=== PATIENT | male | born 1980 | race African-American/Black ===

== ENCOUNTER 2020-04-12 06:32 | Emergency (ER) | payer OTHER, SELFPAY ==
--- NOTE | ~2020-04-12 | XR_ITS ---
EXAMINATION: XR ankle LT min 3V DATE: 04/12/2020 07:28 INDICATION: Left ankle pain and lateral sided soft tissue swelling post injury 3 months prior. TECHNIQUE: Anteroposterior, oblique, mortise, and lateral views of the left ankle were obtained. COMPARISON: None. FINDINGS: Alignment is normal. No acute fracture. Joint spaces are well maintained. Tiny ossicles near the tip the mid lateral malleolus with suggestion of possible donor site at the tip of the lateral malleolus which could represent either chronic nonunited avulsion fracture fragments or heterotopic ossificati on related to chronic ankle sprain. Heterotopic ossification along the anteromedial margin of the masha us near the tip of the medial malleolus at the expected site of the anterior deltoid ligament also li mary jane sequela of chronic ankle sprain. No ankle joint effusion. Achilles and plantar calcaneal entheso phytes. The soft tissues are unremarkable. IMPRESSION: 1. Tiny ossicles near the tip of the lateral malleolus which could represent either chronic nonunited avulsion fracture fragments or heterotopic ossification related to chronic lateral ankle sprain. 2. Additional heterotopic ossification in the region of the anterior deltoid ligament consistent with chronic medial ankle sprain. Reviewed, dictated and finalized at location A. IMPRESSION: 1. Tiny ossicles near the tip of the lateral malleolus which could represent ei ther chronic nonunited avulsion fracture fragments or heterotopic ossification related to chronic lateral ankle sprain. 2. Additional heterotopic ossification in the region of the anterior deltoid li gament consistent with chronic medial ankle sprain.
[2020-04-12 06:35] VITALS: BP 154/86; PULSE 74; RESP 18; TEMP 36.6; O2SAT 100
--- NOTE | 2020-04-12 08:02 | ED.LOWEXIN ---
HPI - Extremity Injury (Lower) General Chief Complaint: Extremity Injury, Lower Stated Complaint: left ankle pain x3 months Time Seen by Provider: 04/12/20 07:04 Source: RN notes reviewed History of Present Illness HPI Narrative: Patient presents emergency department from home for left ankle pain. Patient states that approximately 3 months ago he was stepping down off of the ladder and twisted his left ankle. He states that since that time he is continued to have pain in his left ankle. He denies any new trauma or injury states he is able to walk on his ankle he denies any fevers or chills numbness or tingling or any other symptoms. Patient states his is in the emergency department today figured he would have it checked out while he was in the department Related Data Allergies Allergy/AdvReac Type Severity Reaction Status Date / Time AMOXICILLIN TRIHYDRATE Allergy Mild Unknown Uncoded 04/12/20 07:12 POTASSIUM CLAVULANATE Allergy Mild Unknown Uncoded 04/12/20 07:12 Review of Systems Review of Systems: Narrative: Gen.: Denies fevers or chills Musculoskeletal: See HPI Neuro: Denies numbness, tingling, weakness Skin: Denies rash Endo: Denies DM PMFSH Past Medical History Medical History (Updated 04/12/20 @ 08:05 by Carl Warren DO) Patient denies significant medical history Social History Social History (Updated 04/12/20 @ 08:03 by Carl Warren DO) Smoking status: Never smoker Gender identity (if verbalized by the patient): Male Exam Narrative: Exam Narrative: APPEARANCE: No acute distress, nontoxic, resting in bed Eyes: EOMI HEENT: Normocephalic, atraumatic, RESPIRATORY: No respiratory distress MUSCULOSKELETAl: Mild tenderness palpation over left medial malleolus no tenderness over anterior or lateral ankle, no swelling or ecchymosis, no tenderness of the foot or proximal fibula, dorsalis pedis pulse 2+, neurovascular intact NEURO: Awake and alert. Following commands, speech normal, no focal deficits SKIN:: Warm, dry. Normal Color no rash or lesions Course Course Emergency Course: Discussed with patient results of workup and diagnosis. Discussed need for follow-up with primary care, proper use of medication, and reasons to return to the emergency department. Patient understands and agrees to current treatment plan. Discussed with patient findings of chronic ankle sprain and need for follow-up with orthopedics as outpatient Vital Signs Vital signs: Vital Signs Temperature 97.8 F 04/12/20 06:35 Pulse Rate 74 04/12/20 06:35 Respiratory Rate 18 04/12/20 06:35 Blood Pressure 154/86 H 04/12/20 06:35 Pulse Oximetry 100 04/12/20 06:35 Temperature 97.8 F 04/12/20 06:35 Pulse Rate 74 04/12/20 06:35 Respiratory Rate 18 04/12/20 06:35 Blood Pressure 154/86 H 04/12/20 06:35 Pulse Oximetry 100 04/12/20 06:35 MDM - Extremity Injury (Lower) Imaging Data Radiologist's impression: ITS Impressions Ankle X-Ray 04/12/20 07:45 IMPRESSION: 1. Tiny ossicles near the tip of the lateral malleolus which could represent either chronic nonunited avulsion fracture fragments or heterotopic ossification related to chronic lateral ankle sprain. 2. Additional heterotopic ossification in the region of the anterior deltoid ligament consistent with chronic medial ankle sprain. Discharge Plan Discharge Clinical Impression: Left ankle sprain Patient Disposition: Home, Self-Care Condition: Stable Instructions: Antibiotic Form, Ankle Sprain (ED) Additional Instructions: Return for increasing pain numbness or tingling in the extremities or any other symptoms of concern Prescriptions: New ibuprofen [IBU] 600 mg tablet 600 mg PO Q6H PRN (Reason: pain) Qty: 20 RF: 0 Follow-up/Referrals: Reji Ceo MD [Physician] - (Follow-up in 5 to 7 days for further orthopedic treatment and evaluation) PHYSICIAN,ACID LEVELER [Primary Care Provider] - Time of Dispo
== END 2020-04-12 08:22 | disposition home or self-care (01) ==
PROVIDERS: Emergency Provider Emergency Medicine
DX: S93.402A Sprain of unspecified ligament of left ankle, initial encounter (principal); X50.9XXA Other and unspecified overexertion or strenuous movements or postures, initial encounter
CPT/HCPCS: 73610; 99283

== ENCOUNTER 2021-05-07 03:06 | Emergency (ER) | payer OTHER, SELFPAY ==
--- NOTE | ~2021-05-07 | CT_ITS ---
EXAMINATION: CT abdomen pelvis w con DATE: 05/07/2021 04:43 INDICATION: Abdominal pain TECHNIQUE: Computed tomography (CT) of the abdomen and pelvis was performed with 100 cc Omnipaque 350 intravenous contrast. The dose-length product was 1592.23 mGy-cm. Automated exposure control and ite rative reconstruction technique were employed. COMPARISON: CT dated 01/27/2011 FINDINGS: Patchy groundglass opacities of the left upper and lower lobe consistent with pneumonia. Chris rderline heart size. No significant pleural or pericardial effusion. Fatty infiltration of the liver. Fat-containing periumbilical hernia. Small fat-containing supraumbilical ventral hernia. There is a 4 mm distal left ureteral stone with left perinephric and periureteral edema and delayed l eft renal nephrogram compared with right, consistent with obstruction. The spleen, pancreas, adrenal glands and right kidney are unremarkable. Normal appendix. Nonobstructi ve bowel gas pattern. No free air. Mild lumbar spondylosis. No significant free fluid. IMPRESSION: 1. Distal left ureteral stone measuring 4 mm with mild left hydronephrosis and left periureteral/manfred nephric edema. 2: Patchy groundglass opacities of the left upper and lower lobe, suspicious for pneumonia. 3: Hepatic steatosis. Dr. Nate Spear discussed with Dr. Eulogio Shoemaker MD at 05/07/2021 07:13 CDT. Reviewed, dictated and finalized at location A. IMPRESSION: 1. Distal left ureteral stone measuring 4 mm with mild left hydronephrosis and left periureteral/perinephric edema. 2: Patchy groundglass opacities of the left upper and lower lobe, suspicious fo r pneumonia. 3: Hepatic steatosis. Dr. Nate Spear discussed with Dr. Eulogio Shoemaker MD at 05/07/2021 07:1 3 CDT.
[2021-05-07 03:20] VITALS: BP 228/133; PULSE 86; RESP 21; TEMP 37.3; O2SAT 97
--- NOTE | 2021-05-07 03:26 | PC.NURSE ---
Pt presents to ED with complaints of left abdominal pain and radiates to left lower back. Pt states he has been constipated for the past two days. Also complains of urinary discomfort. States he has been treating symptoms with acv. 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 Pt restless due to pain and states pain increases when he sits. Pt noted to be alert and oriented x4 and in no obvious distress. Breathing noted to be even and unlabored at this time. Call button and personal items within reach. Pt advised to press call button for assistance.
--- NOTE | 2021-05-07 03:30 | PC.NURSE ---
EDMD presented to bedside.
[2021-05-07] MEDS: SODIUM CHLORIDE 0.9% IV 1,000 ML 999 ML IV CONT (03:49)
[2021-05-07] MEDS: ONDANSETRON INJ 4 MG/2 ML VIAL IV PUSH (03:49)
[2021-05-07] MEDS: KETOROLAC 30 MG/ML VIAL (*BKC) IV PUSH (03:50)
[2021-05-07] MEDS: DICYCLOMINE HCL INJ 20 MG/2 ML VIAL IM (03:54)
[2021-05-07 03:58] LABS: Basophils Percent Auto 0.2 % (0.2-1.2); Eosinophils Absolute Auto 0.2 K/mm3 (0-0.3); Eosinophils Percent Auto 1.1 % (0-4.4); Hematocrit 44.7 % (42.0-52.0); Hemoglobin 14.8 g/dL (14.0-18.0); Immature Granulocyte Absolute 0.03 K/mm3 (0.00-0.031); Immature Granulocyte Percent A 0.2 % (0-0.5); Lymphocytes Absolute Auto 2.12 K/mm3 (0.9-3.2); Mean Corpuscular HGB Conc 33.1 g/dl (32-36); Mean Corpuscular Hemoglobin 30.2 pg (26-34); Mean Corpuscular Volume 91.2 fl (80-100); Mean Platelet Volume 10.5 fl (7.4-10.4); Monocytes Absolute Auto 0.9 K/mm3 (0.1-0.6); Monocytes Percent Auto 6.7 % (2.6-8.5); Neutrophils Percent Auto 75.8 % (45.5-73.1); Platelet Count Result 250 k/mm3 (150-375); Red Cell Distribution Width 11.6 % (11.5-14.5); White Blood Count 13.2 K/mm3 (4.5-10.0)
--- NOTE | 2021-05-07 04:04 | ED.GENADULT ---
HPI - General Adult General Chief complaint: Abdominal Pain Stated complaint: abdominal pain Time Seen by Provider: 05/07/21 03:16 History of Present Illness HPI narrative: Patient 41-year-old gentleman who presents the emergency department with chief complaint of abdominal pain. Patient states that he has been having left-sided abdominal pain for several days reports that he has not had a bowel movement in a couple of days but has been passing gas. Patient denies prior abdominal surgery denies history of kidney stones states is not having any nausea or vomiting denies dysuria. Patient states that not improved by anything nor is it worsened by anything Related Data Allergies Allergy/AdvReac Type Severity Reaction Status Date / Time AMOXICILLIN TRIHYDRATE Allergy Mild Unknown Uncoded 04/12/20 07:12 POTASSIUM CLAVULANATE Allergy Mild Unknown Uncoded 04/12/20 07:12 Review of Systems Review of Systems: Narrative: A 10 system review of systems was completed on the patient and is negative except for what is stated in the HPI. Nursing and ancillary documentation was reviewed. PMFSH Past Medical History Medical History Patient denies significant medical history Social History Social History Smoking status: Never smoker Gender identity (if verbalized by the patient): Male Exam Narrative: Exam Narrative: GENERAL: Well-appearing, well-nourished, and in no acute distress. HEAD: Normocephalic, atraumatic. EYES: PERRLA and EOMI. ENT: Nares clear, no rhinorrhea or epistaxis. Mucous membranes moist. NECK: Supple. CHEST: Clear to auscultation. No respiratory distress. HEART: Regular rate and rhythm. No murmur heard. Normal peripheral pulses. ABDOMEN: Soft, tenderness to palpation in the left side of the abdomen, nondistended, normal active bowel sounds. EXTREMITIES: Normal range of motion. No edema. SKIN: Warm, dry, no rash. NEURO: No focal deficits. Alert and oriented x3. PSYCH: Normal mood and affect. Course Vital Signs Vital signs: Vital Signs Temperature 37.3 C 05/07/21 03:20 Pulse Rate 86 05/07/21 03:20 Respiratory Rate 21 H 05/07/21 03:20 Blood Pressure 228/133 H 05/07/21 03:20 Pulse Oximetry 97 05/07/21 03:20 Temperature 37.3 C 05/07/21 03:20 Pulse Rate 86 05/07/21 03:20 Respiratory Rate 21 H 05/07/21 03:20 Blood Pressure 228/133 H 05/07/21 03:20 Pulse Oximetry 97 05/07/21 03:20 Medical Decision Making Vital Signs Vital Signs: Vital Signs Temperature 37.3 C 05/07/21 03:20 Pulse Rate 86 05/07/21 03:20 Respiratory Rate 21 H 05/07/21 03:20 Blood Pressure 228/133 H 05/07/21 03:20 Pulse Oximetry 97 05/07/21 03:20 Temperature 37.3 C 05/07/21 03:20 Pulse Rate 86 05/07/21 03:20 Respiratory Rate 21 H 05/07/21 03:20 Blood Pressure 228/133 H 05/07/21 03:20 Pulse Oximetry 97 05/07/21 03:20 Lab Data Result diagrams: 05/07/21 03:45 05/07/21 03:45 Labs: Lab Results 05/07/21 05/07/21 05/07/21 Range/Units 03:45 03:45 03:46 WBC 13.2 H (4.5-10.0) K/mm3 RBC 4.90 (4.6-6.20) M/mm3 Hgb 14.8 (14.0-18.0) g/dL Hct 44.7 (42.0-52.0) % MCV 91.2 (80-100) fl MCH 30.2 (26-34) pg MCHC 33.1 (32-36) g/dl RDW 11.6 (11.5-14.5) % Plt Count 250 (150-375) k/mm3 MPV 10.5 H (7.4-10.4) fl Immature Gran % (Auto) 0.2 (0-0.5) % Neut % (Auto) 75.8 H (45.5-73.1) % Lymph % (Auto) 16.0 L (18.3-44.2) % Wolfe % (Auto) 6.7 (2.6-8.5) % Eos % (Auto) 1.1 (0-4.4) % Baso % (Auto) 0.2 (0.2-1.2) % Lymph # (Auto) 2.12 (0.9-3.2) K/mm3 Wolfe # (Auto) 0.9 H (0.1-0.6) K/mm3 Eos # (Auto) 0.2 (0-0.3) K/mm3 Baso # (Auto) 0.0 (0.0-0.1) K/mm3 Abs Immat Gran (auto) 0.03 (0.00-0.031) K/mm3 Absolute Neuts (auto) 10.0 H (1.3-6.7) K/mm3
[2021-05-07 04:12] LABS: Add Urine Microscopic? YES; Appearance Urine Clear (Clear); Bilirubin Urine Negative (Negative); Blood Urine Negative (Negative); Color Urine Straw (Yellow); Glucose Urine UA Negative (Negative); Ketones Urine Negative (Negative); Leukocyte Esterase Ur Negative LEU/UL (Negative); Mucus Urine Rare /lpf; Nitrate Urine Negative (Negative); Protein Urine 1+ mg/dL (Negative); RBC Urine 0-2 /hpf (0-2); Specific Grav Ur 1.014 (1.001-1.035); Urobilinogen Urine Negative mg/dL (<2.0); WBC Urine 0-3 /hpf
[2021-05-07 04:22] LABS: Alanine Aminotransferase 34 U/L (4-50); Albumin Level 4.8 g/dL (3.5-5.1); Alkaline Phosphatase 117 U/L (38-126); Anion Gap 10 mmol/L (8-16); Aspartate Amino Transferase 49 U/L (17-59); Bilirubin,Total 0.5 mg/dL (0.2-1.3); Blood Urea Nitrogen 18 mg/dL (9-20); Calcium 9.7 mg/dL (8.4-10.2); Carbon Dioxide 28 mmol/L (22-30); Chloride 103 mmol/L (98-107); Estimated CRCL calculation 70 ml/min; Estimated Glomerular Filt Rate 54; Glucose 114 mg/dL (75-110); Lipase 118 U/L (23-300); Potassium 4.1 mmol/L (3.4-5.0); Sodium 141 mmol/L (137-145)
--- NOTE | 2021-05-07 04:30 | PC.NURSE ---
Pt to radiology via cart.
--- NOTE | 2021-05-07 04:32 | PC.NURSE ---
Pt returned from Radiology.
--- NOTE | 2021-05-07 04:50 | PC.NURSE ---
Pt returned from radiology
--- NOTE | 2021-05-07 04:59 | PC.NURSE ---
Pt in room resting on cart in its lowest position with call button and personal items within reach .Pt advised to press call button for assistance.
--- NOTE | 2021-05-07 05:03 | PC.NURSE ---
IV fluids continue to infuse due to positional site. Will stop when completed.
--- NOTE | 2021-05-07 05:37 | PC.NURSE ---
Pt resting on cart in its lowest position with call button and personal items within reach. Pt denies all pain and discomfort at this time.
[2021-05-07] MEDS: TAMSULOSIN HCL 0.4 MG CAPSULE PO (06:07)
--- NOTE | 2021-05-07 06:16 | PC.NURSE ---
EDMD presented to bedside to update pt on poc. All questions and concerns addressed. Pt advised to follow up with pcp and provided a urine strainer.
[2021-05-07 06:17] VITALS: BP 191/122; PULSE 72; RESP 20; TEMP 36.5; O2SAT 98
== END 2021-05-07 06:19 | disposition home or self-care (01) ==
PROVIDERS: Emergency Provider Emergency Medicine; PCP Family Medicine
DX: N13.2 Hydronephrosis with renal and ureteral calculous obstruction (principal); R91.8 Other nonspecific abnormal finding of lung field; K76.0 Fatty (change of) liver, not elsewhere classified
CPT/HCPCS: 36415; 74177; 80053; 81001; 83690; 85025; 96361; 96372; 96374; 96375; 99284; A9270; J0500; J1885; J2405; J7030; Q9967

== ENCOUNTER 2022-01-16 22:50 | Emergency (ER) | payer OTHER, SELFPAY ==
[2022-01-16 22:54] VITALS: BP 198/88; PULSE 95; RESP 20; TEMP 37.1; O2SAT 100
--- NOTE | 2022-01-16 23:36 | ED.FALL ---
HPI - Fall General Chief Complaint: Fall Stated Complaint: Left arm, back pain from fall Time Seen by Provider: 01/16/22 23:05 Source: patient Mode of arrival: ambulatory Limitations: no limitations History of Present Illness HPI Narrative: 41-year-old male presents today with complaints of left back pain left arm pain and left buttock pain radiating down the leg. Patient states yesterday he fell on the ice. Patient states yesterday he had no pain went to bed and woke up this morning with pain. Patient denies using any pain relieving medications today. Patient states aggravating factors include certain movements. Patient currently has no alleviating factors. Patient states he did hit his head when he fell but denies LOC. Related Data Home Medications Medication Instructions Recorded Confirmed No Home Medications 01/16/22 01/16/22 Allergies Allergy/AdvReac Type Severity Reaction Status Date / Time AMOXICILLIN TRIHYDRATE Allergy Mild Unknown Uncoded 01/16/22 23:34 POTASSIUM CLAVULANATE Allergy Mild Unknown Uncoded 01/16/22 23:34 Review of Systems Review of Systems: CONSTITUTIONAL: Denies fever, chills, or sweats. EYES: Denies visual changes, redness, or discharge. ENT: Denies rhinorrhea, congestion, sore throat, or otalgia. CARDIOVASCULAR: Denies chest pain, palpitations, or edema. RESPIRATORY: Denies cough or dyspnea. GASTROINTESTINAL: Denies abdominal pain, nausea, vomiting, or diarrhea. GENITOURINARY: Denies dysuria or hematuria. SKIN: Denies rash or itching. MUSCULOSKELETAL: Positive for back pain, left forearm pain, left buttock pain. NEUROLOGIC: Denies headache, numbness, dizziness, or weakness. PSYCHIATRIC: Denies anxiety or depression. Or Stewart [facility] Past Medical History Medical History Patient denies significant medical history Social History Social History Smoking status: Never smoker Gender identity (if verbalized by the patient): Male Exam Narrative: GENERAL: Well-appearing, well-nourished, and in no acute distress. HEAD: Normocephalic, atraumatic. EYES: PERRLA and EOMI. ENT: Nares clear, no rhinorrhea or epistaxis. Mucous membranes moist. Oropharynx without tonsillar hypertrophy exudate or other lesions. Bilateral TMs pearly springer nonbulging NECK: Supple. No adenopathy or masses. No carotid bruits or JVD CHEST: Clear to auscultation. No respiratory distress. No wheezes rales or rhonchi HEART: Regular rate and rhythm. No murmur heard. Normal peripheral pulses. ABDOMEN: Soft, nontender, nondistended, normal active bowel sounds. EXTREMITIES: Normal range of motion. No edema. Muscle spasms noted to back. SKIN: Warm, dry, no rash. NEURO: No focal deficits. Alert and oriented x3. PSYCH: Normal mood and affect. Course Course Emergency Course: Patient's pain is positional in nature and localized to back without signs of cord compression or cauda equina based on neurological exam, skeletal exam and history. No fever or other significant factors to suggest osteomyelitis or spinal epidural abscess. No symptoms or signs to suggest pain is referred from abdominal or / cardiopulmonary sources. No pulsatile masses noted on exam. Patient ambulates with steady gait and is stable for outpatient management given case findings. Patient without blurred vision, chest pain, SOB. Patient unsure last time he was at a physician. BP elevated: patient in pain, has increased stress, and has mentioned he will be paying for this due to no insurance. BP elevated. Patient to be discharge home with follow up with primary care. Reinforced diet and weight loss for helping to control BP. 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 Patient to follow up with primary. Vital Signs Vital signs: Vital Signs Temperature 37.1 C 01/16/22 22:54 Pulse Rate 9
[2022-01-16] MEDS: CYCLOBENZAPRINE HCL 10 MG TABLET PO (23:42)
[2022-01-16 23:47] VITALS: BP 170/108; PULSE 87; RESP 16; O2SAT 97
== END 2022-01-17 00:18 | disposition home or self-care (01) ==
PROVIDERS: Emergency Provider Nurse Practitioner Family
DX: S29.012A Strain of muscle and tendon of back wall of thorax, initial encounter (principal); W00.0XXA Fall on same level due to ice and snow, initial encounter
CPT/HCPCS: 99283; A9270

== ENCOUNTER 2022-10-02 05:08 | Emergency (ER) | payer BC, SELFPAY ==
[2022-10-02] VITALS (18 sets, daily range): BP systolic 184–214; BP diastolic 127–140; PULSE 75–96; RESP 14–25; TEMP 36.6; O2SAT 97–100
--- NOTE | ~2022-10-02 | XR_ITS ---
EXAMINATION: XR chest 2V DATE: 10/02/2022 05:38 INDICATION: Shortness of breath TECHNIQUE: PA and lateral views of the chest are obtained. COMPARISON: 07/31/2017 FINDINGS: Cardiomegaly is noted. There are patchy interstitial and airspace opacities of the lungs. N o pleural effusion or pneumothorax. There is mild thoracic spondylosis. IMPRESSION: 1. Cardiomegaly. 2. Patchy opacities of the lungs which could reflect pneumonia and/or pulmonary edema. Reviewed, dictated and finalized at location B. IFIED CODER
[2022-10-02] MEDS: ALBUTEROL SULFATE NEB 2.5 MG/3 ML INH 5 MG INHALATION (05:55)
--- NOTE | 2022-10-02 05:56 | ED.GENADULT ---
HPI - General Adult General Chief complaint: Shortness of Breath/Dyspnea Stated complaint: shortness of breath Time Seen by Provider: 10/02/22 05:21 History of Present Illness HPI narrative: 42-year-old male presented the emergency department for evaluation of worsening shortness of breath. Patient does have a history of asthma and states over the last 2 weeks he has had an asthma exacerbation. Patient states that he is at rest his shortness of breath is controlled but he does notices shortness of breath with ambulation and exertion. Patient states he has been using his albuterol inhaler more frequently and states this does help. Patient denies any associated chest. Patient denies any history of diabetes, hypertension, high cholesterol. Related Data Allergies Allergy/AdvReac Type Severity Reaction Status Date / Time AMOXICILLIN TRIHYDRATE Allergy Mild Unknown Uncoded 01/16/22 23:34 POTASSIUM CLAVULANATE Allergy Mild Unknown Uncoded 01/16/22 23:34 Review of Systems Review of Systems: CONSTITUTIONAL: Denies fever, chills, or sweats. EYES: Denies visual changes, redness, or discharge. ENT: Denies rhinorrhea, congestion, sore throat, or otalgia. CARDIOVASCULAR: Denies chest pain, palpitations, or edema. RESPIRATORY: See HPI GASTROINTESTINAL: Denies abdominal pain, nausea, vomiting, or diarrhea. GENITOURINARY: Denies dysuria or hematuria. SKIN: Denies rash or itching. MUSCULOSKELETAL: Denies back pain, joint pain, or myalgia. NEUROLOGIC: Denies headache, numbness, or weakness. PMFSH Past Medical History Medical History Patient denies significant medical history Social History Social History Smoking status: Never smoker Gender identity (if verbalized by the patient): Male Exam Narrative: APPEARANCE: Well appearing, no pain, no distress, well-nourished. HEAD: normocephalic, atraumatic. EYES: PERRLA/EOMI, conjunctivae clear. NOSE: Normal no drainage EARS:TMS clear with good light reflex. THROAT: Pharynx clear, no exudate. NECK: Supple. No adenopathy, no masses. RESPIRATORY: Minor expiratory wheeze CARDIOVASCULAR: Regular rate and rhythm without murmurs rubs or gallops. ABDOMINAL: Soft, nontender, nondistended, normal bowel sounds MUSCULOSKELETAL: Moves all extremities. Strength/ROM intact, No edema, No calf tenderness. NEURO: Alert. Cranial nerves II through XII intact. Grossly intact SKIN: Warm, dry. Normal Color Course Course Emergency Course: Patient did feel significantly improved after a breathing treatment. Patient's blood pressure was elevated but patient declined treatment for this. Patient was started on prednisone for a suspected asthma exacerbation. Patient was also started on azithromycin for concern of atypical pneumonia due to the persistence of the cough. Vital Signs Vital signs: Vital Signs Temperature 97.9 F 10/02/22 05:09 Pulse Rate 91 10/02/22 05:09 Respiratory Rate 24 H 10/02/22 05:09 Blood Pressure 195/138 H 10/02/22 05:09 Pulse Oximetry 97 10/02/22 05:09 Oxygen Delivery Room Air 10/02/22 05:09 Temperature 97.9 F 10/02/22 05:09 Pulse Rate 75 10/02/22 07:00 Respiratory Rate 18 10/02/22 07:00 Blood Pressure 205/129 H 10/02/22 06:47 Pulse Oximetry 100 10/02/22 07:00 Oxygen Delivery Room Air 10/02/22 05:27 Medical Decision Making Vital Signs Vital Signs: Vital Signs Temperature 97.9 F 10/02/22 05:09 Pulse Rate 91 10/02/22 05:09 Respiratory Rate 24 H 10/02/22 05:09 Blood Pressure 195/138 H 10/02/22 05:09 Pulse Oximetry 97 10/02/22 05:09 Oxygen Delivery Room Air 10/02/22 05:09 Temperature 97.9 F 10/02/22 05:09 Pulse Rate 75 10/02/22 07:00 Respiratory Rate 18 10/02/22 07:00 Blood Pressure 205/129 H 10/02/22 06:47 Pulse Oximetry 100 10/02/22 07:00 Oxygen Delivery Room Air 10/02/22 05:27
[2022-10-02] MEDS: predniSONE 40 MG, predniSONE 10 MG 50 MG PO (05:57)
[2022-10-02 06:26] LABS: Influenza A QL RT-PCR Negative (Negative); Influenza B QL RT-PCR Negative (Negative); SARS-CoV-2 RNA PCR Negative
== END 2022-10-02 07:10 | disposition home or self-care (01) ==
PROVIDERS: Emergency Provider Emergency Medicine; PCP Internal Medicine
DX: J45.901 Unspecified asthma with (acute) exacerbation (principal); Z20.822 Contact with and (suspected) exposure to COVID-19
CPT/HCPCS: 71046; 87636; 94640; 99283; J7512

== ENCOUNTER 2022-10-31 14:22 | Observation (INO) | payer BC, SELFPAY ==
[2022-10-31] VITALS (151 sets, daily range): BP systolic 159–195; BP diastolic 103–143; PULSE 78–110; RESP 10–37; TEMP 37.3; O2SAT 94–100
--- NOTE | ~2022-10-31 | CT_ITS ---
EXAMINATION: CTA chest PE protocol DATE: 10/31/2022 18:01 INDICATION: sob.left upper back pain, rule out PE TECHNIQUE: Computed tomography angiography (CTA) of the chest was performed with 100 mL Omnipaque-350 intravenous contrast timed to evaluate the pulmonary arteries. Coronal maximum intensity projection 3D-reconstructions were created by the technologist. The dose-length product (DLP) was 1091.16 mGy-cm . Automated exposure control and iterative reconstruction technique were employed. COMPARISON: X-ray chest, same date. FINDINGS: Lung parenchyma and airways: Minimal peripheral reticular and groundglass opacities. Pleura: Unremarkable. Thoracic inlet, axillae and chest wall: Unremarkable. Thoracic aorta: Normal. Mediastinum: Normal. Prominent but subcentimeter mediastinal and paraesophageal lymph nodes. Heart and pericardium: The heart is enlarged. No pericardial effusion. Coronary artery calcifications: Absent. Upper abdomen: No significant finding. Bones: No acute osseous finding. Pulmonary arteries: Study quality: Adequate. No pulmonary emboli detected. IMPRESSION: No CT evidence of acute pulmonary embolus. Mild bronchiolitis. Cardiomegaly. Reviewed, dictated and finalized at location K. IRON INSPECTOR
--- NOTE | ~2022-10-31 | XR_ITS ---
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 RESULT: Lines, tubes, and devices: None. Lungs and pleura: Slightly increased peripheral reticular opacities, overlying potentially chronic r eticulonodular opacities. No focal consolidation, large effusion, or pneumothorax Cardiomediastinal silhouette: Stable. Other: No acute osseous or upper abdominal finding. IMPRESSION: Pulmonary opacities may represent bronchiolitis, as can be seen with atypical infection, asthma, aspi ration, and small airways disease. Reviewed, dictated and finalized at location K. UNICATION SKILLS INSTRUCTOR IMPRESSION: Pulmonary opacities may represent bronchiolitis, as can be seen with atypical i nfection, asthma, aspiration, and small airways disease.
--- NOTE | 2022-10-31 14:53 | ECG_ITS ---
Measurements Intervals [place] Rate: 92 P: 47 NC: 153 QRS: 31 QRSD: 96 T: -32 QT: 370 QTc: 458 Interpretive Statements SINUS RHYTHM LEFT ATRIAL ENLARGEMENT [-0.15mV P-WAVE IN V1/V2] NONSPECIFIC T-WAVE ABNORMALITY NO PREVIOUS ECG AVAILABLE FOR COMPARISON Electronically Signed On 11-01-2022 8:28:16 ELECTRONICS PROCESSOR by Jeramy Hartley M.D.
[2022-10-31 16:25] LABS: Basophils Percent Auto 0.3 % (0.2-1.2); Eosinophils Absolute Auto 0.4 K/mm3 (0-0.3); Eosinophils Percent Auto 4.7 % (0-4.4); Hematocrit 41.8 % (42.0-52.0); Hemoglobin 14.2 g/dL (14.0-18.0); Immature Granulocyte Absolute 0.02 K/mm3 (0.00-0.031); Immature Granulocyte Percent A 0.2 % (0-0.5); Lymphocytes Absolute Auto 2.59 K/mm3 (0.9-3.2); Lymphocytes Percent Auto 28.9 % (18.3-44.2); Mean Corpuscular Hemoglobin 30.8 pg (26-34); Mean Corpuscular Volume 90.7 fl (80-100); Mean Platelet Volume 10.3 fl (7.4-10.4); Monocytes Absolute Auto 0.5 K/mm3 (0.1-0.6); Neutrophils Absolute Auto 5.5 K/mm3 (1.3-6.7); Neutrophils Percent Auto 60.9 % (45.5-73.1); Platelet Count Result 212 k/mm3 (150-375); Red Blood Count 4.61 M/mm3 (4.6-6.20)
[2022-10-31 16:38] LABS: Alanine Aminotransferase 82 U/L (6-50); Albumin Level 3.9 g/dL (3.5-5.1); Alkaline Phosphatase 94 U/L (38-126); Anion Gap 3 mmol/L (8-16); Aspartate Amino Transferase 48 U/L (17-59); Bilirubin,Total 0.6 mg/dL (0.2-1.3); Blood Urea Nitrogen 15 mg/dL (9-20); Calcium 8.5 mg/dL (8.4-10.2); Carbon Dioxide 30 mmol/L (22-30); Chloride 106 mmol/L (98-107); Estimated CRCL calculation 107 ml/min; Estimated Glomerular Filt Rate > 60; Glucose 94 mg/dL (65-110); Potassium 4.1 mmol/L (3.4-5.0); Sodium 139 mmol/L (137-145)
--- NOTE | 2022-10-31 16:40 | ED.BACK ---
HPI - Back Pain/Injury General Chief Complaint: Back Pain/Injury Stated Complaint: back pain, LUE tingling Time Seen by Provider: 10/31/22 15:23 Source: patient and RN notes reviewed Mode of arrival: ambulatory Limitations: no limitations History of Present Illness HPI Narrative: This is a 42 year old male with history of asthma who presents for evaluation of left upper back tightness for 1 month. He states he has had constant tightness for 3-4 weeks. He was evaluated at [place] 1 month ago for his symptoms and he was treated for acute asthma exacerbation. He was discharge with prednisone. He states he initially felt better but his pain worsened again. He is reports mild cough and shortness of breath. He denies chest pain, abdominal pain, fever, chills, nausea or vomiting. He states he returned tonight because he has tingling and tightness going down his left arm. He states the numbness has resolved. He denies left side weakness, left leg numbness, dizziness or headache. Related Data Allergies Allergy/AdvReac Type Severity Reaction Status Date / Time AMOXICILLIN TRIHYDRATE Allergy Mild Unknown Uncoded 01/16/22 23:34 POTASSIUM CLAVULANATE Allergy Mild Unknown Uncoded 01/16/22 23:34 Review of Systems Review of Systems: All systems reviewed & are unremarkable except as noted in HPI and below Constitutional: Constitutional: Denies chills, Denies fatigue and Denies fever(s) ENT: Denies nasal congestion Cardiovascular: Cardiovascular: Denies chest pain and Denies rapid heart rate Respiratory: Respiratory: Denies chest congestion, Reports cough, Reports dyspnea and Reports wheezing Gastrointestinal: Gastrointestinal: Denies abdominal pain, Denies nausea and Denies vomiting Musculoskeletal: Musculoskeletal: Reports back pain Neurologic: Denies dizziness, Denies syncope, Denies headache(s), Denies focal weakness and Reports numbness PMFSH Past Medical History Medical History Asthma Social History Social History Smoking status: Never smoker Gender identity (if verbalized by the patient): Male Exam Narrative: GENERAL: Well-appearing, well-nourished, and in no acute distress. HEAD: Normocephalic, atraumatic EYES: PERRLA and EOMI, conjunctiva clear without discharge EARS: TM's clear bilaterally without erythema or dullness NOSE: Nares clear, no rhinorrhea or epistaxis THROAT:Mucous membranes moist, Oropharynx normal without erythema, exudate, peritonsillar swelling or fluctuance NECK: Supple, without lymphadenopathy or mass RESPIRATORY: No respiratory distress, Airway patent, Respirations non-labored, Clear to auscultation without rales, rhonchi or wheeze HEART: Regular rate and rhythm. No murmur heard. Normal peripheral pulses. ABDOMEN: Soft, nontender, nondistended, normal active bowel sounds. No masses. No rebound or guarding, No organomegaly. EXTREMITIES: No edema, normal strength with full range of motion. SKIN: Warm, dry, normal color without rash NEURO: Alert and oriented x3. CN 2-12 grossly intact. No focal deficits. PSYCH: Normal mood and affect. Neuro: Speech: No Abnormal speech present Course Reevaluation(s) Reevaluation #1: PAtient presented with upper back tightness. This may be due to asthma but I am concerned due to severely elevated BP. troponin is mildly elevated likely due to hypertension. he denies chest pain. He is agreeable to admission. I have discussed case with Robyn who agrees to admit in IMU. Date: 10/31/22 Time: 19:26 Vital Signs Vital signs: Vital Signs Temperature 99.2 F 10/31/22 14:47 Pulse Rate 105 H 10/31/22 14:47 Respiratory Rate 18 10/31/22 14:47 Blood Pressure 159/103 H 10/31/22 14:47 Pulse Oximetry 95 10/31/22 14:47 Oxygen Delivery Room Air 10/31/22 14:47 Temperature 99.2 F 10/31/22 14:47 Pulse Rate 105 H 10/31/22 14:47 Re
[2022-10-31 17:09] LABS: Prothrombin Time 13.2 Seconds (11.1-14.7)
[2022-10-31] MEDS: LABETALOL HCL INJ 100 MG/20 ML VIAL 10 MG IV PUSH (17:31)
[2022-10-31 17:57] LABS: Influenza A QL RT-PCR Negative (Negative); Influenza B QL RT-PCR Negative (Negative); SARS-CoV-2 RNA PCR Negative
--- NOTE | 2022-10-31 18:00 | PC.NURSE ---
Left arm BP 187/136 Right arm BP 185/124 Right leg BP 224/153 Left leg BP 210/141
[2022-10-31] MEDS: hydrALAZINE HCL 20 MG/ML VIAL IV PUSH (18:07)
[2022-10-31] MEDS: predniSONE 20 MG TABLET 60 MG PO (18:30)
[2022-10-31] MEDS: ALBUTEROL SULFATE (*SP) AEROSOL 1 PUFF 2 PUFF INHALATION (18:56)
--- NOTE | 2022-10-31 20:00 | PM.IMHP ---
H&P: HPI History of Present Illness Date/Time: 10/31/22 20:00 Chief Complaint: ?tightness around his lungs Narrative: 42-year-old male with past medical history of reported morbid obesity and asthma who presented to the ER with tightness around his lungs for several weeks. The patient had been evaluated in the ER on 10/02/2022 and was diagnosed with asthma exacerbation. At that time he reported dyspnea with exertion. He was discharged on prednisone and azithromycin. He denied prior history of hypertension but every time the patient has been evaluated in the ER since 2019 he has had documented blood pressures ranging between 150 systolic up to 230 systolic. The patient reports that today he was driving when he developed pressure in his left back. The pain travel down his left arm and was tingling and numbness sensation. The symptoms improved after he arrived to the ER and received 20 mg of IV hydralazine, 1 in nitropaste and albuterol inhaler. After medications were administered the patient's blood pressures improved from the 190 systolic down to the 160s. He has not seen a physician since the beginning of . His insurance assigned admit new physician and has not yet followed up. He does not check his blood pressures at home. He relates all of his episodes of dyspnea due to his history of asthma. However the patient had not had asthma symptoms since childhood until a a couple of years ago. He thinks that his symptoms were related to starting an antibiotic therapy in that react the aging his asthma. He denies any wheezing. He has not had any lower extremity swelling or orthopnea. His reports that he does intermittently snore more a but the patient denies symptoms of daytime fatigue or excessive daytime sleepiness. He denies any significant cough or cold symptoms, fevers or chills. He denies any recent ill contacts. He reports that he has been having increased asthma symptoms and has been having to use his albuterol inhaler couple of times a week. He ran out of his albuterol inhaler this past week. Patient is obese but reports that his weight is been stable. I would start the patient on lisinopril and hydrochlorothiazide. Patient was admitted as observation status. I went down to evaluate the patient in the ER. After I completed march history and was educating the patient about his disease process the patient stated that he knew his blood pressure was elevated due to being uncomfortable in the ER bed. I tried to explain to the patient the risks of chronically uncontrolled hypertension in that his blood pressures have been elevated for years each time he has been evaluated. The level of his blood pressure elevation was not mild in is not likely just due to white coat hypertension. I discussed risks including developing chronic kidney disease and stroke. Risk of with severe stroke was also discussed. Patient did have an elevated troponin but troponin profile is were flat. I did indicate to the patient that this is a sign that his heart is not dealing well with his excessive hypertension. The patient indicated that he was probably still going to leave AM. I told the patient if he did decide to leave AM that I would provide him with script for antihypertensives. Unfortunately, nursing staff did not inform me the patient was definitely leaving [facility] and the found out after the patient artery left the hospital. Thusly the patient did not receive prescriptions for lisinopril 20 and hydrochlorothiazide 25 that is been ordered. However patient did not seem interested in taking the medications as he still did not believe that he truly had hypertension. Review of Systems Review of Systems: 12 systems were reviewed with pertinent positives and negatives per HPI. Except as documented in the HPI, all other systems were reviewed and are negative. [facility] Past Medical History Medical History (Updated 11/01/22 @ 20:19 by Odette Miranda, DO
[2022-10-31] MEDS: NITROGLYCERIN OINTMENT 1 INCH DOSE TRANSDERM (20:25)
[2022-10-31] MEDS: lisinopriL 20 MG TABLET PO (20:33)
[2022-10-31 20:38] LABS: Troponin I 0.052 ng/mL (0.000-0.034)
[2022-10-31 21:55] LABS: RSV RNA, RT-PCR Negative (Negative)
[2022-10-31 22:11] LABS: Appearance Urine Clear (Clear); Bilirubin Urine Negative (Negative); Blood Urine Negative (Negative); Color Urine Yellow (Yellow); Glucose Urine UA Negative (Negative); Ketones Urine Negative (Negative); Leukocyte Esterase Ur Negative LEU/UL (Negative); Nitrate Urine Negative (Negative); Protein Urine Negative (Negative); Specific Grav Ur 1.015 (1.001-1.035); Urobilinogen Urine 0.2 mg/dL (<2.0)
[2022-10-31 22:29] LABS: Add Urine Microscopic? NO
[2022-10-31 22:30] LABS: Amphetamine Screen Urine Negative (Negative); Barbiturate Screen Urine Negative (Negative); Benzodiazepines Screen Urine Negative (Negative); Cannabinoid Screen Urine Negative (Negative); Cocaine Screen Urine Negative (Negative); Methadone Screen Urine Negative (Negative); Opiate Screen Urine Negative (Negative); Phencyclidine Screen Urine Negative (Negative)
[2022-11-01] MEDS: hydrALAZINE HCL 20 MG/ML VIAL 10 MG IV PUSH (00:40)
[2022-11-01 00:41] VITALS: BP 184/110; PULSE 87
[2022-11-01 00:51] VITALS: BP 168/110; PULSE 87; RESP 21; O2SAT 100
== END 2022-11-01 01:00 | disposition left against medical advice (07) ==
LOC: ANHED 18:35 → ANHIMU 11-01 00:42
PROVIDERS: Emergency Medicine; Admitting Provider Internal Medicine; Emergency Provider General Practice; PCP Internal Medicine; Visit Provider Internal Medicine
DX: I16.0 Hypertensive urgency (principal); R77.8 Other specified abnormalities of plasma proteins; J20.9 Acute bronchitis, unspecified; J21.9 Acute bronchiolitis, unspecified; M54.9 Dorsalgia, unspecified; J45.909 Unspecified asthma, uncomplicated; R20.2 Paresthesia of skin; Z53.29 Procedure and treatment not carried out because of patient's decision for other reasons; Z20.822 Contact with and (suspected) exposure to COVID-19; E66.9 Obesity, unspecified; Z68.41 Body mass index [BMI] 40.0-44.9, adult; R94.31 Abnormal electrocardiogram [ECG] [EKG]; K76.0 Fatty (change of) liver, not elsewhere classified; Z87.442 Personal history of urinary calculi; F10.90 Alcohol use, unspecified, uncomplicated; Z79.51 Long term (current) use of inhaled steroids; Z79.52 Long term (current) use of systemic steroids; Z82.5 Family history of asthma and other chronic lower respiratory diseases; Z79.899 Other long term (current) drug therapy
CPT/HCPCS: 36415; 71046; 71275; 80053; 80307; 81003; 84443; 84484; 85025; 85380; 85610; 85730; 87634; 87636; 93005; 96374; 96375; 99285; A9270; G0378; J0360; J7512; Q9967

== ENCOUNTER 2022-11-02 14:12 | Inpatient (IN) | payer BC, SELFPAY ==
[2022-11-02] VITALS (11 sets, daily range): BP systolic 164–184; BP diastolic 108–130; PULSE 79–103; RESP 16–25; TEMP 36.4–36.9; O2SAT 95–99; BMI 39.6
--- NOTE | ~2022-11-02 | NM_ITS ---
EXAMINATION: NM stress w perf spect multi DATE: 11/04/2022 15:35 INDICATION: Chest pain. TECHNIQUE: Rest images were obtained following intravenous administration of 10.4 mCi Tc99m tetrofosm in (Re.nooble). The patient performed an exercise activity. At peak exercise, 33 mCi Tc99m tetrofosmin (Myoview) was administered intravenously, and supine and prone stress images were obtained. Data was reconstructed into short axis and horizontal and vertical long axis SPECT images. Gated SPECT images were also obtained. COMPARISON: Chest CT 10/31/2022 FINDINGS: There is left ventricular enlargement of the heart. There is a small, moderate severity, fi xed perfusion defect involving left ventricular apex and apical inferior segment, consistent with inf arct. No reversible component to suggest ischemia. There is global hypokinesis. Left ventricular ej ection fraction measures 23%. IMPRESSION: 1. 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 2. Global hypokinesis with left ventricular ejection fraction measuring 23%. Reviewed, dictated and finalized at location A. ESTRA DIRECTOR IMPRESSION: 1. Small area of moderate infarct involving left ventricular apex and apical in ferior segment. 2. Global hypokinesis with left ventricular ejection fraction measuring 23%.
--- NOTE | ~2022-11-02 | XR_ITS ---
EXAMINATION: XR chest 2V Exam Date/Time: 11/02/2022 15:38 FORTUNE COOKIE MAKER HISTORY: chest pain Comparison: 10/31/2022. RESULT: Lines, tubes, and devices: None. Lungs and pleura: Unchanged diffuse reticulonodular opacities. Cardiomediastinal silhouette: Stable. Other: No acute osseous or upper abdominal finding. IMPRESSION: Changes suggestive of mild bronchiolitis, unchanged. Reviewed, dictated and finalized at location K. UNE COOKIE MAKER
--- NOTE | ~2022-11-02 | US_ITS ---
EXAMINATION: US right upper quadrant DATE: 11/03/2022 15:56 INDICATION: Elevated liver function tests TECHNIQUE: Multiple grayscale and Doppler ultrasound images of the abdomen were obtained. COMPARISON: None FINDINGS: The visualized head and body of the pancreas are normal. Visualized proximal to mid inferior vena cav a is normal. Liver has normal echogenicity and contour, with a smooth surface. No liver lesion identi fied. No intrahepatic biliary duct dilation suspected. Portal venous flow was seen in the hepatopetal , normal direction and has normal Doppler waveform. Visualized portion of the right kidney demonstrat es normal contour and echogenicity with no hydronephrosis. The gallbladder is normal in appearance. There is no cholelithiasis. The common bile duct measures 6 mm, which is at the upper limits of jeanine l. The region of the distal common bile duct is obscured. Sonographic Fernandez sign was reported as neg ative by the rag washer. IMPRESSION: 1. Normal right upper quadrant ultrasound. Reviewed, dictated and finalized at location A. GHT WEIGHER
--- NOTE | 2022-11-02 14:46 | ECG_ITS ---
Measurements Intervals Pedro Rate: 88 P: 47 DC: 139 QRS: 24 QRSD: 98 T: 26 QT: 374 QTc: 454 Interpretive Statements SINUS RHYTHM WITH SINUS ARRHYTHMIA POSSIBLE LEFT ATRIAL ENLARGEMENT [-0.1mV P WAVE IN V1/V2] NONSPECIFIC T-WAVE ABNORMALITY COMPARED TO ECG 10/31/2022 14:58:13 NO SIGNIFICANT DIFFERENCE Electronically Signed On 11-02-2022 15:18:34 [employer]BER[employer] SALES AGENT by Jeramy Hartley M.D.
[2022-11-02 15:34] LABS: Basophils Percent Auto 0.4 % (0.2-1.2); Eosinophils Absolute Auto 0.2 K/mm3 (0-0.3); Eosinophils Percent Auto 2.9 % (0-4.4); Hematocrit 45.2 % (42.0-52.0); Hemoglobin 14.6 g/dL (14.0-18.0); Immature Granulocyte Absolute 0.02 K/mm3 (0.00-0.031); Immature Granulocyte Percent A 0.2 % (0-0.5); Lymphocytes Absolute Auto 2.45 K/mm3 (0.9-3.2); Lymphocytes Percent Auto 29.2 % (18.3-44.2); Mean Corpuscular HGB Conc 32.3 g/dl (32-36); Mean Corpuscular Hemoglobin 29.8 pg (26-34); Mean Corpuscular Volume 92.2 fl (80-100); Mean Platelet Volume 10.7 fl (7.4-10.4); Monocytes Absolute Auto 0.5 K/mm3 (0.1-0.6); Monocytes Percent Auto 6.3 % (2.6-8.5); Neutrophils Absolute Auto 5.1 K/mm3 (1.3-6.7); Platelet Count Result 241 k/mm3 (150-375); White Blood Count 8.4 K/mm3 (4.5-10.0)
[2022-11-02 15:47] LABS: Alanine Aminotransferase 82 U/L (6-50); Albumin Level 4.3 g/dL (3.5-5.1); Alkaline Phosphatase 66 U/L (38-126); Anion Gap 6 mmol/L (8-16); Aspartate Amino Transferase 96 U/L (17-59); Bilirubin,Total 0.8 mg/dL (0.2-1.3); Blood Urea Nitrogen 18 mg/dL (9-20); Calcium 8.7 mg/dL (8.4-10.2); Carbon Dioxide 27 mmol/L (22-30); Chloride 105 mmol/L (98-107); Estimated CRCL calculation 91 ml/min; Estimated Glomerular Filt Rate > 60; Glucose 95 mg/dL (65-110); Lipase 96 U/L (23-300); Potassium 4.5 mmol/L (3.4-5.0); Sodium 138 mmol/L (137-145)
[2022-11-02 15:51] LABS: INR 1.1; Prothrombin Time 13.8 Seconds (11.1-14.7)
[2022-11-02 15:52] LABS: Partial Thromboplastin Time 32.4 SECONDS (22.3-36.8)
[2022-11-02 16:02] LABS: Troponin I 0.043 ng/mL (0.000-0.034)
[2022-11-02] MEDS: ASPIRIN 81 MG CHEWABLE TABLET 324 MG PO (16:36)
[2022-11-02] MEDS: hydrALAZINE HCL 20 MG/ML VIAL 10 MG IV PUSH (16:40)
--- NOTE | 2022-11-02 18:50 | ED.GENADULT ---
HPI - General Adult General Chief complaint: Recheck/Abnormal Lab/Rx Stated complaint: ELEVATED BP X3D Time Seen by Provider: 11/02/22 15:52 History of Present Illness HPI narrative: Patient is a 42-year-old male who presents ER with headache and shoulder pain. Patient admitted to the hospital on 10/31/2022 with hypertensive urgency/emergency however he then signed out AMA. Reports today he had sudden onset of headache and then pain in his left shoulder tingling down his arm which was similar to previous visit. He takes no antihypertensive medications. No exertional chest discomfort. No alleviating factors that he is found. He is once in hospital at this time. Denies drug use. Related Data Home Medications Medication Instructions Recorded Confirmed albuterol sulfate 90 mcg/actuation 1 inh inhalation PRN PRN Shortness 11/02/22 11/02/22 aerosol inhaler Of Breath Or Wheezing Allergies Allergy/AdvReac Type Severity Reaction Status Date / Time AMOXICILLIN TRIHYDRATE Allergy Mild Unknown Uncoded 01/16/22 23:34 POTASSIUM CLAVULANATE Allergy Mild Unknown Uncoded 01/16/22 23:34 Review of Systems Review of Systems: All systems reviewed & are unremarkable except as noted in HPI and below Constitutional: Constitutional: Denies chills, Denies fatigue and Denies fever(s) ENT: Denies nasal congestion and Denies sore throat Cardiovascular: Cardiovascular: Denies chest pain, Denies rapid heart rate and Reports radiating jaw, neck or arm pain Respiratory: Respiratory: Denies cough, Denies dyspnea and Denies wheezing Neurologic: Denies syncope, Reports headache(s), Denies focal weakness and Denies numbness PMF Past Medical History Medical History (Updated 11/03/22 @ 00:02 by Vito Zuleta MD) Asthma Essential hypertension, malignant Hepatic steatosis Kidney stones Left ureteral stone with hydronephrosis April 2021 Obesity BMI of 41.4 10/31/2022 Surgical History Surgical History (Updated 11/01/22 @ 20:20 by Odette Miranda DO) History of tonsillectomy (~2018) Family History Family History Father , 68 Agent orange exposure Mother Asthma Meningitis Social History Social History Social History: Patient lives with his of 21 years. They have 2 children ages 18 and 19 years old. He very rarely drinks alcohol and only small amounts. 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 Smoking status: Never smoker Alcohol intake: current Drinks per week: 1 Alcohol use details: Rare use in small amounts Substance use: never Lack of Transportation: No Lack of Food: Never True Current Housing: I Have Housing Concerned About Future Housing: No Difficulty Paying Gas/Electric Bills: No Difficulty Paying for Meds: No Currently Unemployed: No Education: Trade/Vocational Certificate Difficulty w/ Childcare or Family Care: No Additional living arrangements comments: Gender identity (if verbalized by the patient): Male Sexual Orientation (if Verbalized by the Patient): Straight or Heterosexual Spiritual care concerns: No Exam Narrative: GENERAL: Well-appearing, well-nourished, and in no acute distress. HEAD: Normocephalic, atraumatic. ENT: Mucous membranes moist. CHEST: Clear to auscultation. No respiratory distress. HEART: Regular rate and rhythm. Normal peripheral pulses. ABDOMEN: Soft, nontender, nondistended. EXTREMITIES: Normal range of motion. No edema. SKIN: Warm, dry, no rash. NEURO: Alert and oriented x3. PSYCH: Normal mood and affect. Course Course Emergency Course: Patient resting comfortably. Discussed treatment plan. Admit to hospital service. Vital Signs Vital signs: Vital Signs Temperature 98.5 F 11/02/22 14:44 Pulse Rate 93 11/02/22 14:44 Respiratory Rate 20 11/02/22 14:44 Blood
[2022-11-02] MEDS: lisinopriL 20 MG TABLET PO (18:58)
[2022-11-02] MEDS: hydroCHLOROthiazide 25 MG TABLET PO (18:58)
--- NOTE | 2022-11-02 19:16 | PC.NURSE ---
Assumed care of pt at this time.
[2022-11-02 20:16] LABS: Influenza A QL RT-PCR Negative (Negative); Influenza B QL RT-PCR Negative (Negative); SARS-CoV-2 RNA PCR Negative
[2022-11-02 20:18] LABS: Troponin I 0.052 ng/mL (0.000-0.034)
[2022-11-02 22:30] LABS: Troponin I 0.043 ng/mL (0.000-0.034)
--- NOTE | 2022-11-02 23:08 | PM.IMHP ---
H&P: HPI History of Present Illness Date/Time: 11/02/22 21:45 Chief Complaint: Left back pain, headache, high blood pressure Narrative: 42-year-old male with past medical history of obesity and asthma who presented to the ER 10/31/2022 and was found to be hypertensive emergency with blood pressures in the 180-220 systolic with diastolics in the 100-120 range. The patient was having a accompanying pain to the back of his left shoulder that would radiate down his arm. I had actually seen and examined the patient in excepted inferred admission. However the patient left the ER against medical advice after he received a dose of lisinopril of 20 mg. The patient's symptoms during that hospitalization resolved after he received IV hydralazine and IV labetalol and nitro paste. He denied headaches at that time but he returned to the hospital today he reported that he he had been having headaches the other day associated with her his left arm numbness and left posterior shoulder/back pain. He stated that the only reason he left the hospital the other day was because he had to complete a job he was contacted to do. He reports that there are no eliciting or relieving factors for his episodes of pain. He denies any nausea or vomiting or visual changes. He denies any associated chest pain. He has not been having any orthopnea or lower extremity swelling. He does have intermittent shortness of breath which he relates to his asthma. He was evaluated in the ER on August for shortness of breath and was given steroids and azithromycin for an asthma exacerbation. He reported symptoms improved for about 2 weeks but he has been having some intermittent symptoms recently. He ran out of his albuterol inhaler. He denies any cough or shortness of breath currently. He does not have any wheezing noted on exam. He does snore intermittently. He denies daytime fatigue or excessive daytime sleepiness. His stop Bang score is 4-5. Review of Systems Review of Systems: 12 systems were reviewed with pertinent positives and negatives per HPI. Except as documented in the HPI, all other systems were reviewed and are negative. [facility] Past Medical History Medical History (Updated 11/03/22 @ 04:41 by Odette Miranda DO) Asthma Essential hypertension, malignant Hepatic steatosis Kidney stones Left ureteral stone with hydronephrosis April 2021 Obesity BMI of 41.4 10/31/2022 Surgical History Surgical History History of tonsillectomy (~2018) Family History Family History Father , 68 Agent orange exposure Mother Asthma Meningitis Social History Social History (Updated 11/03/22 @ 04:36 by Odette Miranda DO) Social History: Patient lives with his of 21 years. They have 2 children ages 18 and 19 years old. He very rarely drinks alcohol and only small amounts. 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 Code status: Full code Surrogate decision maker: Smoking status: Never smoker Alcohol intake: current Drinks per week: 1 Alcohol use details: Rare use in small amounts Substance use: never Lack of Transportation: No Lack of Food: Never True Current Housing: I Have Housing Concerned About Future Housing: No Difficulty Paying Gas/Electric Bills: No Difficulty Paying for Meds: No Currently Unemployed: No Education: Trade/Vocational Certificate Difficulty w/ Childcare or Family Care: No Additional living arrangements comments: Gender identity (if verbalized by the patient): Male Sexual Orientation (if Verbalized by the Patient): Straight or Heterosexual Spiritual care concerns: No Meds Home Medications and Allergies Home Medications Medication Instructions Recorded Confirmed Type albuterol sulfate 90 mcg/actuation 1 inh inhalation PRN
[2022-11-03] VITALS (16 sets, daily range): BP systolic 132–170; BP diastolic 72–110; PULSE 65–105; RESP 12–18; TEMP 36.6–36.8; O2SAT 97–99
--- NOTE | 2022-11-03 | ECHO_ITS ---
Patient Info Name: Gerson Navarrete Age: 42 years : 1980 Gender: Male Ht: 70 in Wt: 288 lbs BSA: 2.60 m2 HR: 66 bpm BP: 132 / 72 mmHg Heart Rhythm: Sinus Rhythm Technical Quality: Good Exam Date: 11/03/2022 10:59 AM Exam Location: Echo Lab Patient Status: Inpatient Admit Date: 11/02/2022 Staff Ordering Physician: Odette Miranda DO Core Finisher: Lilian Vargas RDCS Attending Provider: Candida Kruse MD Referring Physician: Ruth BYRNE; Exam Type: CA echo dop color flow w con Study Info Indications - Uncontrolled hypertension Complete two-dimensional, color flow and Doppler transthoracic echocardiogram is performed with contrast to opacify the left ventricle and to improve the deliniation of the left ventricle endocardial borders. Contrast/Agitated Saline Contrast/Ag. Saline: Definity Amount: 3.00 ml Administered By: Lilian Vargas RDCS Existing IV Access: Yes IV Access Condition: patent with no signs of infiltration Summary 1. Left ventricular chamber dimension is moderately enlarged. 2. Definity contrast administered improved wall motion interpretation. 3. Left ventricular systolic function is moderately reduced, estimated at 35-40%. 4. There is moderately increased left ventricular wall thickness. 5. The left ventricular diastolic function is abnormal. 6. E/e' 16 is elevated. 7. Left atrial chamber dimension is moderately enlarged. 8. There is trace aortic valve regurgitation. 9. There is trace mitral valve regurgitation. 10. There is mild tricuspid valve regurgitation. 11. No pulmonary hypertension, estimated pulmonary arterial systolic pressure is 32 mmHg. Left Ventricle Definity contrast administered improved wall motion interpretation. E/e' 16 is elevated. Left ventricular chamber dimension is moderately enlarged. Left ventricular systolic function is moderately reduced, estimated at 35-40%. There is moderately increased left ventricular wall thickness. The left ventricular diastolic function is abnormal. Right Ventricle Right ventricular systolic function is normal and with normal TAPSE 2.4 cm. Right ventricular chamber dimension is normal. Left Atria Left atrial chamber dimension is moderately enlarged. Right Atria Right atrial chamber dimension is normal. Aortic Valve The aortic valve is trileaflet. There is no aortic valve stenosis. There is trace aortic valve regurgitation. Pulmonic Valve There is no pulmonic regurgitation. Mitral Valve There is no mitral valve stenosis. There is trace mitral valve regurgitation. Tricuspid Valve There is mild tricuspid valve regurgitation. No pulmonary hypertension, estimated pulmonary arterial systolic pressure is 32 mmHg. Pericardium/Pleural There is no pericardial effusion. Inferior Vena Cava Normal inferior vena cava with >50% collapse upon inspiration consistent with normal right atrial pressure, 5 mmHg. Aorta The aortic root size at the sinus of Valsalva is normal. Left Ventricular Outflow Tract Name Value Normal LVOT 2D LVOT Diameter 2.29 cm LVOT Doppler
[2022-11-03] MEDS: hydrALAZINE HCL 20 MG/ML VIAL 10 MG IV PUSH (01:38)
[2022-11-03] MEDS: cloNIDine HCL 0.1 MG TABLET PO (04:42)
--- NOTE | 2022-11-03 05:07 | ADMGEN ---
This patient, Gerson Navarrete, was admitted to IMU Room 209-01. Patient/family oriented to hospital policies and general routines including ID bracelet, bed and alarms, visiting hours, pain management, procedures, bathroom and other care routines, personal items, smoking policy, room service/diet, and visiting hours. Information on how to activate the Rapid Response Team has been discussed. Patient/Family are encouraged to report perceived risks to care and to ask questions if they do not understand what they are told or what they should do.
[2022-11-03] MEDS: ENOXAPARIN 40 MG/0.4 ML SYRINGE SUB-Q (08:14)
[2022-11-03] MEDS: lisinopriL 20 MG TABLET PO (08:14)
[2022-11-03] MEDS: hydroCHLOROthiazide 25 MG TABLET PO (08:14)
[2022-11-03 09:33] LABS: Alanine Aminotransferase 67 U/L (6-50); Albumin Level 4.1 g/dL (3.5-5.1); Alkaline Phosphatase 60 U/L (38-126); Anion Gap 6 mmol/L (8-16); Aspartate Amino Transferase 70 U/L (17-59); Bilirubin,Total 0.8 mg/dL (0.2-1.3); Blood Urea Nitrogen 13 mg/dL (9-20); Calcium 8.7 mg/dL (8.4-10.2); Carbon Dioxide 27 mmol/L (22-30); Chloride 100 mmol/L (98-107); Estimated CRCL calculation 104 ml/min; Estimated Glomerular Filt Rate > 60; Glucose 134 mg/dL (65-110); Potassium 3.5 mmol/L (3.4-5.0); Sodium 133 mmol/L (137-145)
[2022-11-03 10:25] LABS: Hepatitis B Surface Antigen Negative (Negative)
[2022-11-03 10:31] LABS: HAV RESULT Negative (Negative); Hepatitis B Core IgM Result Negative (Negative)
[2022-11-03 10:42] LABS: Hepatitis C Virus Antibody Negative (Negative)
[2022-11-03] MEDS: PERFLUTREN LIPID MICROSPHERES 1.5 ML VIAL DILUTED TO 10 ML TOTAL VOLUME IV PUSH (11:20)
--- NOTE | 2022-11-03 11:53 | IVDEFINITY ---
Prior to administration of IV Definity the patient was educated on the risks and benefits of the imaging enhancing agent including potential adverse side effects. The patient verbalized understanding. Allergies were verified. No exclusion criteria were identified and at least one of the following inclusion criteria were met: 1) physician request, 2) patient technically difficult to image (per the [place] [employer] guidelines of two or more segments not discernable within the apical view), or 3) questionable left ventricular function. ?
--- NOTE | 2022-11-03 17:15 | PM.IMPN ---
Progress Note: A&P Assessment and Plan (1) Essential hypertension, malignant: Code(s): I10 - Essential (primary) hypertension Status: Acute Assessment and Plan: Patient has malignant HTN/HTN emergency due to chronically uncontrolled HTN with symptoms of headache and back pain with elevated troponins. BP was 178/130 on admission. He was continued on lisinopril and hydrochlorothiazide that was started on October 31. He was also give 1 time dose of p.o. clonidine. UA clear. Echo shows EF 35-40% with diastolic dysfunction. Suspect this is related to uncontrolled HTN. Consider underlying ischemia. Will stop HCTZ and add Metorpolol. Try to avoid over-correction of BP. Cardiology consult. (2) Elevated troponin: Code(s): R77.8 - Other specified abnormalities of plasma proteins Status: Acute Assessment and Plan: Troponin peaked at 0.052. EKG reviewed showing NSR with sinus arrhythmia and nonspecific T wave changes. Suspect elevated Trop related to cardiac strain from the elevated BP. UDS negative on 10/31. As above (3) LV dysfunction: Code(s): I51.9 - Heart disease, unspecified Status: Acute Assessment and Plan: Echo showing EF 35-40%. Add metoprolol. Cardiology to see (4) Asthma: Code(s): J45.909 - Unspecified asthma, uncomplicated Status: Acute Assessment and Plan: Stable. Has Albuterol prn. No wheezing. Follow (5) Elevated LFTs: Code(s): R79.89 - Other specified abnormal findings of blood chemistry Status: Acute Assessment and Plan: AST/ALT mildly elevated (AST>ALT but no hx of alcohol abuse). Hepatitis panel negative. RUQ US normal. Probably related to transient hepatic congestion. Levels trending down. Subjective Date/time seen: 11/03/22 17:15 Interval history: 42yo male with asthma here for left arm and shoulder pain described as tightness and found to have HTN urgency. Symptoms resolved. No CP. Does not have a PCP. Feels better overall. Exam Narrative: AF 98.2 147/98 74 16 99% ra Gen - NARD Chest - CTA bilaterally, nml RR CV - RRR S1/S2. Tele showing no significant dysrhythmias Abd - Soft, obese, Positive BS Ext - No pedal edema Neuro - Alert and oriented. Nonfocal exam. Psych - Nml mood and affect Skin - Warm and dry Objective Data Vital Signs Vital Signs: Vital Signs - 24 hr 11/02/22 17:26 11/02/22 19:10 11/02/22 19:53 Temperature Pulse Rate 89 103 H 88 Respiratory Rate 16 18 25 H Blood Pressure 173/110 H 182/108 H 170/117 H Pulse Oximetry 98 99 97 11/02/22 21:05 11/02/22 22:12 11/02/22 22:38 Temperature 97.6 F Pulse Rate 79 82 82 Respiratory Rate 24 H 20 Blood Pressure 164/111 H 184/125 H Pulse Oximetry 95 97 11/02/22 22:30 11/03/22 00:00 11/03/22 01:40 Temperature Pulse Rate 83 87 Respiratory Rate Blood Pressure 170/110 H Pulse Oximetry 11/03/22 02:00 11/03/22 04:00 11/03/22 04:00 Temperature 97.9 F Pulse Rate 88 70 93 Respiratory Rate 18 Blood Pressure 132/72 Pulse Oximetry 97 11/03/22 06:00 11/03/22 08:00 11/03/22 08:00 Temperature 97.8 F 97.8 F Pulse Rate 66 72 72 Respiratory Rate 16 16 Blood Pressure 146/89 H 146/89 H Pulse Oximetry 99 99 11/03/22 08:00 11/03/22 09:56 11/03/22 12:00 Temperature 97.9 F Pulse Rate 65 77 77 Respiratory Rate 12 Blood Pressure 138/86 Pulse Oximetry 99 11/03/22 12:00 11/03/22 16:00 Temperature 97.9 F 98.2 F Pulse Rate 77 74 Respiratory Rate 12 16 Blood Pressure 138/86 147/98 H Pulse Oximetry 99 99 Intake/Output Intake/Output: Intake & Output 10/31/22 11/01/22 11/02/22 11/03/22 23:59 23:59 23:59 23:59 Intake Total 490 Balance 490 Meds/Results Medications: Active Medications Generic Name Dose Route Start Last Admin Trade Name Freq PRN Reason Stop Dose Admin Acetaminophen 650 mg 11/02/22 19:00 Acetaminophen 325 Mg Tablet PO
[2022-11-03] MEDS: METOPROLOL TARTRATE 25 MG TABLET PO (20:41)
[2022-11-04] VITALS (15 sets, daily range): BP systolic 121–161; BP diastolic 65–106; PULSE 60–89; RESP 16–20; TEMP 36.3–37.1; O2SAT 94–100
--- NOTE | 2022-11-04 | EST_ITS ---
Patient Info Name: Gerson Navarrete Age: 42 years : 1980 Gender: Male Ht: 70 in Wt: 275 lbs BSA: 2.54 m2 Exam Date: 11/04/2022 2:02 PM Exam Location: [facility] Stress Patient Status: Inpatient Admit Date: 11/02/2022 Staff Ordering Physician: Candis Arcos MD Attending Provider: Candida Kruse MD Exercise Technologist: Sonny Fernandez RDCS, RT Exercise Physician: Candis Arcos MD Exam Type: CA stress test treadmill w NM Study Info A nuclear stress test was performed. Summary 1. No abnormal ST/T wave changes diagnostic of ischemia with exercise. 2. Occasional PVCs. 3. Exercise capacity very good at >10 METS. 4. No chest discomfort with stress test. 5. Please correlate with nuclear medicine images, reported separately. Protocol: [facility] Stress ECG Details Stage: REST Duration (min): 1 min : 11 sec Speed (mph): 0.0 Grade (%): 0 HR (bpm): 74 SBP (mmHg): 142 DBP (mmHg): 112 METS: --- Stage: REST Duration (min): 3 min : 28 sec Speed (mph): 0.0 Grade (%): 0 HR (bpm): 77 SBP (mmHg): 142 DBP (mmHg): 112 METS: --- Stage: STAGE 1 Duration (min): 1 min : 0 sec Speed (mph): 1.7 Grade (%): 10 HR (bpm): 107 SBP (mmHg): 142 DBP (mmHg): 112 METS: --- Stage: STAGE 1 Duration (min): 2 min : 0 sec Speed (mph): 1.7 Grade (%): 10 HR (bpm): 122 SBP (mmHg): 142 DBP (mmHg): 112 METS: --- Stage: STAGE 1 Duration (min): 3 min : 0 sec Speed (mph): 1.7 Grade (%): 10 HR (bpm): 124 SBP (mmHg): 187 DBP (mmHg): 119 METS: --- Stage: STAGE 2 Duration (min): 1 min : 0 sec Speed (mph): 2.5 Grade (%): 12 HR (bpm): 132 SBP (mmHg): 187 DBP (mmHg): 119 METS: --- Stage: STAGE 2 Duration (min): 2 min : 0 sec Speed (mph): 2.5 Grade (%): 12 HR (bpm): 138 SBP (mmHg): 185 DBP (mmHg): 98 METS: --- Stage: STAGE 2 Duration (min): 3 min : 0 sec Speed (mph): 2.5 Grade (%): 12 HR (bpm): 143 SBP (mmHg): 185 DBP (mmHg): 98 METS: --- Stage: STAGE 3 Duration (min): 1 min : 0 sec Speed (mph): 3.4 Grade (%): 14 HR (bpm): 156 SBP (mmHg): 191 DBP (mmHg): 110 METS: --- Stage: STAGE 3 Duration (min): 1 min : 50 sec Speed (mph): 3.4 Grade (%): 14 HR (bpm): 157 SBP (mmHg): 191 DBP (mmHg): 110 METS: --- Stage: RECOVERY Duration (min): 0 min : 9 sec Speed (mph): 1.5 Grade (%): 0 HR (bpm): 158 SBP (mmHg): 191 DBP (mmHg): 110 METS: --- Stage: RECOVERY Duration (min): 1 min : 9 sec Speed (mph): 0.0 Grade (%): 0 HR (bpm): 130 SBP (mmHg): 191 DBP (mmHg): 110 METS: --- Stage: RECOVERY Duration (min): 2 min : 9 sec Speed (mph): 0.0 Grade (%): 0 HR (bpm): 113 SBP (mmHg): 191 DBP (mmHg): 110 METS: ---
[2022-11-04] MEDS: lisinopriL 10 MG TABLET PO (08:58)
[2022-11-04] MEDS: METOPROLOL TARTRATE 25 MG TABLET PO (08:58)
--- NOTE | 2022-11-04 11:37 | PM.CNCAR ---
Assessment and Plan Assessment and plan (1) LV dysfunction: Code(s): I51.9 - Heart disease, unspecified Status: Acute (2) Essential hypertension, malignant: Code(s): I10 - Essential (primary) hypertension Status: Acute (3) Hypertensive urgency: Code(s): I16.0 - Hypertensive urgency Status: Acute (4) Elevated troponin: Code(s): R77.8 - Other specified abnormalities of plasma proteins Status: Acute Plan His LV dysfunction may most likely be due to uncontrolled chronic HTN, however, an ischemic evaluation is still warranted to rule out underlying obstructive coronary artery disease. I discussed with the patient that the gold standard for evaluating for coronary artery disease is with a coronary angiography, however, patient would like to avoid invasive testing at this time and he prefers non-invasive testing. Will obtain an MPI. Discussed with patient that if MPI shows abnormality concerning for obstructive CAD, then a cardiac cath would be recommended, and he agrees to undergo cath at that point. Also discussed with the patient that if his MPI is normal, and his LVEF does not improve with GDMT in the near future as an outpatient, then we would recommend cardiac cath to still definitely rule out obstructive CAD, and he agrees with that. Patient already started on Lisinopril. Continue Lisinopril for now. Will need to be uptitrated or switched to Entresto. Switching from Entresto to Lisinopril requires a 36-hour washout period, so if patient is not gonna be in the hospital for that long, then we can switch to Entresto as an outpatient. Patient already started on Metoprolol tartrate. Will switch his Metoprolol to Coreg. Will start Aldactone and Jardiance as well. We will have patient follow-up with us in our clinic. History of Present Illness History of Present Illness Consult date/time: 11/04/22 11:37 Requesting physician: Eulogio Caal MD Consult reason: hypertension, congestive heart failure and Other (Elevated troponin) Reason For Visit: hypertensive emergency Narrative: This is a pleasant 42-year-old male with a history of asthma and obesity who presented initially to the ER on 10/31 and was found to be in hypertensive emergency with SBP as high as 200s. Patient reports that he was driving when he got back pain that radiated to left arm. No chest pain. Patient states that the ER was really busy that night and he had to go to work, so he had to leave the ER. Patient's symptoms at that time had resolved with BP control. Patient returned on 11/02 with the same symptoms along with a headache. His blood pressure this time noted to be as high as 180s/120s. He is being treated for hypertensive urgency. Troponins were checked on admission and were mildly elevated, however, flat. TTE done this admission shows LVEF 35-40%, moderately increased LV wall thickness. moderately enlarged left atrial chamber. Therefore, Cardiology consulted. Patient denies any chest pain, shortness of breath, lightheadedness/dizziness, palpitations to me. He states he does not take any medications at home for his blood pressure. Review of Systems Review of Systems: 12-point ROS obtained. Negative, unless stated in HPI. [facility] Past Medical History Medical History Asthma Essential hypertension, malignant Hepatic steatosis Kidney stones Left ureteral stone with hydronephrosis April 2021 Obesity BMI of 41.4 10/31/2022 Surgical History Surgical History History of tonsillectomy (~2018) Family History Family History Father , 68 Agent orange exposure Mother Asthma Meningitis Social History Social History Social History: Patient lives with his of 21 years. They have 2 children ages 18 a
[2022-11-04] MEDS: SPIRONOLACTONE 25 MG TABLET PO (17:30)
[2022-11-04] MEDS: ENOXAPARIN 40 MG/0.4 ML SYRINGE SUB-Q (17:30)
[2022-11-04] MEDS: EMPAGLIFLOZIN 10 MG TABLET PO (17:32)
--- NOTE | 2022-11-04 19:41 | PM.IMPN ---
Progress Note: A&P Assessment and Plan (1) Essential hypertension, malignant: Code(s): I10 - Essential (primary) hypertension Status: Acute Assessment and Plan: Patient has malignant HTN/HTN emergency due to chronically uncontrolled HTN with symptoms of headache and back pain with elevated troponins. BP was 178/130 on admission. He was continued on lisinopril and hydrochlorothiazide that was started on October 31. He was also give 1 time dose of p.o. clonidine. UA clear. Echo shows EF 35-40% with diastolic dysfunction. Suspect this is related to uncontrolled HTN. Consider underlying ischemia. Cardiology consulted and medications changed. (2) Elevated troponin: Code(s): R77.8 - Other specified abnormalities of plasma proteins Status: Acute Assessment and Plan: Troponin peaked at 0.052. EKG reviewed showing NSR with sinus arrhythmia and nonspecific T wave changes. Suspect elevated Trop related to cardiac strain from the elevated BP. UDS negative on 10/31. He had Lexiscan stress test today. EKG protion showing no acute ST/T wave changes. Nuclear images pending. (3) LV dysfunction: Code(s): I51.9 - Heart disease, unspecified Status: Acute Assessment and Plan: Echo showing EF 35-40%. Medications adjusted and now on Coreg, Lisinopril, Empag and Spirono. Patient states he has good insurance and feels he will be able to afford these medications. (4) Asthma: Code(s): J45.909 - Unspecified asthma, uncomplicated Status: Acute Assessment and Plan: Stable. Has Albuterol prn. No wheezing. Follow (5) Elevated LFTs: Code(s): R79.89 - Other specified abnormal findings of blood chemistry Status: Acute Assessment and Plan: AST/ALT mildly elevated (AST>ALT but no hx of alcohol abuse). Hepatitis panel negative. RUQ US normal. Probably related to transient hepatic congestion. Levels trending down. Subjective Date/time seen: 11/04/22 19:41 Interval history: 42yo male with asthma here for left arm and shoulder pain described as tightness and found to have HTN urgency. No problems overnight. No CP or SOB. No n/v. No wheezing. Exam Narrative: AF 97.3 161/106 71 18 98% ra Gen - NARD Chest - CTA bilaterally, nml RR CV - RRR S1/S2 Abd - Soft, obese, Positive BS Ext - No pedal edema Neuro - Alert and oriented. Nonfocal exam. Psych - Nml mood and affect Skin - Warm and dry Objective Data Vital Signs Vital Signs: Vital Signs - 24 hr 11/03/22 20:00 11/03/22 20:41 11/03/22 20:00 Temperature 98.0 F Pulse Rate 96 105 H 104 H Respiratory Rate 18 Blood Pressure 154/101 H Pulse Oximetry 98 Oxygen Delivery 11/03/22 20:00 11/03/22 22:00 11/03/22 23:08 Temperature Pulse Rate 104 H 89 Respiratory Rate 18 Blood Pressure Pulse Oximetry 98 98 Oxygen Delivery Room Air Room Air 11/03/22 23:53 11/04/22 00:00 11/04/22 00:00 Temperature 98.0 F Pulse Rate 72 86 86 Respiratory Rate 18 18 Blood Pressure 153/108 H Pulse Oximetry 98 98 Oxygen Delivery Room Air 11/04/22 02:00 11/04/22 04:00 11/04/22 04:00 Temperature Pulse Rate 60 62 62 Respiratory Rate 18 Blood Pressure Pulse Oximetry 98 Oxygen Delivery Room Air 11/04/22 04:00 11/04/22 06:00 11/04/22 08:00 Temperature 98.3 F 97.5 F L Pulse Rate 69 66 66 Respiratory Rate 20 16 Blood Pressure 144/90 H 140/101 H Pulse Oximetry 97 96 Oxygen Delivery 11/04/22 08:58 11/04/22 08:00 11/04/22 08:00 Temperature Pulse Rate 64 62 Respiratory Rate Blood Pressure Pulse Oximetry Oxygen Delivery Room Air 11/04/22 10:00 11/04/22 12:00 11/04/22 12:00 Temperature 97.3 F L Pulse Rate 70 80 Respiratory Rate 18 Blood Pressure 147/105 H Pulse Oximetry 94 Oxygen Delivery Room Air 11/04/22 12:00 11/04/22 16:00 11/04/22 16:00 Temperature 97.3 F L Pulse Rate 71 80 72 Respirato
[2022-11-04] MEDS: carvediloL 12.5 MG TABLET PO (21:01)
[2022-11-05] VITALS (17 sets, daily range): BP systolic 126–151; BP diastolic 71–102; PULSE 66–82; RESP 16–20; TEMP 36–37.1; O2SAT 97–100
[2022-11-05] MEDS: carvediloL 12.5 MG TABLET PO ×2 (08:06→20:36)
[2022-11-05] MEDS: EMPAGLIFLOZIN 10 MG TABLET PO (08:06)
[2022-11-05] MEDS: SPIRONOLACTONE 25 MG TABLET PO (08:07)
[2022-11-05] MEDS: lisinopriL 10 MG TABLET PO (08:07)
[2022-11-05] MEDS: ENOXAPARIN 40 MG/0.4 ML SYRINGE SUB-Q (08:11)
--- NOTE | 2022-11-05 10:20 | PM.PNCARD ---
Progress Note: A&P Assessment and Plan (1) LV dysfunction: Code(s): I51.9 - Heart disease, unspecified Status: Acute Assessment and Plan: New diagnosis cardiomyopathy with EF 35 - 40%, read as 23% on MPI yesterday. Secondary to longstanding hypertension and ? obstructive CAD. Has been started on GDMT with lisinopril, coreg, jardiance, and spironolactone. Will probably shift him to [facility] as outpatient. I discussed the concept of a LifeVest with him and he is agreeable to wearing a LifeVest. Will place order. [facility] tomorrow. (2) Essential hypertension, malignant: Code(s): I10 - Essential (primary) hypertension Status: Acute Assessment and Plan: BP is reasonably controlled (3) Hypertensive urgency: Code(s): I16.0 - Hypertensive urgency Status: Acute (4) Elevated troponin: Code(s): R77.8 - Other specified abnormalities of plasma proteins Status: Acute Assessment and Plan: Small, moderate severity fixed defect seen on MPI yesterday. Plan to undergo coronary angiogram tomorrow. Started on ASA, statin. Subjective Date/time seen: 11/05/22 10:20 Cardiology follow up for CAD He's feeling well this morning. No shortness of breath, chest pain, palpitations, edema. Eager to go home. Review of Systems Review of Systems: All systems reviewed & are unremarkable except as noted in HPI and below Exam Const: General: comfortable and no acute distress HENMT: Mouth: Yes moist mucous membranes Eyes: General: appearance normal, both eyes and all related structures Sclera: sclerae normal Neck: Neck: supple Resp: Effort & Inspection: normal respiratory effort Auscultation: clear to auscultation bilaterally Cardio: Rate: regular rate Rhythm: regular rhythm Heart sounds: no murmurs Skin: General skin exam: normal color Neuro: Speech: normal speech Motor exam (neuro): 5/5 motor strength present throughout Extrem: General: normal to inspection Psych: Mental Status: mental status grossly normal Affect: normal affect Objective Data Vital Signs Vital Signs: Vital Signs - 24 hr 11/04/22 12:00 11/04/22 12:00 11/04/22 12:00 Temperature 36.3 C L Pulse Rate 80 71 Respiratory Rate 18 Blood Pressure 147/105 H Pulse Oximetry 94 Oxygen Delivery Room Air 11/04/22 16:00 11/04/22 16:00 11/04/22 16:00 Temperature 36.3 C L Pulse Rate 80 72 Respiratory Rate 18 Blood Pressure 161/106 H Pulse Oximetry 98 Oxygen Delivery Room Air 11/04/22 17:55 11/04/22 20:10 11/04/22 20:00 Temperature 37.1 C Pulse Rate 71 89 64 Respiratory Rate 20 20 Blood Pressure 140/102 H Pulse Oximetry 100 100 Oxygen Delivery Room Air 11/04/22 21:01 11/04/22 20:00 11/04/22 22:00 Temperature Pulse Rate 64 87 81 Respiratory Rate Blood Pressure Pulse Oximetry Oxygen Delivery 11/04/22 23:50 11/05/22 00:00 11/05/22 00:00 Temperature 37.0 C Pulse Rate 64 70 70 Respiratory Rate 20 20 Blood Pressure 121/65 Pulse Oximetry 100 100 Oxygen Delivery Room Air 11/05/22 02:00 11/05/22 04:00 11/05/22 04:00 Temperature Pulse Rate 71 72 72 Respiratory Rate 20 Blood Pressure Pulse Oximetry 100 Oxygen Delivery Room Air 11/05/22 05:08 11/05/22 06:00 11/05/22 08:06 Temperature 37.0 C Pulse Rate 66 70 71 Respiratory Rate 20 Blood Pressure 126/71 Pulse Oximetry 100 Oxygen Delivery 11/05/22 08:00 Temperature 36.0 C L Pulse Rate 70 Respiratory Rate 16 Blood Pressure 139/92 H Pulse Oximetry 97 Oxygen Delivery Intake/Output Intake/Output: Intake & Output 11/02/22 11/03/22 11/04/22 11/05/22 23:59 23:59 23:59 23:59 Intake Total 1240 1420 500 Output Total 1200 650 Balance 1240 220 -150 Meds/Results Medications: Active Medications Generic Name Dose Route Start Last Admin Trade Name Freq PRN Reason Stop Dose Admin Acetaminophen 650 mg 11/02/22 19:00
[2022-11-05] MEDS: ATORVASTATIN 40 MG TABLET PO (11:04)
[2022-11-05] MEDS: ASPIRIN 81 MG ENTERIC TABLET PO (11:04)
--- NOTE | 2022-11-05 12:06 | PM.IMPN ---
Progress Note: A&P Assessment and Plan (1) Essential hypertension, malignant: Code(s): I10 - Essential (primary) hypertension Status: Acute Assessment and Plan: Patient has malignant HTN/HTN emergency due to chronically uncontrolled HTN with symptoms of headache and back pain with elevated troponins. BP was 178/130 on admission. He was continued on lisinopril and hydrochlorothiazide that was started on October 31. He was also give 1 time dose of p.o. clonidine. UA clear. Echo shows EF 35-40% with diastolic dysfunction. Suspect this is related to uncontrolled HTN but Lexiscan stress test showing infarct involving left ventricle apex and apical inferior segment. Consider underlying ischemia. Cardiology consulted and medications changed. Plans for [facility] tomorrow. (2) Elevated troponin: Code(s): R77.8 - Other specified abnormalities of plasma proteins Status: Acute Assessment and Plan: Troponin peaked at 0.052. EKG reviewed showing NSR with sinus arrhythmia and nonspecific T wave changes. Suspect elevated Trop related to cardiac strain from the elevated BP. UDS negative on 10/31. He had Lexiscan stress test. EKG portion showing no acute ST/T wave changes. Nuclear images as mentioned above. Continue Coreg; ASA and Lipitor added. Appreciate Cardiology input. (3) LV dysfunction: Code(s): I51.9 - Heart disease, unspecified Status: Acute Assessment and Plan: Echo showing EF 35-40%. Medications adjusted and now on Coreg, Lisinopril, Empag and Spirono. EF 23% by stress test. May need LifeVest but will await [facility] results. (4) Asthma: Code(s): J45.909 - Unspecified asthma, uncomplicated Status: Acute Assessment and Plan: Stable. Has Albuterol prn. No wheezing. Follow (5) Elevated LFTs: Code(s): R79.89 - Other specified abnormal findings of blood chemistry Status: Acute Assessment and Plan: AST/ALT mildly elevated (AST>ALT but no hx of alcohol abuse). Hepatitis panel negative. RUQ US normal. Probably related to transient hepatic congestion. Levels trending down. Subjective Date/time seen: 11/05/22 12:06 Interval history: 42yo male with asthma here for left arm and shoulder pain described as tightness and found to have HTN urgency. No issues overnight. No SOB. Did have sharp chest pain lasting 2-3 minutes right mid chest radiated to the back. No pleuritic, palpable or positional. Exam Narrative: AF 96.8 139/92 82 16 97% ra Gen - NARD Chest - CTA bilaterally, nml RR CV - RRR S1/S2. Tele showing no significant dysrhythmias Abd - Soft, obese, Positive BS Ext - No pedal edema Neuro - Alert and oriented. Nonfocal exam. Psych - Nml mood and affect Skin - Warm and dry Objective Data Vital Signs Vital Signs: Vital Signs - 24 hr 11/04/22 16:00 11/04/22 16:00 11/04/22 16:00 Temperature 97.3 F L Pulse Rate 80 72 Respiratory Rate 18 Blood Pressure 161/106 H Pulse Oximetry 98 Oxygen Delivery Room Air 11/04/22 17:55 11/04/22 20:10 11/04/22 20:00 Temperature 98.7 F Pulse Rate 71 89 64 Respiratory Rate 20 20 Blood Pressure 140/102 H Pulse Oximetry 100 100 Oxygen Delivery Room Air 11/04/22 21:01 11/04/22 20:00 11/04/22 22:00 Temperature Pulse Rate 64 87 81 Respiratory Rate Blood Pressure Pulse Oximetry Oxygen Delivery 11/04/22 23:50 11/05/22 00:00 11/05/22 00:00 Temperature 98.6 F Pulse Rate 64 70 70 Respiratory Rate 20 20 Blood Pressure 121/65 Pulse Oximetry 100 100 Oxygen Delivery Room Air 11/05/22 02:00 11/05/22 04:00 11/05/22 04:00 Temperature Pulse Rate 71 72 72 Respiratory Rate 20 Blood Pressure Pulse Oximetry 100 Oxygen Delivery Room Air 11/05/22 05:08 11/05/22 06:00 11/05/22 08:06 Temperature 98.6 F Pulse Rate 66 70 71 Respiratory Rate 20 Blood Pressure 126/71 Pulse Oximetry 100 Oxygen Delivery
[2022-11-06] VITALS (9 sets, daily range): BP systolic 135–158; BP diastolic 90–99; PULSE 59–84; RESP 14–20; TEMP 36.2–36.9; O2SAT 98–100
[2022-11-06 05:19] LABS: Prothrombin Time 13.2 Seconds (11.1-14.7)
[2022-11-06 05:20] LABS: Partial Thromboplastin Time 32.4 SECONDS (22.3-36.8)
[2022-11-06 05:21] LABS: Alanine Aminotransferase 50 U/L (6-50); Albumin Level 3.9 g/dL (3.5-5.1); Alkaline Phosphatase 71 U/L (38-126); Anion Gap 4 mmol/L (8-16); Aspartate Amino Transferase 48 U/L (17-59); Bilirubin,Total 0.5 mg/dL (0.2-1.3); Blood Urea Nitrogen 18 mg/dL (9-20); Calcium 8.7 mg/dL (8.4-10.2); Carbon Dioxide 29 mmol/L (22-30); Chloride 101 mmol/L (98-107); Estimated CRCL calculation 89 ml/min; Estimated Glomerular Filt Rate > 60; Glucose 88 mg/dL (65-110); Magnesium 2.1 mg/dL (1.6-2.3); Potassium 3.8 mmol/L (3.4-5.0); Sodium 134 mmol/L (137-145)
[2022-11-06] MEDS: SPIRONOLACTONE 25 MG TABLET PO (08:52)
[2022-11-06] MEDS: lisinopriL 10 MG TABLET PO (08:52)
[2022-11-06] MEDS: carvediloL 12.5 MG TABLET PO (08:52)
[2022-11-06] MEDS: ASPIRIN 81 MG ENTERIC TABLET PO (08:52)
--- NOTE | 2022-11-06 10:57 | PM.PNCARD ---
Progress Note: A&P Assessment and Plan (1) LV dysfunction: Code(s): I51.9 - Heart disease, unspecified Status: Acute Assessment and Plan: New diagnosis cardiomyopathy with EF 35 - 40%, read as 23% on MPI yesterday. Secondary to longstanding hypertension and ? obstructive CAD. Has been started on GDMT with lisinopril, coreg, jardiance, and spironolactone. Will probably shift him to [facility] as outpatient. I discussed the concept of a LifeVest with him and he is agreeable to wearing a LifeVest. Awaiting LifeVest fitting. He is refusing coronary angiogram at this time because he is not willing to risk the potential risks of the procedure and also states he cannot have a lifting restriction for any period of time because of the financial burden of not being able to work for . He understands the risks/implications of deferring cath for now. He is still agreeable to LifeVest. Will arrange short interval follow up with Dr. Arcos. (2) Essential hypertension, malignant: Code(s): I10 - Essential (primary) hypertension Status: Acute Assessment and Plan: BP is reasonably controlled (3) Hypertensive urgency: Code(s): I16.0 - Hypertensive urgency Status: Acute (4) Elevated troponin: Code(s): R77.8 - Other specified abnormalities of plasma proteins Status: Acute Assessment and Plan: Small, moderate severity fixed defect seen on MPI yesterday. As above, refusing angiogram. Continue ASA, statin. Subjective Date/time seen: 11/06/22 10:57 Cardiology follow up for cardiomyopathy Interval history: No acute events overnight. Remains stable this morning. Has concerns about his scheduled angiogram and wishes to cancel the procedure today and be discharged. Review of Systems Review of Systems: All systems reviewed & are unremarkable except as noted in HPI and below Exam Const: General: comfortable and no acute distress HENMT: Mouth: Yes moist mucous membranes Eyes: General: appearance normal, both eyes and all related structures Sclera: sclerae normal Neck: Neck: supple Resp: Effort & Inspection: normal respiratory effort Auscultation: clear to auscultation bilaterally Cardio: Rate: regular rate Rhythm: regular rhythm Heart sounds: no murmurs Skin: General skin exam: normal color Neuro: Speech: normal speech Motor exam (neuro): 5/5 motor strength present throughout Extrem: General: normal to inspection Psych: Mental Status: mental status grossly normal Affect: normal affect Objective Data Vital Signs Vital Signs: Vital Signs - 24 hr 11/05/22 12:00 11/05/22 12:00 11/05/22 14:00 Temperature 36.6 C Pulse Rate 72 77 75 Respiratory Rate 18 Blood Pressure 143/92 H Pulse Oximetry 98 Oxygen Delivery 11/05/22 16:00 11/05/22 16:00 11/05/22 18:00 Temperature 36.5 C Pulse Rate 71 67 70 Respiratory Rate 18 Blood Pressure 144/98 H Pulse Oximetry 99 Oxygen Delivery 11/05/22 20:00 11/05/22 20:36 11/05/22 20:42 Temperature 37.1 C Pulse Rate 75 75 74 Respiratory Rate 18 20 Blood Pressure 144/98 H Pulse Oximetry 99 100 Oxygen Delivery Room Air 11/05/22 20:00 11/05/22 23:58 11/05/22 22:00 Temperature 36.9 C Pulse Rate 75 74 70 Respiratory Rate 20 Blood Pressure 151/102 H Pulse Oximetry 100 Oxygen Delivery 11/06/22 00:00 11/06/22 00:00 11/06/22 02:00 Temperature Pulse Rate 73 73 63 Respiratory Rate 20 Blood Pressure Pulse Oximetry 100 Oxygen Delivery Room Air 11/06/22 04:00 11/06/22 04:00 11/06/22 05:29 Temperature 36.9 C Pulse Rate 59 L 59 L 60 Respiratory Rate 20 20 Blood Pressure 146/97 H Pulse Oximetry 100 100 Oxygen Delivery Room Air 11/06/22 06:00 11/06/22 08:00 11/06/22 08:00 Temperature 36.2 C L Pulse Rate 59 L 60 64 Respiratory Rate 20 Blood Pressure 135/90 Pulse Oximetry 98 Oxygen Delivery 11/06/22 08:52
[2022-11-06] MEDS: EMPAGLIFLOZIN 10 MG TABLET PO (15:22)
[2022-11-06] MEDS: ATORVASTATIN 40 MG TABLET PO (15:22)
--- NOTE | 2022-11-06 22:34 | PM.DS ---
DS: Admitting Diagnosis Discharge Date 11/06/22 Admitting Diagnosis (1) Essential hypertension, malignant: (2) Elevated troponin: (3) Asthma: DS: Discharge Diagnosis Discharge Diagnosis Plan (1) Essential hypertension, with hypertensive urgency (2) Elevated troponin: (3) Asthma: (4) LV dysfunction: (5) Elevated troponin: ? ? ? DS: Summary Hospital Course Reason for hospitalization: Left back pain, headache, high blood pressure Hospital Course: 42-year-old male with past medical history of obesity and asthma who presented to the ER 10/31/2022 and was found to be hypertensive emergency with blood pressures in the 180-220 systolic with diastolics in the 100-120 range.? The patient was having a accompanying pain to the back of his left shoulder that would radiate down his arm.? I had actually seen and examined the patient in excepted inferred admission.? However the patient left the ER against medical advice after he received a dose of lisinopril of 20 mg.? The patient's symptoms during that hospitalization resolved after he received IV hydralazine and IV labetalol and nitro paste.? He denied headaches at that time but he returned to the hospital today he reported that he he had been having headaches the other day associated with her his left arm numbness and left posterior shoulder/back pain.? He stated that the only reason he left the hospital the other day was because he had to complete a job he was contacted to do.? He reports that there are no eliciting or relieving factors for his episodes of pain.? He denies any nausea or vomiting or visual changes.? He denies any associated chest pain.? He has not been having any orthopnea or lower extremity swelling.? He does have intermittent shortness of breath which he relates to his asthma. He was evaluated in the ER on August for shortness of breath and was given steroids and azithromycin for an asthma exacerbation.? He reported symptoms improved for about 2 weeks but he has been having some intermittent symptoms recently.? He ran out of his albuterol inhaler.? He denies any cough or shortness of breath currently.? He does not have any wheezing noted on exam.? He does snore intermittently.? He denies daytime fatigue or excessive daytime sleepiness.? (1) LV dysfunction: ?Code(s): I51.9 - Heart disease, unspecified ?Status:?Acute ?Assessment and Plan: New diagnosis cardiomyopathy with EF 35 - 40%, read as 23% on MPI yesterday.? Secondary to longstanding hypertension and ? obstructive CAD.? Has been started on GDMT with lisinopril, coreg, jardiance, and spironolactone.? [facility].? I discussed the concept of a LifeVest with him and he is agreeable to wearing a LifeVest.? Awaiting LifeVest fitting.? He is refusing coronary angiogram at this time because he is not willing to risk the potential risks of the procedure and also states he cannot have a lifting restriction for any period of time because of the financial burden of not being able to work for days.? He understands the risks/implications of deferring cath for now.? He is still agreeable to LifeVest.? Will arrange short interval follow up with Dr. Arcos.? (2) Essential hypertension, malignant: ?Code(s): I10 - Essential (primary) hypertension ?Status:?Acute ?Assessment and Plan: BP is reasonably controlled (3) Hypertensive urgency: ?Code(s): I16.0 - Hypertensive urgency ?Status:?Acute (4) Elevated troponin: ?Code(s): R77.8 - Other specified abnormalities of plasma proteins ?Status:?Acute ?Assessment and Plan: Small, moderate severity fixed defect seen on MPI yesterday.? As above, refusing angiogram.? Continue ASA, statin. Status at Discharge Cognitive/behavioral status at discharge: At baseline Functional status at discharge: independent ambulation Overall status at discharge: patient is back to baseline Time Spent with Patient Time attestation
== END 2022-11-06 16:30 | disposition home or self-care (01) | DRG 199 ==
LOC: ANHED 16:22 → ANHTRC 21:27 → ANHIMU 21:27
PROVIDERS: Emergency Medicine; Internal Medicine; Admitting Provider Family Medicine; Emergency Provider Emergency Medicine; PCP Internal Medicine; Visit Provider Internal Medicine
DX: I16.1 Hypertensive emergency (principal); I42.9 Cardiomyopathy, unspecified; I11.9 Hypertensive heart disease without heart failure; R77.8 Other specified abnormalities of plasma proteins; J45.909 Unspecified asthma, uncomplicated; R79.89 Other specified abnormal findings of blood chemistry; Z20.822 Contact with and (suspected) exposure to COVID-19; Z79.51 Long term (current) use of inhaled steroids; Z88.1 Allergy status to other antibiotic agents
CPT/HCPCS: 36415; 71046; 76705; 78452; 80053; 80074; 83690; 83735; 84484; 85025; 85610; 85730; 87636; 93005; 93017; 94762; 96372; 96374; 96375; 96376; 99285; A9270; A9502; C8929; G0378; G0379; J0360; J1644; J1650; J7040; Q9957

== ENCOUNTER 2022-11-15 20:48 | Emergency (ER) | payer BC, SELFPAY ==
[2022-11-15 20:53] VITALS: BP 156/99; PULSE 82; RESP 16; TEMP 36.3; O2SAT 100
--- NOTE | 2022-11-15 20:59 | ECG_ITS ---
Measurements Intervals [place] Rate: 58 P: 37 DC: 152 QRS: 47 QRSD: 100 T: -83 QT: 414 QTc: 409 Interpretive Statements SINUS BRADYCARDIA LEFT VENTRICULAR HYPERTROPHY AND ST-T CHANGE ABNORMAL ECG COMPARED TO ECG 11/02/2022 14:50:14 HEART RATE HAS DECREASED LEFT VENTRICULAR HYPERTROPHY NOW PRESENT ST (T WAVE) DEVIATION NOW PRESENT Electronically Signed On 11-16-2022 16:46:56 NET DEVELOPER CONSULTANT by Vikram Cross M.D.
--- NOTE | 2022-11-15 21:28 | ED.GENADULT ---
HPI - General Adult General Chief complaint: Unspecified Stated complaint: heart issues Time Seen by Provider: 11/15/22 21:04 History of Present Illness HPI narrative: 42-year-old male with recent diagnosis of hypertension and LV dysfunction with a LifeVest in place presents to the emergency department for evaluation of complaint of bilateral hand and feet tingling that lasted approximately 20 minutes. Patient states when he woke up he had these sensations. Patient states he had no associated weakness with this. Patient states that after he took his medications that his symptoms quickly resolved. Patient states he has not had a recurrence of the symptoms. Patient states he has been compliant with his blood pressure medications and patient reports he does have follow-up with cardiology in November. Related Data Home Medications Medication Instructions Recorded Confirmed albuterol sulfate 90 mcg/actuation 1 inh inhalation PRN PRN Shortness 11/02/22 11/02/22 aerosol inhaler Of Breath Or Wheezing Allergies Allergy/AdvReac Type Severity Reaction Status Date / Time amoxicillin [From Augmentin] Allergy Unknown Verified 11/03/22 06:09 clavulanic acid Allergy Unknown Verified 11/03/22 06:09 [From Augmentin] AMOXICILLIN TRIHYDRATE Allergy Mild Unknown Uncoded 01/16/22 23:34 POTASSIUM CLAVULANATE Allergy Mild Unknown Uncoded 01/16/22 23:34 Review of Systems Review of Systems: CONSTITUTIONAL: Denies fever, chills, or sweats. EYES: Denies visual changes, redness, or discharge. ENT: Denies rhinorrhea, congestion, sore throat, or otalgia. CARDIOVASCULAR: Denies chest pain, palpitations, or edema. RESPIRATORY: Denies cough or dyspnea. GASTROINTESTINAL: Denies abdominal pain, nausea, vomiting, or diarrhea. GENITOURINARY: Denies dysuria or hematuria. SKIN: Denies rash or itching. MUSCULOSKELETAL: Denies back pain, joint pain, or myalgia. NEUROLOGIC: Denies any headache or weakness, see HPI PSYCHIATRIC: Does report having some anxiety related to his recent health issues PMFSH Past Medical History Medical History Asthma Essential hypertension, malignant Hepatic steatosis Kidney stones Left ureteral stone with hydronephrosis April 2021 Obesity BMI of 41.4 10/31/2022 Surgical History Surgical History History of tonsillectomy (~2018) Family History Family History Father , 68 Agent orange exposure Mother Asthma Meningitis Social History Social History Social History: Patient lives with his of 21 years. They have 2 children ages 18 and 19 years old. He very rarely drinks alcohol and only small amounts. 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 Code status: Full code Surrogate decision maker: Smoking status: Never smoker Alcohol intake: current Drinks per week: 1 Alcohol use details: Rare use in small amounts Substance use: never Lack of Transportation: No Lack of Food: Never True Current Housing: I Have Housing Concerned About Future Housing: No Difficulty Paying Gas/Electric Bills: No Difficulty Paying for Meds: No Currently Unemployed: No Education: Trade/Vocational Certificate Difficulty w/ Childcare or Family Care: No Additional living arrangements comments: Gender identity (if verbalized by the patient): Male Sexual Orientation (if Verbalized by the Patient): Straight or Heterosexual Spiritual care concerns: No Exam Narrative: APPEARANCE: Well appearing, no pain, no distress, well-nourished. HEAD: normocephalic, atraumatic. EYES: PERRLA/EOMI, conjunctivae clear. NOSE: Normal no drainage EARS:TMS clear with good light reflex. THROAT: Pharynx clear, no exudate. NECK: Supple. No adenopathy, no mass
[2022-11-15 21:35] LABS: Basophils Percent Auto 0.3 % (0.2-1.2); Eosinophils Absolute Auto 0.3 K/mm3 (0-0.3); Eosinophils Percent Auto 3.3 % (0-4.4); Hematocrit 43.4 % (42.0-52.0); Hemoglobin 14.8 g/dL (14.0-18.0); Immature Granulocyte Absolute 0.02 K/mm3 (0.00-0.031); Immature Granulocyte Percent A 0.2 % (0-0.5); Lymphocytes Absolute Auto 3.48 K/mm3 (0.9-3.2); Lymphocytes Percent Auto 36.1 % (18.3-44.2); Mean Corpuscular HGB Conc 34.1 g/dl (32-36); Mean Corpuscular Hemoglobin 30.7 pg (26-34); Mean Platelet Volume 10.1 fl (7.4-10.4); Monocytes Absolute Auto 0.5 K/mm3 (0.1-0.6); Monocytes Percent Auto 4.9 % (2.6-8.5); Neutrophils Absolute Auto 5.3 K/mm3 (1.3-6.7); Neutrophils Percent Auto 55.2 % (45.5-73.1); Platelet Count Result 325 k/mm3 (150-375); Red Blood Count 4.82 M/mm3 (4.6-6.20); Red Cell Distribution Width 11.3 % (11.5-14.5); White Blood Count 9.7 K/mm3 (4.5-10.0)
[2022-11-15 22:00] VITALS: BP 140/92; PULSE 73; RESP 16; O2SAT 98
[2022-11-15 22:10] LABS: Alanine Aminotransferase 34 U/L (6-50); Albumin Level 4.4 g/dL (3.5-5.1); Alkaline Phosphatase 141 U/L (38-126); Anion Gap 7 mmol/L (8-16); Aspartate Amino Transferase 48 U/L (17-59); Bilirubin,Total 0.5 mg/dL (0.2-1.3); Blood Urea Nitrogen 15 mg/dL (9-20); Carbon Dioxide 26 mmol/L (22-30); Chloride 101 mmol/L (98-107); Estimated CRCL calculation 108 ml/min; Estimated Glomerular Filt Rate > 60; Glucose 117 mg/dL (65-110); Magnesium 2.1 mg/dL (1.6-2.3); Potassium 3.8 mmol/L (3.4-5.0); Sodium 134 mmol/L (137-145)
[2022-11-15 23:00] VITALS: BP 130/80; PULSE 73; RESP 16; O2SAT 99
[2022-11-16] VITALS: BP 158/99; PULSE 64; RESP 16; TEMP 36.8; O2SAT 98
== END 2022-11-16 00:13 | disposition home or self-care (01) ==
PROVIDERS: Emergency Provider Emergency Medicine
DX: R20.2 Paresthesia of skin (principal); J45.909 Unspecified asthma, uncomplicated; I10 Essential (primary) hypertension; K76.0 Fatty (change of) liver, not elsewhere classified
CPT/HCPCS: 36415; 80053; 83735; 85025; 93005; 99283

== ENCOUNTER 2023-01-15 22:10 | Emergency (ER) | payer BC, SELFPAY ==
--- NOTE | ~2023-01-15 | XR_ITS ---
EXAMINATION: XR chest 2V DATE: 01/15/2023 23:03 INDICATION: Chest pain. TECHNIQUE: Frontal and lateral views of the chest were obtained. COMPARISON: Chest 2 views 11/02/[address] 10/31/2022 FINDINGS: There is mild atelectasis in right lower lung zone. No pleural effusion or pneumothorax. Ca rdiomegaly is noted. IMPRESSION: 1. Mild atelectasis in right lower lung zone. 2. Cardiomegaly. Reviewed, dictated and finalized at location A. INSTALLATION AND SERVICER
--- NOTE | ~2023-01-15 | CT_ITS ---
EXAMINATION: CTA chest abdomen pelvis DATE: 01/16/2023 00:19 INDICATION: Chest tightness, back pain for one day. Evaluate for aortic dissection. TECHNIQUE: Computed tomography angiography (CTA) of the chest, abdomen and pelvis was performed with 100 mL Omnipaque-350 intravenous contrast timed to evaluate the pulmonary arteries. Coronal maximum i ntensity projection 3D-reconstructions were created by the technologist. Automated exposure control a nd iterative reconstruction technique were employed. Exam dose: 1933.46 mGy-cm total exam DLP. COMPARISON: 10/31/2022 CTA chest FINDINGS: No thoracic or abdominal aortic aneurysm or dissection. No atherosclerotic calcification of the thoracic or abdominal aorta or coronary arteries is identified. Normal size and homogeneous enhancement of the thyroid gland. No hilar or mediastinal mass lesion or lymphadenopathy. Normal heart size. No pericardial or pleural effusion. The liver, gallbladder, bile ducts, spleen, pancreas, pancreatic duct, and adrenal glands and kidneys are unremarkable. The urinary bladder is unremarkable. Normal appendix. No bowel obstruction, bowel wall thickening, pneumatosis or intraperitoneal free air . Multiple fat-containing ventral abdominal hernias. Included skeletal structures are unremarkable except for some prominent degenerative change at the ap ophyseal joints and the lumbosacral area. IMPRESSION: No evidence of thoracic or abdominal aortic aneurysm or dissection Reviewed, dictated and finalized at Location [facility]. Reviewed, dictated and finalized at location A. EDIGGER
[2023-01-15 22:12] VITALS: BP 190/114; PULSE 58; RESP 18; TEMP 36.6; O2SAT 100
--- NOTE | 2023-01-15 22:35 | ECG_ITS ---
Measurements Intervals [place] Rate: 57 P: 22 AL: 157 QRS: 15 QRSD: 105 T: -70 QT: 433 QTc: 424 Interpretive Statements SINUS BRADYCARDIA LEFT VENTRICULAR HYPERTROPHY WITH SECONDARY REPOLARIZATION ABNORMALITY ABNORMAL ECG COMPARED TO ECG 11/15/2022 21:04:28 NO SIGNIFICANT CHANGES Electronically Signed On 01-16-2023 7:54:55 FUR FLOOR WORKER by Jeramy Hartley M.D.
--- NOTE | 2023-01-15 22:37 | ED.BACK ---
HPI - Back Pain/Injury General Chief Complaint: Back Pain/Injury <Cecily Ignacio PA-C - Last Filed: 01/18/23 17:15> Stated Complaint: back pain <Cecily Ignacio PA-C - Last Filed: 01/18/23 17:15> Time Seen by Provider: 01/15/23 22:24 <Cecily Ignacio PA-C - Last Filed: 01/18/23 17:15> History of Present Illness HPI Narrative: 42-year-old male with a history of asthma, obesity, malignant hypertension reports for left posterior shoulder/scapular pain for 1 day. Pt reports the pain is constant. He reports a an intermittent productive cough with clear sputum and a mild headache that started today. Denies hemoptysis CP, SOB, vision changes, focal numbness, weakness or tingling, altered mental status, facial paralysis, fever, body aches, chills, injury to his shoulder. He is not on anticoagulation, denies trauma to the head. Pt was admitted in 11/12 when he was dx with malignant HTN. He was evaluated by cardiology and dx with cardiomyopathy, EF 35-40%. He was started on Jardiance, lisinopril, Coreg, spironolactone, atorvastatin, ASA. He was discharged with a LifeVest, which she reports he wears most days, but did does not want to wear it at night because it is uncomfortable. He is currently not wearing the LifeVest. Patient reports he never followed up with cardiology or primary care. States he ran out of Jardiance, lisinopril, spironolactone and is out of refills. Reports he has not taken aspirin today, but he did take Coreg and atorvastatin. He denies orthopnea, lower leg swelling, abdominal swelling. Pt reports his BP at home runs ~160-170/80-100 <Cecily Ignacio PA-C - Last Filed: 01/18/23 17:15> Related Data Home Medications: Home Medications Medication Instructions Recorded Confirmed albuterol sulfate 90 mcg/actuation 1 inh inhalation PRN PRN Shortness 11/02/22 11/02/22 aerosol inhaler Of Breath Or Wheezing <Cecily Ignacio PA-C - Last Filed: 01/18/23 17:15> Allergies/Adverse Reactions: Allergies Allergy/AdvReac Type Severity Reaction Status Date / Time amoxicillin [From Augmentin] Allergy Unknown Verified 01/15/23 22:17 clavulanic acid Allergy Unknown Verified 01/15/23 22:17 [From Augmentin] AMOXICILLIN TRIHYDRATE Allergy Mild Unknown Uncoded 01/15/23 22:17 POTASSIUM CLAVULANATE Allergy Mild Unknown Uncoded 01/15/23 22:17 <Cecily Ignacio PA-C - Last Filed: 01/18/23 17:15> Review of Systems Review of Systems: CONSTITUTIONAL: Denies fever, chills EYES: Denies visual changes, redness, or discharge. ENT: Denies rhinorrhea, congestion, sore throat, or otalgia. CARDIOVASCULAR: See HPI RESPIRATORY: Denies cough or dyspnea. GASTROINTESTINAL: Denies abdominal pain, nausea, vomiting, or diarrhea. GENITOURINARY: Denies dysuria or hematuria. SKIN: Denies rash or itching. MUSCULOSKELETAL: Denies back pain, joint pain, or myalgia. NEUROLOGIC: Denies headache, numbness, dizziness, or weakness. PSYCHIATRIC: Denies anxiety or depression. <Cecily Ignacio PA-C - Last Filed: 01/18/23 17:15> [facility] Past Medical History Medical History: Medical History Asthma Essential hypertension, malignant Hepatic steatosis Kidney stones Left ureteral stone with hydronephrosis April 2021 Obesity BMI of 41.4 10/31/2022 <Cecily Ignacio PA-C - Last Filed: 01/18/23 17:15> Surgical History Surgical History: Surgical History History of tonsillectomy (~2018) <Cecily Ignacio PA-C - Last Filed: 01/18/23 17:15> Family History Family History: Family History Father , 68 Agent orange exposure Mother Asthma Meningitis <Cecily Ignacio PA-C - Last Filed: 01/18/23 17:15> Social History Social History: Social History (Reviewed 01/15/23 @ 22:53 by Cecily Ignacio PA-C
[2023-01-15] MEDS: ASPIRIN 81 MG CHEWABLE TABLET 324 MG PO (22:55)
[2023-01-15] MEDS: hydrALAZINE HCL 20 MG/ML VIAL 10 MG IV PUSH (22:55)
[2023-01-15 23:18] VITALS: BP 179/105; PULSE 88; RESP 18; O2SAT 99
[2023-01-15 23:22] LABS: Basophils Percent Auto 0.2 % (0.2-1.2); Eosinophils Absolute Auto 0.3 K/mm3 (0-0.3); Eosinophils Percent Auto 3.6 % (0-4.4); Hematocrit 40.6 % (42.0-52.0); Immature Granulocyte Absolute 0.01 K/mm3 (0.00-0.031); Immature Granulocyte Percent A 0.1 % (0-0.5); Lymphocytes Absolute Auto 3.44 K/mm3 (0.9-3.2); Lymphocytes Percent Auto 40.3 % (18.3-44.2); Mean Corpuscular HGB Conc 34.5 g/dl (32-36); Mean Corpuscular Hemoglobin 31.3 pg (26-34); Mean Corpuscular Volume 90.8 fl (80-100); Mean Platelet Volume 9.9 fl (7.4-10.4); Monocytes Absolute Auto 0.6 K/mm3 (0.1-0.6); Monocytes Percent Auto 6.7 % (2.6-8.5); Neutrophils Absolute Auto 4.2 K/mm3 (1.3-6.7); Neutrophils Percent Auto 49.1 % (45.5-73.1); Platelet Count Result 238 k/mm3 (150-375); Red Blood Count 4.47 M/mm3 (4.6-6.20); Red Cell Distribution Width 11.9 % (11.5-14.5); White Blood Count 8.5 K/mm3 (4.5-10.0)
[2023-01-15 23:33] LABS: Alanine Aminotransferase 29 U/L (6-50); Albumin Level 4.5 g/dL (3.5-5.1); Alkaline Phosphatase 95 U/L (38-126); Anion Gap 5 mmol/L (8-16); Aspartate Amino Transferase 35 U/L (17-59); Bilirubin,Total 0.6 mg/dL (0.2-1.3); Blood Urea Nitrogen 13 mg/dL (9-20); Calcium 9.1 mg/dL (8.4-10.2); Carbon Dioxide 29 mmol/L (22-30); Chloride 104 mmol/L (98-107); Estimated CRCL calculation 103 ml/min; Estimated Glomerular Filt Rate > 60; Glucose 95 mg/dL (65-110); Potassium 3.6 mmol/L (3.4-5.0); Sodium 138 mmol/L (137-145)
[2023-01-15 23:37] LABS: Appearance Urine Clear (Clear); Bilirubin Urine Negative (Negative); Blood Urine Negative (Negative); Color Urine Yellow (Yellow); Glucose Urine UA 3+ mg/dL (Negative); Ketones Urine Negative (Negative); Leukocyte Esterase Ur Negative LEU/UL (Negative); Nitrate Urine Negative (Negative); Protein Urine Negative (Negative); Specific Grav Ur 1.034 (1.001-1.035); Urobilinogen Urine 0.2 mg/dL (<2.0)
[2023-01-15 23:42] LABS: Add Urine Microscopic? YES
[2023-01-15 23:44] LABS: NT Pro B Type Natriuretic Pept 378 pg/mL (19.9-100); Troponin I 0.016 ng/mL (0.000-0.034)
[2023-01-16] VITALS (20 sets, daily range): BP systolic 153–175; BP diastolic 88–132; PULSE 55–92; RESP 11–35; TEMP 36.6; O2SAT 97–100
[2023-01-16 02:02] LABS: Troponin I 0.015 ng/mL (0.000-0.034)
[2023-01-16] MEDS: SPIRONOLACTONE 25 MG TABLET PO (04:06)
[2023-01-16] MEDS: EMPAGLIFLOZIN 10 MG TABLET PO (04:06)
[2023-01-16] MEDS: lisinopriL 10 MG TABLET PO (04:06)
== END 2023-01-16 04:16 | disposition home or self-care (01) ==
PROVIDERS: Physician Assistant; Emergency Provider Emergency Medicine; PCP Emergency Medicine
DX: M25.512 Pain in left shoulder (principal); I16.0 Hypertensive urgency; I10 Essential (primary) hypertension; J45.909 Unspecified asthma, uncomplicated; I42.9 Cardiomyopathy, unspecified; E66.9 Obesity, unspecified; Z68.38 Body mass index [BMI] 38.0-38.9, adult; Z87.442 Personal history of urinary calculi; Z79.84 Long term (current) use of oral hypoglycemic drugs; Z79.82 Long term (current) use of aspirin; R00.1 Bradycardia, unspecified; I51.7 Cardiomegaly
CPT/HCPCS: 36415; 71046; 71275; 74174; 80053; 81001; 83735; 83880; 84484; 85025; 93005; 96374; 99284; A9270; J0360; Q9967

== ENCOUNTER 2023-03-03 13:22 | Emergency (ER) | payer BC, SELFPAY ==
--- NOTE | ~2023-03-03 | XR_ITS ---
XR chest 2V DATE: 03/03/2023 14:12 INDICATION: Chest pain. History of asthma. TECHNIQUE: PA and lateral views COMPARISON: January 15, 2023 CTA chest abdomen pelvis January 15, 2023 2 view chest FINDINGS: Heart size appears borderline. No hilar or mediastinal enlargement. No pulmonary infiltrate or consolidation, pleural effusion or pulmonary vascular congestion or pneumothorax. Included skeletal structures are unremarkable. IMPRESSION: Borderline heart size; no active pulmonary disease Reviewed, dictated and finalized at location A.
--- NOTE | ~2023-03-03 | CT_ITS ---
EXAMINATION: CTA chest PE protocol DATE: 03/03/2023 17:05 INDICATION: pleuritic chest pain, SOB TECHNIQUE: Computed tomography angiography (CTA) of the chest was performed with 100 mL Omnipaque-350 intravenous contrast timed to evaluate the pulmonary arteries. Coronal maximum intensity projection 3D-reconstructions were created by the technologist. The dose-length product (DLP) was 1049.11 mGy-cm . Automated exposure control and iterative reconstruction technique were employed. COMPARISON: 01/15/2023. FINDINGS: Lung parenchyma and airways: Clear. Pleura: Unremarkable. Thoracic inlet, axillae and chest wall: Mild symmetric bilateral gynecomastia. Marked degenerative ch giuseppe versus old fracture deformity at the articulation of the manubrium with the sternal body. Thoracic aorta: Normal. Mediastinum: Normal. Heart and pericardium: Normal. Coronary artery calcifications: Absent. Upper abdomen: No significant finding. Bones: No acute osseous finding. Pulmonary arteries: Study quality: Adequate. No pulmonary emboli detected. IMPRESSION: No CT evidence of acute pulmonary embolus. No acute intrathoracic process detected. Reviewed, dictated and finalized at location K. IMPRESSION: No CT evidence of acute pulmonary embolus. No acute intrathoracic process detec rashad.
[2023-03-03 13:27] VITALS: BP 140/89; PULSE 72; RESP 16; TEMP 36.7; O2SAT 100
--- NOTE | 2023-03-03 13:27 | ECG_ITS ---
Measurements Intervals [place] Rate: 67 P: 42 AL: 153 QRS: 36 QRSD: 96 T: -31 QT: 404 QTc: 427 Interpretive Statements SINUS RHYTHM WITH SINUS ARRHYTHMIA LEFT VENTRICULAR HYPERTROPHY AND ST-T CHANGE [VOLTAGE CRITERIA PLUS ST/T ABNORMALITY] COMPARED TO ECG 01/15/2023 22:48:43 SINUS ARRHYTHMIA NOW PRESENT Electronically Signed On 03-03-2023 18:22:13 CDT by Candis Arcos M.D.
[2023-03-03 13:57] LABS: Basophils Percent Auto 0.4 % (0.2-1.2); Eosinophils Absolute Auto 0.2 K/mm3 (0-0.3); Eosinophils Percent Auto 2.7 % (0-4.4); Hematocrit 42.6 % (42.0-52.0); Hemoglobin 14.6 g/dL (14.0-18.0); Immature Granulocyte Absolute 0.01 K/mm3 (0.00-0.031); Immature Granulocyte Percent A 0.1 % (0-0.5); Lymphocytes Absolute Auto 2.66 K/mm3 (0.9-3.2); Lymphocytes Percent Auto 35.8 % (18.3-44.2); Mean Corpuscular HGB Conc 34.3 g/dl (32-36); Mean Corpuscular Hemoglobin 30.8 pg (26-34); Mean Corpuscular Volume 89.9 fl (80-100); Mean Platelet Volume 9.9 fl (7.4-10.4); Monocytes Absolute Auto 0.5 K/mm3 (0.1-0.6); Monocytes Percent Auto 6.7 % (2.6-8.5); Neutrophils Percent Auto 54.3 % (45.5-73.1); Platelet Count Result 242 k/mm3 (150-375); Red Blood Count 4.74 M/mm3 (4.6-6.20); Red Cell Distribution Width 11.1 % (11.5-14.5); White Blood Count 7.4 K/mm3 (4.5-10.0)
[2023-03-03 14:10] LABS: Prothrombin Time 13.2 Seconds (11.1-14.7)
[2023-03-03 14:11] LABS: Alanine Aminotransferase 34 U/L (6-50); Albumin Level 4.5 g/dL (3.5-5.1); Alkaline Phosphatase 95 U/L (38-126); Anion Gap 7 mmol/L (8-16); Aspartate Amino Transferase 33 U/L (17-59); Bilirubin,Total 0.7 mg/dL (0.2-1.3); Blood Urea Nitrogen 11 mg/dL (9-20); Calcium 9.3 mg/dL (8.4-10.2); Carbon Dioxide 29 mmol/L (22-30); Chloride 102 mmol/L (98-107); Estimated CRCL calculation 104 ml/min; Estimated Glomerular Filt Rate > 60; Glucose 101 mg/dL (65-110); Lipase 92 U/L (23-300); Potassium 4.3 mmol/L (3.4-5.0); Sodium 138 mmol/L (137-145)
[2023-03-03 14:21] LABS: Troponin I 0.023 ng/mL (0.000-0.034)
--- NOTE | 2023-03-03 16:28 | ED.GENADULT ---
HPI - General Adult General Chief complaint: Unspecified Stated complaint: back tightness Time Seen by Provider: 03/03/23 16:25 History of Present Illness HPI narrative: 43-year-old male with a history of hypertension, heart failure with recovered EF, numerous presentations to the ED for hypertensive urgency and chest pain, here for evaluation of left-sided back/scapular pain x3 days. Patient states the pain is there with deep breaths and is worse with inspiration. He denies any cough, chest pain, fevers, chills. he describes a similar sensation in the past that has brought him into the ER. He has been admitted for cardiac stress testing that was reportedly abnormal, although his echo did show a diminished EF and where he was on a LifeVest for a brief period of time. Patient reportedly was offered cardiac catheterization but he declined because he was afraid of the complications. Related Data Home Medications Medication Instructions Recorded Confirmed albuterol sulfate 90 mcg/actuation 1 inh inhalation PRN PRN Shortness 11/02/22 11/02/22 aerosol inhaler Of Breath Or Wheezing Allergies Allergy/AdvReac Type Severity Reaction Status Date / Time amoxicillin [From Augmentin] Allergy Unknown Verified 03/03/23 16:47 clavulanic acid Allergy Unknown Verified 03/03/23 16:47 [From Augmentin] AMOXICILLIN TRIHYDRATE Allergy Mild Unknown Uncoded 01/15/23 22:17 POTASSIUM CLAVULANATE Allergy Mild Unknown Uncoded 01/15/23 22:17 Review of Systems Review of Systems: Gen.: Denies fevers or chills Eyes: Denies eye pain or visual change ENT: Denies congestion Respiratory: no SOB CV: Denies chest pain or palpitations GI: Denies abdominal pain nausea, emesis or diarrhea denies burning, urgency, frequency or hematuria Musculoskeletal: reports back pain Neuro: Denies numbness, tingling, weakness or focal weakness Skin: Denies rash Except as documented, all other systems reviewed and negative [facility] Past Medical History Medical History Asthma Essential hypertension, malignant Hepatic steatosis Kidney stones Left ureteral stone with hydronephrosis April 2021 Obesity BMI of 41.4 10/31/2022 Surgical History Surgical History History of tonsillectomy (~2018) Family History Family History Father , 68 Agent orange exposure Mother Asthma Meningitis Social History Social History Social History: Patient lives with his of 21 years. They have 2 children ages 18 and 19 years old. He very rarely drinks alcohol and only small amounts. 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 Code status: Full code Surrogate decision maker: Smoking status: Never smoker Alcohol intake: current Drinks per week: 1 Alcohol use details: Rare use in small amounts Substance use: never Lack of Transportation: No Lack of Food: Never True Current Housing: I Have Housing Concerned About Future Housing: No Difficulty Paying Gas/Electric Bills: No Difficulty Paying for Meds: No Currently Unemployed: No Education: Trade/Vocational Certificate Difficulty w/ Childcare or Family Care: No Additional living arrangements comments: Gender identity (if verbalized by the patient): Male Sexual Orientation (if Verbalized by the Patient): Straight or Heterosexual Spiritual care concerns: No Exam Narrative: APPEARANCE: Well appearing, no pain in distress, well-nourished. Head: Normocephalic and atraumatic. EYES: PERRLA/EOMI, conjunctivae clear NOSE: No nasal drainage EARS: External ear normal in appearance THROAT: Oropharynx is clear. Mucous membranes are moist. NECK: Supple. No adenopathy, no masses. RESPIRATORY: diminis
[2023-03-03 17:14] LABS: Troponin I 0.016 ng/mL (0.000-0.034)
[2023-03-03 18:02] VITALS: BP 146/96; PULSE 75; RESP 17; O2SAT 100
== END 2023-03-03 18:07 | disposition home or self-care (01) ==
PROVIDERS: Emergency Medicine; Emergency Provider Physician Assistant; PCP Emergency Medicine
DX: M25.512 Pain in left shoulder (principal); I50.9 Heart failure, unspecified; I11.0 Hypertensive heart disease with heart failure; J45.909 Unspecified asthma, uncomplicated; E66.9 Obesity, unspecified; Z68.41 Body mass index [BMI] 40.0-44.9, adult; Z87.442 Personal history of urinary calculi; I51.7 Cardiomegaly
CPT/HCPCS: 36415; 71046; 71275; 80053; 83690; 84484; 85025; 85610; 85730; 93005; 99284; Q9967

== ENCOUNTER 2023-07-29 05:08 | Emergency (ER) | payer BC, SELFPAY ==
[2023-07-29 05:11] VITALS: BP 190/116; PULSE 63; RESP 15; TEMP 36.3; O2SAT 100
[2023-07-29 08:00] VITALS: BP 174/123; PULSE 67; RESP 14; O2SAT 100
[2023-07-29 08:30] VITALS: BP 175/116; PULSE 60; RESP 15; O2SAT 100
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
[2023-07-29 09:08] VITALS: BP 168/108; PULSE 65; RESP 16; O2SAT 99
== END 2023-07-29 09:23 | disposition home or self-care (01) ==
PROVIDERS: Emergency Provider Nurse Practitioner Family
DX: S29.012A Strain of muscle and tendon of back wall of thorax, initial encounter (principal); I10 Essential (primary) hypertension; J45.909 Unspecified asthma, uncomplicated; Z87.442 Personal history of urinary calculi; E66.9 Obesity, unspecified; Z68.41 Body mass index [BMI] 40.0-44.9, adult; T50.0X6A Underdosing of mineralocorticoids and their antagonists, initial encounter; T46.4X6A Underdosing of angiotensin-converting-enzyme inhibitors, initial encounter; V47.5XXA Car driver injured in collision with fixed or stationary object in traffic accident, initial encounter
CPT/HCPCS: 99283

== ENCOUNTER 2023-09-11 03:57 | Observation (INO) | payer BC, SELFPAY ==
[2023-09-11] VITALS (39 sets, daily range): BP systolic 150–187; BP diastolic 96–128; PULSE 67–104; RESP 13–21; TEMP 35.8–36.6; O2SAT 93–100; BMI 45.4
--- NOTE | ~2023-09-11 | XR_ITS ---
XR chest 1V portable 09/11/2023 05:10 Indication: Right-sided chest pain and hypertension Procedure: AP portable chest Comparison: Comparison to multiple prior studies sequentially, with oldest reviewed study dated 10/22. Findings: Heart size upper normal. Mild pulmonary vascular congestion. No focal pneumonia, edema, ple ural effusion or pneumothorax. Impression: 1: No acute cardiopulmonary disease. Reviewed, dictated and finalized at location A. Impression: 1: No acute cardiopulmonary disease.
--- NOTE | 2023-09-11 04:03 | ECG_ITS ---
Measurements Intervals [place] Rate: 73 P: 40 MD: 151 QRS: 19 QRSD: 102 T: -43 QT: 384 QTc: 426 Interpretive Statements SINUS RHYTHM VOLTAGE CRITERIA FOR LEFT VENTRICULAR HYPERTROPHY ABNORMAL ECG COMPARED TO ECG 03/03/2023 13:39:39 T-WAVE ABNORMALITY NOW PRESENT Electronically Signed On 09-11-2023 8:54:16 CDT by Jeramy Hartley M.D.
[2023-09-11 04:23] LABS: Basophils Percent Auto 0.2 % (0.2-1.2); Eosinophils Absolute Auto 0.2 K/mm3 (0-0.3); Eosinophils Percent Auto 2.8 % (0-4.4); Hematocrit 42.9 % (42.0-52.0); Hemoglobin 14.2 g/dL (14.0-18.0); Immature Granulocyte Absolute 0.03 K/mm3 (0.00-0.031); Immature Granulocyte Percent A 0.4 % (0-0.5); Lymphocytes Absolute Auto 3.58 K/mm3 (0.9-3.2); Lymphocytes Percent Auto 42.2 % (18.3-44.2); Mean Corpuscular HGB Conc 33.1 g/dl (32-36); Mean Corpuscular Hemoglobin 30.4 pg (26-34); Mean Corpuscular Volume 91.9 fl (80-100); Mean Platelet Volume 9.9 fl (7.4-10.4); Monocytes Absolute Auto 0.6 K/mm3 (0.1-0.6); Monocytes Percent Auto 7.1 % (2.6-8.5); Neutrophils Percent Auto 47.3 % (45.5-73.1); Platelet Count Result 219 k/mm3 (150-375); Red Blood Count 4.67 M/mm3 (4.6-6.20); Red Cell Distribution Width 11.6 % (11.5-14.5); White Blood Count 8.5 K/mm3 (4.5-10.0)
[2023-09-11] MEDS: ASPIRIN 81 MG CHEWABLE TABLET 324 MG PO (04:25)
[2023-09-11 04:33] LABS: Alanine Aminotransferase 30 U/L (6-50); Albumin Level 4.5 g/dL (3.5-5.1); Alkaline Phosphatase 112 U/L (38-126); Anion Gap 11 mmol/L (8-16); Aspartate Amino Transferase 35 U/L (17-59); Bilirubin,Total 0.7 mg/dL (0.2-1.3); Blood Urea Nitrogen 24 mg/dL (9-20); Calcium 9.4 mg/dL (8.4-10.2); Carbon Dioxide 23 mmol/L (22-30); Chloride 103 mmol/L (98-107); Estimated CRCL calculation 112 ml/min; Estimated Glomerular Filt Rate > 60; Glucose 111 mg/dL (65-110); Lipase 162 U/L (23-300); Potassium 4.1 mmol/L (3.4-5.0); Sodium 137 mmol/L (137-145)
[2023-09-11 04:39] LABS: INR 0.9; Prothrombin Time 12.9 Seconds (11.1-14.7)
[2023-09-11 04:40] LABS: Partial Thromboplastin Time 31.8 SECONDS (22.3-36.8)
[2023-09-11 04:47] LABS: Troponin I 0.038 ng/mL (0.000-0.034)
[2023-09-11 04:50] LABS: D Dimer 0.28 ug/mL (<0.48)
[2023-09-11 04:52] LABS: NT Pro B Type Natriuretic Pept 68 pg/mL (19.9-100)
[2023-09-11] MEDS: hydrALAZINE HCL 20 MG/ML VIAL 10 MG IV PUSH ×2 (05:27→13:04)
--- NOTE | 2023-09-11 05:27 | ED.GENADULT ---
HPI - General Adult General Chief complaint: Chest Pain Stated complaint: right sided chest pain Time Seen by Provider: 09/11/23 04:09 History of Present Illness HPI narrative: Is a 23-year-old gentleman who presents the emergency department with chief complaint of chest discomfort. The patient states that for couple weeks has been having some discomfort on the right side of his chest at the sternal border patient states he tried to adjust his ribs that will help briefly but then the discomfort comes back patient also reports he has history of hypertension and has had hypertensive crisis as before in the past where his blood pressures been up in the 250s the patient states that his blood pressures in the 180s right now which is actually good for him. The patient denies shortness of breath denies diaphoresis Related Data Home Medications Medication Instructions Recorded Confirmed albuterol sulfate 90 mcg/actuation 1 inh inhalation PRN PRN Shortness 11/02/22 11/02/22 aerosol inhaler Of Breath Or Wheezing Allergies Allergy/AdvReac Type Severity Reaction Status Date / Time amoxicillin [From Augmentin] Allergy Unknown Verified 09/11/23 04:12 clavulanic acid Allergy Unknown Verified 09/11/23 04:12 [From Augmentin] AMOXICILLIN TRIHYDRATE Allergy Mild Unknown Uncoded 09/11/23 04:05 POTASSIUM CLAVULANATE Allergy Mild Unknown Uncoded 09/11/23 04:05 Review of Systems Review of Systems: A 10 system review of systems was completed on the patient and is negative except for what is stated in the HPI. Nursing and ancillary documentation was reviewed. [facility] Past Medical History Medical History Asthma Essential hypertension, malignant Hepatic steatosis Kidney stones Left ureteral stone with hydronephrosis April 2021 Obesity BMI of 41.4 10/31/2022 Surgical History Surgical History History of tonsillectomy (~2018) Family History Family History Father , 68 Agent orange exposure Mother Asthma Meningitis Social History Social History Social History: Patient lives with his of 21 years. They have 2 children ages 18 and 19 years old. He very rarely drinks alcohol and only small amounts. 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 Code status: Full code Surrogate decision maker: Smoking status: Never smoker Alcohol intake: current Drinks per week: 1 Alcohol use details: Rare use in small amounts Substance use: never Lack of Transportation: No Lack of Food: Never True Current Housing: I Have Housing Concerned About Future Housing: No Difficulty Paying Gas/Electric Bills: No Difficulty Paying for Meds: No Currently Unemployed: No Education: Trade/Vocational Certificate Difficulty w/ Childcare or Family Care: No Additional living arrangements comments: Gender identity (if verbalized by the patient): Male Sexual Orientation (if Verbalized by the Patient): Straight or Heterosexual Spiritual care concerns: No Exam Narrative: GENERAL: Well-appearing, well-nourished, and in no acute distress. HEAD: Normocephalic, atraumatic. EYES: PERRLA and EOMI. ENT: Nares clear, no rhinorrhea or epistaxis. Mucous membranes moist. NECK: Supple. CHEST: Clear to auscultation. No respiratory distress. HEART: Regular rate and rhythm. No murmur heard. Normal peripheral pulses. ABDOMEN: Soft, nontender, nondistended, normal active bowel sounds. EXTREMITIES: Normal range of motion. No edema. SKIN: Warm, dry, no rash. NEURO: No focal deficits. Alert and oriented x3. PSYCH: Normal mood and affect. Course Vital Signs Vital signs: Vital Signs Temperature 36.6 C 09/11/23
[2023-09-11 07:29] LABS: Troponin I 0.025 ng/mL (0.000-0.034)
--- NOTE | 2023-09-11 08:00 | ADMGEN ---
This patient, Gerson Navarrete, was admitted to IMU Room 212-01. Patient/family oriented to hospital policies and general routines including ID bracelet, bed and alarms, visiting hours, pain management, procedures, bathroom and other care routines, personal items, smoking policy, room service/diet, and visiting hours. Information on how to activate the Rapid Response Team has been discussed. Patient/Family are encouraged to report perceived risks to care and to ask questions if they do not understand what they are told or what they should do.
--- NOTE | 2023-09-11 08:02 | PM.IMHP ---
H&P: HPI History of Present Illness Date/Time: 09/11/23 08:02 Chief Complaint: chest pain Narrative: 43-year-old gentleman who presents the emergency department with chief complaint of chest discomfort.? The patient states that for couple weeks has been having some discomfort on the right side of his chest at the sternal border patient states he tried to adjust his ribs that will help briefly but then the discomfort comes back patient also reports he has history of hypertension and has had hypertensive crisis as before in the past where his blood pressures been up in the 250s the patient states that his blood pressures in the 180s right now which is actually good for him.? The patient denies shortness of breath denies diaphoresis. He feels great he has not followed up with anybody since last hospital visit. Lisinopril causes cough Review of Systems Review of Systems: - CONSTITUTIONAL: Denies weight loss, fever and chills. - HEENT: Denies changes in vision and hearing - RESPIRATORY: Denies SOB and cough. - CV: Denies palpitations and CP. - GI: Denies abdominal pain, nausea, vomiting and diarrhea. - : Denies dysuria and urinary frequency. - MSK: Denies myalgia and joint pain. - SKIN: Denies rash and pruritus. - NEUROLOGICAL: Denies headache and syncope. - PSYCHIATRIC: Denies recent changes in mood. Denies anxiety and depression. [facility] Past Medical History Medical History Asthma Essential hypertension, malignant Hepatic steatosis Kidney stones Left ureteral stone with hydronephrosis April 2021 Obesity BMI of 41.4 10/31/2022 Surgical History Surgical History History of tonsillectomy (~2018) Family History Family History Father , 68 Agent orange exposure Mother Asthma Meningitis Social History Social History Social History: Patient lives with his of 21 years. They have 2 children ages 18 and 19 years old. He very rarely drinks alcohol and only small amounts. 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 Code status: Full code Surrogate decision maker: Smoking status: Never smoker Alcohol intake: never Drinks per week: 1 Alcohol use details: Rare use in small amounts Substance use: never Substance use type: does not use Lack of Transportation: No Lack of Food: Never True Current Housing: I Have Housing Concerned About Future Housing: No Difficulty Paying Gas/Electric Bills: No Difficulty Paying for Meds: No Currently Unemployed: No Education: Decline to Answer Difficulty w/ Childcare or Family Care: No Additional living arrangements comments: Gender identity (if verbalized by the patient): Male Sexual Orientation (if Verbalized by the Patient): Straight or Heterosexual Spiritual care concerns: No Meds Home Medications and Allergies Home Medications Medication Instructions Recorded Confirmed Type carvedilol 12.5 mg tablet (Coreg) 12.5 mg PO Q12HR #60 tabs 11/06/22 09/11/23 Rx lisinopril 10 mg tablet 10 mg PO QAM #30 tabs 11/06/22 09/11/23 Rx spironolactone 25 mg tablet 25 mg PO QAM #30 tabs 11/06/22 09/11/23 Rx atorvastatin 40 mg tablet 40 mg PO DAILY #30 tabs 03/03/23 09/11/23 Rx albuterol sulfate 90 mcg/actuation 2 puff inhalation Q4-6H PRN 07/29/23 09/11/23 Rx aerosol inhaler shortness of breath or wheezing 30 days #8.5 grams Allergies Allergy/AdvReac Type Severity Reaction Status Date / Time amoxicillin [From Augmentin] Allergy Unknown Verified 09/11/23 04:12 clavulanic acid Allergy Unknown Verified 09/11/23 04:12 [From Augmentin] AMOXICILLIN TRIHYDRATE Allergy Mild Unknown Uncoded 09/11/23 04:05 POTASSIUM CLAVUL
[2023-09-11] MEDS: SPIRONOLACTONE 25 MG TABLET PO (10:09)
[2023-09-11] MEDS: ASPIRIN 81 MG CHEWABLE TABLET PO (10:09)
[2023-09-11] MEDS: carvediloL 12.5 MG TABLET PO ×2 (10:09→21:32)
[2023-09-11 10:50] LABS: Troponin I 0.018 ng/mL (0.000-0.034)
--- NOTE | 2023-09-11 13:06 | PM.CNCAR ---
Assessment and Plan Assessment and plan (1) Cardiomyopathy: Code(s): I42.9 - Cardiomyopathy, unspecified Status: Acute (2) Essential hypertension, malignant: Code(s): I10 - Essential (primary) hypertension Status: Acute Plan This is a 43-year-old gentleman who has longstanding relatively severe hypertension and hypertensive cardiomyopathy who has been noncompliant with his medication and follow-up. He did develop a cough in response to his NARESH-inhibitor when it was started last year. I am seeing him at this request in consultation and he has modest elevation of his troponin. I would recommend starting him back on guideline directed directed medical therapy and I will replaces lisinopril with losartan. I do not believe his chest pain is related to myocardial ischemia and no further ischemia evaluation is planned at this time as mentioned in my note detailed above catheterization was offered this patient last year and he declined. I do not believe we need to revisit this discussion at this time. When he does go home from the hospital I will ensure that he is offered appropriate follow-up in our office again hopefully he will be more compliant this time Jeramy Hartley MD [facility] History of Present Illness History of Present Illness Consult date/time: 09/11/23 13:06 Reason For Visit: Chest Pain, Hypertiension, Elevated Troponin Narrative: This is a 43-year-old man with longstanding hypertension and I established diagnosis of hypertensive cardiomyopathy who I am seeing today at the request of the hospitalist because of chest pain and elevated troponins. The patient has a history of hypertension with depressed LV systolic function was seen by my partner, Dr. Arcos in October of last year. He was started on appropriate guideline directed medical therapy for this. Because of his reduced ejection fraction catheterization was recommended and discussed but declined by the patient. Appropriate office follow-up was recommended and scheduled. The patient did not maintain follow-up appointments and has not been taking his medication. He was feeling badly yesterday in the way of having some right posterior shoulder pain. He thought that he had a pulled muscle but became concerned that his blood pressure was very high so he came and into the emergency room where he was evaluated. His electrocardiogram shows sinus rhythm with LVH and repolarization abnormalities and is unchanged from electrocardiograms that are previously in his record. He does not have any history of exertional chest pressure heaviness he is not experiencing orthopnea PND edema palpitations or syncope. He was placed on lisinopril and Lenin of last year as part of his medical therapy. He said he was experiencing a cough as a side effect of that medication. He understands and takes full responsibility for the fact that he has not been taking his medication or coming to see my partner in follow-up Review of Systems Constitutional: Constitutional: Reports no additional constitutional complaints Eyes: Eyes: Reports no additional eye complaints ENT: Reports system reviewed and no additional complaints, except as documented Cardiovascular: Cardiovascular: Reports as per HPI Respiratory: Respiratory: Reports no additional respiratory complaints Gastrointestinal: Gastrointestinal: Reports no additional gastrointestinal complaints Musculoskeletal: Musculoskeletal: Reports as per HPI Comments: Intermittent shoulder pain Integumentary/Breasts: Skin/Breast: Reports system reviewed and no additional complaints, except as docu Neurologic: Comments: Alert and oriented x3 Endocrine: Endocrine: Reports no additional endocrine complaints Hematologic/Lymphatic: Hematologic/Lymphatic: Reports no additional hematologic/lymphatic complaints Allergic/Immunologic: Allergic/Immunologic: Reports no additional allergic/immunologic complaints [facility]
[2023-09-11] MEDS: LOSARTAN POTASSIUM 100 MG TABLET PO (13:22)
[2023-09-12] VITALS (8 sets, daily range): BP systolic 139; BP diastolic 91–100; PULSE 65–93; RESP 16–18; TEMP 36.3–36.6; O2SAT 99–100
[2023-09-12 04:28] LABS: Basophils Percent Auto 0.2 % (0.2-1.2); Eosinophils Absolute Auto 0.3 K/mm3 (0-0.3); Eosinophils Percent Auto 3.5 % (0-4.4); Hematocrit 43.6 % (42.0-52.0); Hemoglobin 14.5 g/dL (14.0-18.0); Immature Granulocyte Absolute 0.03 K/mm3 (0.00-0.031); Immature Granulocyte Percent A 0.4 % (0-0.5); Lymphocytes Absolute Auto 3.57 K/mm3 (0.9-3.2); Lymphocytes Percent Auto 42.8 % (18.3-44.2); Mean Corpuscular HGB Conc 33.3 g/dl (32-36); Mean Corpuscular Hemoglobin 30.8 pg (26-34); Mean Corpuscular Volume 92.6 fl (80-100); Mean Platelet Volume 10.2 fl (7.4-10.4); Monocytes Absolute Auto 0.5 K/mm3 (0.1-0.6); Monocytes Percent Auto 6.5 % (2.6-8.5); Neutrophils Absolute Auto 3.9 K/mm3 (1.3-6.7); Neutrophils Percent Auto 46.6 % (45.5-73.1); Platelet Count Result 234 k/mm3 (150-375); Red Blood Count 4.71 M/mm3 (4.6-6.20); Red Cell Distribution Width 11.4 % (11.5-14.5); White Blood Count 8.3 K/mm3 (4.5-10.0)
[2023-09-12 04:39] LABS: Alanine Aminotransferase 27 U/L (6-50); Albumin Level 4.2 g/dL (3.5-5.1); Alkaline Phosphatase 89 U/L (38-126); Anion Gap 6 mmol/L (8-16); Aspartate Amino Transferase 30 U/L (17-59); Bilirubin,Total 0.7 mg/dL (0.2-1.3); Blood Urea Nitrogen 20 mg/dL (9-20); Calcium 9.2 mg/dL (8.4-10.2); Carbon Dioxide 28 mmol/L (22-30); Chloride 101 mmol/L (98-107); Estimated CRCL calculation 105 ml/min; Estimated Glomerular Filt Rate > 60; Glucose 106 mg/dL (65-110); Magnesium 1.8 mg/dL (1.6-2.3); Potassium 4.2 mmol/L (3.4-5.0); Sodium 135 mmol/L (137-145)
[2023-09-12] MEDS: LOSARTAN POTASSIUM 100 MG TABLET PO (08:51)
[2023-09-12] MEDS: carvediloL 12.5 MG TABLET PO (08:52)
[2023-09-12] MEDS: SPIRONOLACTONE 25 MG TABLET PO (08:52)
[2023-09-12] MEDS: ASPIRIN 81 MG CHEWABLE TABLET PO (08:52)
--- NOTE | 2023-09-12 09:28 | PM.PNCARD ---
Progress Note: A&P Assessment and Plan (1) Cardiomyopathy: Code(s): I42.9 - Cardiomyopathy, unspecified Status: Acute (2) Essential hypertension, malignant: Code(s): I10 - Essential (primary) hypertension Status: Acute Plan 43-year-old man with will longstanding hypertension hypertensive cardiomyopathy doing very well with resumption of guideline directed medical therapy. Hopefully he will be more compliant this time, take his medicine and follow-up in our office. The office will reach out to him tomorrow for those arrangements. He from my perspective he is stable for discharge today Jeramy Hartley MD [facility] Subjective Date/time seen: Date of service: 09/12/23 09:28 Interval history: Follow-up visit in this 43-year-old man with: Chronic essential hypertension with hypertensive cardiomyopathy. Patient admitted with severe hypertension and chest pain because of noncompliance with medication. Medical therapy has been resumed substituting losartan for lisinopril because of his NARESH-inhibitor cough that he developed last year. He feels fine this morning and would like to be discharged. Exam Const: Other: Pleasant obese black male no distress of any kind HENMT: Mouth: Yes moist mucous membranes Eyes: Sclera: sclerae normal Neck: Neck: supple and no JVD Resp: Effort & Inspection: normal respiratory effort Auscultation: clear to auscultation bilaterally Cardio: Rate: regular rate Rhythm: regular rhythm Other: PMI difficult to palpate GI: GI Palp: Yes Soft to palpation Auscultation: normal bowel sounds Skin: General skin exam: normal color Neuro: Other: Alert and oriented x3 Extrem: Other: No edema, good distal perfusion Objective Data Vital Signs Vital Signs: Vital Signs - 24 hr 09/11/23 10:09 09/11/23 11:43 09/11/23 10:00 Temperature 35.8 C L Pulse Rate 71 73 77 Respiratory Rate 20 Blood Pressure 179/117 H Pulse Oximetry 99 Oxygen Delivery 09/11/23 12:00 09/11/23 14:00 09/11/23 15:42 Temperature 36.4 C Pulse Rate 75 78 77 Respiratory Rate 20 Blood Pressure 166/107 H Pulse Oximetry 99 Oxygen Delivery 09/11/23 16:00 09/11/23 18:00 09/11/23 19:54 Temperature 36.2 C L Pulse Rate 84 98 79 Respiratory Rate 20 Blood Pressure 153/99 H Pulse Oximetry 99 Oxygen Delivery 09/11/23 21:32 09/11/23 22:40 09/11/23 20:00 Temperature 36.4 C Pulse Rate 92 100 77 Respiratory Rate 20 Blood Pressure 150/96 H Pulse Oximetry 100 Oxygen Delivery 09/11/23 20:00 09/11/23 22:00 09/12/23 00:00 Temperature Pulse Rate 104 H 70 Respiratory Rate Blood Pressure Pulse Oximetry 100 Oxygen Delivery Room Air 09/12/23 00:00 09/12/23 02:00 09/12/23 04:20 Temperature 36.3 C L Pulse Rate 65 68 Respiratory Rate 18 Blood Pressure 139/100 H Pulse Oximetry 100 100 Oxygen Delivery Room Air 09/12/23 04:00 09/12/23 04:00 09/11/23 21:38 Temperature Pulse Rate 91 Respiratory Rate Blood Pressure Pulse Oximetry 100 100 Oxygen Delivery Room Air Room Air 09/12/23 06:00 09/12/23 08:00 09/12/23 08:52 Temperature 36.6 C Pulse Rate 65 84 93 Respiratory Rate 16 Blood Pressure 139/91 H Pulse Oximetry 99 Oxygen Delivery 09/12/23 08:00 09/12/23 08:00 Temperature Pulse Rate 81 Respiratory Rate Blood Pressure Pulse Oximetry Oxygen Delivery Room Air Intake/Output Intake/Output: Intake & Output 09/09/23 09/10/23 09/11/23 09/12/23 23:59 23:59 23:59 23:59 Intake Total 1970 860 Output Total 475 600 Balance 1495 260 Meds/Results Medications: Active Medications Generic Name Dose Route Start Last Admin Trade Name Claudette PRN Reason Stop Dose Admin Aspirin 81 mg 09/11/23 08:00 09/12/23 08:52 Aspirin 81 Mg Chewable Tablet PO 81 mg DAILY@0800 AURY Administration Carvedilol 12.5 mg 09/11/23 09:00
--- NOTE | 2023-09-12 10:58 | PM.DS ---
DS: Admitting Diagnosis Discharge Date 09/12/2023 Admitting Diagnosis chest pain DS: Discharge Diagnosis Discharge Diagnosis (1) Chest pain: Code(s): R07.9 - Chest pain, unspecified Status: Acute (2) Cardiomyopathy: Code(s): I42.9 - Cardiomyopathy, unspecified Status: Acute (3) Hypertensive urgency: Code(s): I16.0 - Hypertensive urgency Status: Acute (4) Elevated troponin: Code(s): R77.8 - Other specified abnormalities of plasma proteins Status: Acute (5) Essential hypertension, malignant: Code(s): I10 - Essential (primary) hypertension Status: Acute (6) Asthma: Code(s): J45.909 - Unspecified asthma, uncomplicated Status: Acute DS: Summary Hospital Course Hospital Course: # Atypical chest pain Negative D-dimer chest x-ray negative.? Mild troponin elevation extremely hypertensive, cardiology consulted. okay to discharge # Mildly elevated troponin trending down.? EKG? with nonspecific ST-T changes. # Hypertensive urgency? resume lisinopril spironolactone and carvedilol adjust as needed hydralazine p.r.n. lisinopril to losartan due to cough. BP improved and stable # History of cardiomyopathy .? Echo 11/12 with EF 35-40% moderately increased left in abnormal diastolic function # Stress test 11/12 small area moderate infarct involving left ventricular apical and apical inferior segment.? Global hypokinesis with LVEF 23%. needs recheck as op basis # Hyperlipidemia atorvastatin #?history of asthma # DVT prophylaxis Lovenox # Code status full code Time Spent with Patient Time attestation: Total time spent providing and/or coordinating discharge services: 35 minutes Exam Narrative: GENERAL: The patient is well developed, not in acute distress HEENT: Nonicteric sclerae, PERRLA, EOMI. Oropharynx clear. Moist mucous membranes. Conjunctivae appear well perfused. CHEST: Chest wall is nontender. HEART: Regular rate and rhythm without murmur, rubs, or gallops LUNGS: Clear to auscultation bilaterally. no respiratory distress ABDOMEN: Soft, positive bowel sounds, non-tender, no organomegaly. SKIN: No rash, no excessive bruising, petechiae, or purpura. NEUROLOGIC: Cranial nerves II-XII intact, alert and oriented x 3, no gross motor deficits EXTREMITIES: no edema, cyanosis or clubbing DS: Data Data Completed and Pending Labs on day of discharge: Labs from last 24 hours 09/12/23 04:22 WBC 8.3 RBC 4.71 Hgb 14.5 Hct 43.6 MCV 92.6 MCH 30.8 MCHC 33.3 RDW 11.4 L Plt Count 234 MPV 10.2 Immature Gran % (Auto) 0.4 Neut % (Auto) 46.6 Lymph % (Auto) 42.8 Smyth % (Auto) 6.5 Eos % (Auto) 3.5 Baso % (Auto) 0.2 Lymph # (Auto) 3.57 H Smyth # (Auto) 0.5 Eos # (Auto) 0.3 Baso # (Auto) 0.0 Abs Immat Gran (auto) 0.03 Absolute Neuts (auto) 3.9 Absolute Nucleated RBC 0.0 Nucleated RBC % 0.0 Sodium 135 L Potassium 4.2 Chloride 101 Carbon Dioxide 28 Anion Gap 6 L BUN 20 Creatinine 1.10 Estim Creat Clear Calc 105 Estimated GFR > 60 Glucose 106 Calcium 9.2 Magnesium 1.8 Total Bilirubin 0.7 AST 30 ALT 27 Alkaline Phosphatase 89 Total Protein 8.0 Albumin 4.2 Imaging Radiologist's impression: ITS Impressions Chest X-Ray 09/11/23 06:06 Impression: 1: No acute cardiopulmonary disease. Discharge Plan Discharge Attending physician on discharge: Abiel Evans Consulting providers: Jeramy Hartley Discharging Clinician: Abiel Evans Anticipated Discharge Date/Time: 09/12/23 10:54 Patient Disposition: Home, Self-Care Activity: as tolerated Diet: heart healthy Patient Instructions: Antibiotic Form Stand Alone Forms: General Discharge Information Follow-up/Referrals: Jeramy Hartley MD [Physician] - 2 Weeks PHYSICIAN NOT ON STAFF,NONSTAFF [Primary Care Provider] - 1 Week Discharge Medications: New losartan 100 mg Tablet 100 mg PO DAILY
== END 2023-09-12 11:52 | disposition home or self-care (01) ==
LOC: ANHED 04:34 → ANHIMU 07:12
PROVIDERS: Admitting Provider Internal Medicine; Emergency Provider Emergency Medicine; Visit Provider Internal Medicine
DX: I42.9 Cardiomyopathy, unspecified (principal); I16.0 Hypertensive urgency; I10 Essential (primary) hypertension; J45.909 Unspecified asthma, uncomplicated; K76.0 Fatty (change of) liver, not elsewhere classified; R77.8 Other specified abnormalities of plasma proteins; R94.31 Abnormal electrocardiogram [ECG] [EKG]; E66.9 Obesity, unspecified; Z68.42 Body mass index [BMI] 45.0-49.9, adult; F10.90 Alcohol use, unspecified, uncomplicated; Z79.51 Long term (current) use of inhaled steroids; Z82.5 Family history of asthma and other chronic lower respiratory diseases
CPT/HCPCS: 36415; 71045; 80053; 83690; 83735; 83880; 84484; 85025; 85380; 85610; 85730; 93005; 96374; 96376; 99285; A9270; G0378; G0379; J0360

== ENCOUNTER 2023-10-30 04:30 | Emergency (ER) | payer BC, SELFPAY ==
[2023-10-30 04:35] VITALS: BP 189/108; PULSE 67; RESP 20; TEMP 36; O2SAT 100
[2023-10-30 07:15] VITALS: BP 172/116; PULSE 67; RESP 18; O2SAT 96
--- NOTE | 2023-10-30 07:15 | PC.NURSE ---
Report to SUSAN Stephenson. Awaiting ERP eval.
--- NOTE | 2023-10-30 07:15 | ED.RECABL ---
HPI - Recheck/Abnormal Lab/Rx General Chief Complaint: Recheck/Abnormal Lab/Rx Stated Complaint: Med refill,bp meds Time Seen by Provider: 10/30/23 06:54 History of Present Illness HPI narrative: This is a 43-year-old male, with history of hyperlipidemia and hypertension, who presents to emergency department requesting medication refills. The patient states due to a change in his insurance, he was been unable to follow-up with his primary care doctor or refill his medications. He has no acute complaints at this time. He denies headaches, shortness of breath, lower extremity swelling chest pain. Related Data Allergies Allergy/AdvReac Type Severity Reaction Status Date / Time amoxicillin [From Augmentin] Allergy Unknown Verified 10/30/23 07:16 clavulanic acid Allergy Unknown Verified 10/30/23 07:16 [From Augmentin] AMOXICILLIN TRIHYDRATE Allergy Mild Unknown Uncoded 10/30/23 07:16 POTASSIUM CLAVULANATE Allergy Mild Unknown Uncoded 10/30/23 07:16 Review of Systems Review of Systems: CONSTITUTIONAL: Denies fever, chills, or sweats. CARDIOVASCULAR: Denies chest pain, palpitations, or edema. RESPIRATORY: Denies cough or dyspnea. GASTROINTESTINAL: Denies abdominal pain, nausea, vomiting, or diarrhea. GENITOURINARY: Denies dysuria or hematuria. SKIN: Denies rash or itching. MUSCULOSKELETAL: Denies back pain, joint pain, or myalgia. NEUROLOGIC: Denies headache, numbness, dizziness, or weakness. PSYCHIATRIC: Denies anxiety or depression. FORMERLY [facility], [facility] Past Medical History Medical History Asthma Essential hypertension, malignant Hepatic steatosis Kidney stones Left ureteral stone with hydronephrosis April 2021 Obesity BMI of 41.4 10/31/2022 Surgical History Surgical History History of tonsillectomy (~2018) Family History Family History Father , 68 Agent orange exposure Mother Asthma Meningitis Social History Social History Social History: Patient lives with his of 21 years. They have 2 children ages 18 and 19 years old. He very rarely drinks alcohol and only small amounts. 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 Code status: Full code Surrogate decision maker: Smoking status: Never smoker Alcohol intake: never Drinks per week: 1 Alcohol use details: Rare use in small amounts Substance use: never Substance use type: does not use Lack of Transportation: No Lack of Food: Never True Current Housing: I Have Housing Concerned About Future Housing: No Difficulty Paying Gas/Electric Bills: No Difficulty Paying for Meds: No Currently Unemployed: No Education: Decline to Answer Difficulty w/ Childcare or Family Care: No Additional living arrangements comments: Gender identity (if verbalized by the patient): Male Sexual Orientation (if Verbalized by the Patient): Straight or Heterosexual Spiritual care concerns: No Exam Narrative: GENERAL: Well-developed, well-nourished, and in no acute distress. HEAD: Normocephalic, atraumatic. EYES: PERRLA and EOMI. ENT: Nares clear, no rhinorrhea or epistaxis. Mucous membranes moist. Oropharynx without tonsillar hypertrophy exudate or other lesions. Bilateral TMs pearly springer nonbulging NECK: Supple. No adenopathy or masses. No carotid bruits or JVD CHEST: Clear to auscultation. No respiratory distress. No wheezes rales or rhonchi HEART: Regular rate and rhythm. No murmur heard. Normal peripheral pulses. ABDOMEN: Soft, nontender, nondistended, normal active bowel sounds. EXTREMITIES: Normal range of motion. No edema. SKIN: Warm, dry, no rash. NEURO: Alert and oriented x3. No focal deficit. Moving all 4 limbs spontaneously PSYCH: Normal mood and af
[2023-10-30 07:37] VITALS: BP 180/116; PULSE 71; RESP 18; O2SAT 99
== END 2023-10-30 07:37 | disposition home or self-care (01) ==
PROVIDERS: Emergency Provider Preventive Medicine Aerospace Medicine
DX: Z76.0 Encounter for issue of repeat prescription (principal); E78.5 Hyperlipidemia, unspecified; I10 Essential (primary) hypertension
CPT/HCPCS: 99281

== ENCOUNTER 2025-02-05 08:12 | Outpatient (CLI) | payer OTHER, SELFPAY ==
--- OUTSIDE RECORDS SUMMARY | 2025-02-05 08:27 | XMS_ITS | Clinical Summary ---
Author Organization [facility] Address [address] [place] [address] Care Team Providers Care Copy Operator Name Role Phone Alvina Maldonado MD Primary Care Provider [phone] Alvina Maldonado MD Unavailable [phone] [facility],non-owned Affiliates and Associated Physician Practices is amultiple site organization consisting of ambulatory clinics and hospital sitesin [place] and [place]. This disclosure is being madepursuant to the Care Everywhere program and may not contain all information available regarding this patient. Last updated 18.[facility] Allergies Active Allergy Reactions Criticality Noted Date Comments Augmentin Rash Low 01/20/2016 Medications * Be aware that medications may not be up to date on this document. Alwaysverify current medications with the patient. Medication Sig Dispensed Refills Start Date End Date Status ALBUTEROL IN Two puffs as needed Active naproxen (NAPROSYN) 500 MG tablet Take 1 Tab by mouth 2 times daily as needed for Pain 20 Tab 0 01/21/2016 Active predniSONE (DELTASONE) 20 MG tablet Take 2 Tabs by mouth once daily 6 Tab 0 01/26/2016 Active hydrocodone-acetaminop hen (NORCO) 5-325 MG tablet Take 1 Tab by mouth every 6 hours as needed for Pain 15 Tab 0 01/26/2016 Active Social History Tobacco Use Types Packs/Day Years Used Date Smoking Tobacco: Never Smokeless Tobacco: Never Alcohol Use Standard Drinks/Week Comments No 0 (1 standard drink = 0.6 oz pur e alcohol) Sex and Gender Information Value Date Recorded Sex Assigned at Not on file Gender Identity Not on file Sexual Orientation Not on file Last Filed Vital Signs Vital Sign Reading Time Taken Comments Blood Pressure 161/103 07/12/2019 10:00 PM CDT Pulse 78 07/12/2019 10:00 PM CDT Temperature 36.9 C (98.4 F) 07/12/2019 6:41 PM CDT Respiratory Rate 18 07/12/2019 10:00 PM CDT Oxygen Saturation 97% 07/12/2019 10:00 PM CDT Inhaled Oxygen Concentration - - Weight 127 kg (280 lb) 07/12/2019 6:41 PM CDT Height 180 cm (5' 10.87 ) 07/12/2019 6:41 PM CDT Body Mass Index 39.2 07/12/2019 6:41 PM CDT Plan of Treatment Health Maintenance Due Date Last Done Comments LIPID TESTING 1981 HEPATITIS C SCREENING 01/24/1999 DTAP/TDAP/TD VACCINES (1 - Tdap) 01/29/2000 HEPATITIS B VACCINE (1 of 3 - 19+ 3-dose series) 01/29/2000 COVID-19 VACCINE (2023-2 5 season) 2024 INFLUENZA VACCINE (#1) 2024 DEPRESSION SCREENING 11/22/2024 ZOSTER VACCINE (1 of 2) 2031 HIV SCREENING Completed 07/12/2019 HIB VACCINE Aged Out No longer eligi ble based on patient's age to complete this topic HPV VACCINE Aged Out No longer eligi ble based on patient's age to complete this topic MENINGOCOCCAL (Group B) VACC INE SHARED DECISION-MAKING Aged Out No longer eligibl e based on patient's age to complete this topic MENINGOCOCCAL GROUPS A/C/Y/W VACCINE Aged Out No longer eligible b ased on patient's age to complete this topic PNEUMOCOCCAL VACCINE Aged Out No long er eligible based on patient's age to complete this topic Procedures Procedure Name Priority Date/Time Associated Diagnosis Comments HIV-1 HIV-2 ANTIGEN/ANTIBODY STAT 07/12/2019 6:55 PM CDT from Last 3 Months or Most Recently Relevant to Health Maintenance Results * HIV-1 HIV-2 ANTIGEN/ANTIBODY (07/12/2019 6:55 PM CDT) HIV Antigen/Antibod y 1 & 2 Non-reacti ve Non-react daniela 07/12/2019 7:39 PM CDT [facility] Comment: Neither HIV-1 p24 Antigen nor HIV-1/HIV-2 Antibodies are detected. Blood BLOOD SPECIMEN / Unknown Venipuncture / Unknown 07/12/2019 6:55 PM CDT 07/12/2019 7:03 PM CDT Pepper Levi MD LAB - HEMATOLOGY ORD ERABLES [facility] [address] [phone] from Last 3 Months or Most Recently Relevant to Health Maintenance Care Teams Copy Operator Relationship Specialty Start Date End Date Alvina Maldonado MD [address] [address] PCP - General Internal Medicine 01/20/16 Alvina Maldonado MD [address] [address] Internal Medicine 01/20/16
--- OUTSIDE RECORDS SUMMARY | 2025-02-05 08:27 | XMS_ITS | Patient Health Summary ---
Author Organization [facility] Address [address] [place] [address] Care Team Providers Care Finisher Card Tender Name Role Phone Alvina Maldonado MD Primary Care Provider [phone] Alvina Maldonado MD Unavailable [phone] Note from Formerly named [facility],non-owned Affiliates and Associated Physician Practices is amultiple site organization consisting of ambulatory clinics and hospital sitesin [place], [place], [place] and [place]. This disclosure is being madepursuant to the Care Everywhere program and may not contain all information available regarding this patient. Last updated 18.[facility] Allergies * Augmentin(Rash) -Low Criticality Medications * Be aware that medications may not be up to date on this document. Alwaysverify current medications with the patient. * ALBUTEROL IN Two puffs as needed * naproxen (NAPROSYN) 500 MG tablet(Started 01/21/2016) Take 1 Tab by mouth 2 times daily as needed for Pain * predniSONE (DELTASONE) 20 MG tablet(Started 01/26/2016) Take 2 Tabs by mouth once daily * hydrocodone-acetaminophen (NORCO) 5-325 MG tablet(Started 01/26/2016) Take 1 Tab by mouth every 6 hours as needed for Pain Social History Tobacco Use Types Packs/Day Years [...] Mass Index 39.2 07/12/2019 6:41 PM CDT Procedures * LDH BLOOD(Performed 07/12/2019) * LACTIC ACID BLOOD(Performed 07/12/2019) * URINALYSIS W/MICROSCOPIC NO CULTURE(Performed 07/12/2019) * CT ABDOMEN PELVIS W CONTRAST(Performed 07/12/2019) Performed for Abdominal pain, generalized * HIV-1 HIV-2 ANTIGEN/ANTIBODY(Performed 07/12/2019) * COMPREHENSIVE METABOLIC PANEL(Performed 07/12/2019) * CBC W AUTO DIFFERENTIAL(Performed 07/12/2019) * CT NECK SOFT TISSUE W CONT(Performed 01/26/2016) * MAGNESIUM BLOOD(Performed 01/26/2016) * COMPREHENSIVE METABOLIC PANEL(Performed 01/26/2016) * CBC W AUTO DIFFERENTIAL(Performed 01/26/2016) * PATHOLOGY/CYTOLOGY REPORT ORDER(Performed 01/21/2016) * PATHOLOGY TISSUE EXAM (STL)(Performed 01/20/2016) Performed for Chronic tonsillitis Results * (ABNORMAL) LDH BLOOD (07/12/2019 8:12 PM CDT) LDH Total 345(H) 125 - 243 Units/L 07/12/2019 8:28 PM CDT [facility] Blood BLOOD SPECIMEN / Unknown Venipuncture / Unknown 07/12/2019 8:12 PM CDT 07/12/2019 8:12 PM CDT Omari Sullivan MD LAB - CHEMISTRY [place] [address] [phone] * LACTIC ACID BLOOD (07/12/2019 8:12 PM CDT) Lactic Acid-Stat 1.7 0.5 - 2.0 mmol/L 07/12/2019 8:25 PM [facility] Blood BLOOD SPECIMEN / Unknown Venipuncture / Unknown 07/12/2019 8:12 PM CDT 07/12/2019 8:12 PM CDT Omari Sullivan MD LAB - CHEMISTRY [place] [facility] Organization Address City/State/ZIP Co de Phone Number [address] [phone] * URINALYSIS W/MICROSCOPIC NO CULTURE (07/12/2019 8:11 PM CDT) Pathologist [facility] Color UA Yellow Straw, Yellow, Colorless 07/12/2019 8:19 PM [facility] Clarity UA Clear Clear, Slt Cloudy 07/12/2019 8:19 PM [facility] Specific [place] UA 1.017 1.005 - 1.030 07/12/2019 8:19 PM [facility] pH UA 6.0 5.0 - 8.0 pH 07/12/2019 8:19 PM [facility] Protein UA Negative Negative mg/dL 07/12/2019 8:19 PM [facility] Glucose UA Negative Negative mg/dL 07/12/2019 8:19 PM [facility] Ketone UA Negative Negative mg/dL 07/12/2019 8:19 PM [facility] Bilirubin UA Negative Negative mg/dL 07/12/2019 8:19 PM [facility] Blood UA Negative Negative 07/12/2019 8:19 PM [facility] Nitrite UA Negative Negative 07/12/2019 8:19 PM [facility] Leukocyte Esterase Negative Negative 07/12/2019 8:19 PM [facility] Urobilinogen UA Negative Negative mg/dL 07/12/2019 8:19 PM [facility] RBC UA 0-2 None Seen, 0-2, 3-5 /HPF 07/12/2019 8:19 PM [facility] WBC UA 0-5 None Seen, 0-5 /HPF 07/12/2019 8:19 PM CDT [facility] Squamous Epithelial Cells UA 0-2 None Seen, 0-2 /HPF 07/12/2019 8:19 PM CDT [facility] Mucus UA 1+ None, 1+ /LPF 07/12/2019 8:19 PM CDT [facility] Urine URINE SPECIMEN OBTAINED BY CLEAN CATCH PROCEDURE / Unknown Collection / Unknown 07/12/2019 8:11 PM CDT 07/12/2019 8:11 PM CDT Narrative [facility] - 07/12/2019 8:19 PM CDT Omari Sullivan MD LAB - URINALYSIS ORD ERABLES [address] [phone] * CT ABDOMEN PELVIS W CONTRAST (07/12/2019 8:07 PM CDT) Anatomical Region Laterality Modality Abdomen, Pelvis Computed Tomogra phy 07/12/2019 8:31 PM CDT Impressions 07/13/2019 9:00 AM CDT IMPRESSION: 1. A small fluid and fat-containing umbilical hernia may be the source for patient's periumbilical pain. No other acute process in the abdomen or pelvis is seen. 2. A 2 mm nonobstructing left renal calculus is present. Dictated by Steve Manning MD (vice president of marketing). I, Dr. Jeremiah LANZA M.D. have personally reviewed and interpreted this examination/study. This report was electronically signed by Jeremiah LANZA M.D. on 07/13/2019 9:00 AM . Narrative 07/13/2019 9:00 AM CDT EXAMINATION: Computed tomography (CT) of the abdomen and pelvis with contrast HISTORY: severe periumbilical pain, sudden onset TECHNIQUE: CT of the abdomen and pelvis was performed following the uneventful administration of 100 mL of Isovue 370 intravenous contrast according to standard protocol. COMPARISON: No prior study is available for comparison. FINDINGS: The aorta is normal in course and caliber. The visible lung bases are clear. The heart size is normal without pericardial effusion. The liver is diffusely hypoattenuating consistent with diffuse hepatic steatosis. Otherwise the liver enhances homogenously. The gallbladder is normal without evidence of wall thickening, pericholecystic fluid, or gallstones. The intrahepatic and extrahepatic bile ducts are nondilated. The spleen enhances homogenously without focal lesion. The pancreas and adrenal glands are normal. The kidneys enhance symmetrically. A 2 mm nonobstructing left renal calculus is noted. There is no hydronephrosis. A retroaortic left renal vein is seen. The distal esophagus and stomach appear normal. The small bowel and large bowel are normal in caliber without evidence of wall thickening or obstruction. The appendix appears normal without appendicolith or surrounding inflammatory changes. No free air or free fluid is identified within the abdomen. There is no abdominal lymphadenopathy. A small fat and 1.9 x 2.0 cm fluid containing umbilical hernia is noted. The fluid does not show any significant rim enhancement. The urinary bladder is nondistended and appears normal. The prostate is normal. No free fluid is seen within the pelvis. There is no pelvic lymphadenopathy. Bone windows demonstrate no suspicious lytic or blastic lesions. The visible osseous structures are intact. Procedure Note Jodi Lanza MD - 07/13/2019 EXAMINATION: Computed tomography (CT) of the abdomen and pelvis with contrast HISTORY: severe periumbilical pain, sudden onset TECHNIQUE: CT of the abdomen and pelvis was performed following the uneventful administration of 100 mL of Isovue 370 intravenous contrast according to standard protocol. COMPARISON: No prior study is available for comparison. FINDINGS: The aorta is normal in course and caliber. The visible lung bases are clear. The heart size is normal without pericardial effusion. The liver is diffusely hypoattenuating consistent with diffuse hepatic steatosis. Otherwise the liver enhances homogenously. The gallbladder is normal without evidence of wall thickening, pericholecystic fluid, or gallstones. The intrahepatic and extrahepatic bile ducts are nondilated. The spleen enhances homogenously without focal lesion. The pancreas and adrenal glands are normal. The kidneys enhance symmetrically. A 2 mm nonobstructing left renal calculus is noted. There is no hydronephrosis.A retroaortic left renal vein is seen. The distal esophagus and stomach appear normal. The small bowel andlarge bowel are normal in caliber without evidence of wall thickening or obstruction. The appendix appears normal without appendicolith or surrounding inflammatory changes. No free air or free fluid isidentified within the abdomen. There is no abdominal lymphadenopathy. A small fatand 1.9 x 2.0 cm fluid containing umbilical hernia is noted. The fluid does not show any significant rim enhancement. The urinary bladder is nondistended and appears normal. The prostate is normal. No free fluid is seen within the pelvis. There is no pelvic lymphadenopathy. Bone windows demonstrate no suspicious lytic or blastic lesions. The visible osseous structures are intact. IMPRESSION: 1. A small fluid and fat-containing umbilical hernia may be the sourcefor patient's periumbilical pain. No other acute process in the abdomen or pelvis is seen. 2. A 2 mm nonobstructing left renal calculus is present. Dictated by Steve Manning MD (vice president of marketing). I, Dr. Jeremiah LANZA M.D. have personally reviewed and interpretedthis examination/study. This report was electronically signed by Jeremiah LANZA M.D. on 07/13/2019 9:00 AM . Omari Sullivan MD CT ORDERABLES * HIV-1 HIV-2 ANTIGEN/ANTIBODY (07/12/2019 6:55 PM CDT) HIV Antigen/Antibod y 1 & 2 Non-reacti ve Non-react daniela 07/12/2019 7:39 PM CDT [facility] Comment: Neither HIV-1 p24 Antigen nor HIV-1/HIV-2 Antibodies are detected. Blood BLOOD SPECIMEN / Unknown Venipuncture / Unknown 07/12/2019 6:55 PM CDT 07/12/2019 7:03 PM CDT Pepper Levi MD LAB - HEMATOLOGY ORD ERABLES [facility] [address] [phone] * (ABNORMAL) CBC W AUTO DIFFERENTIAL (07/12/2019 6:53 PM CDT) Only the most recent of2 resultswithin the time period is included. WBC 14.0(H) 3.5 - 10.5 10 3/uL 07/12/2019 7:07 PM [facility] RBC 4.88 4.30 - 5.70 10 6/uL 07/12/2019 7:07 PM [facility] Hemoglobin 15.0 13.5 - 17.5 g/dL 07/12/2019 7:07 PM [facility] Hematocrit 44.4 39.0 - 50.0 % 07/12/2019 7:07 PM [facility] MCV 91.0 81.0 - 97.0 fL 07/12/2019 7:07 PM [facility] MCH 30.7 28.0 - 34.0 pg 07/12/2019 7:07 PM [facility] MCHC 33.8 32.0 - 36.0 g/dL 07/12/2019 7:07 PM [facility] Platelet Count 273 150 - 400 10 3/uL 07/12/2019 7:07 PM [facility] RDW-SD 38.5 36.0 - 50.0 fL 07/12/2019 7:07 PM [facility] RDW-CV 11.6 11.2 - 14.8 % 07/12/2019 7:07 PM [facility] MPV 10.0 9.3 - 12.8 fL 07/12/2019 7:07 PM [facility] nRBC Absolute 0.00 0 10 3/uL 07/12/2019 7:07 PM [facility] nRBC Auto 0.0 0 /100 WBC 07/12/2019 7:07 PM [facility] Neutrophils % 79.8(H) 35.0 - 70.0 % 07/12/2019 7:07 PM [facility] Lymphocytes % 13.4(L) 19.7 - 55.1 % 07/12/2019 7:07 PM [facility] Monocytes % 4.8 3.0 - 15.0 % 07/12/2019 7:07 PM [facility] Eosinophils % 1.4 0.0 - 6.0 % 07/12/2019 7:07 PM [facility] Basophil % 0.2 0.0 - 1.5 % 07/12/2019 7:07 PM [facility] Neutrophils Absolute 11.1(H) 1.6 - 7.0 10 3/uL 07/12/2019 7:07 PM [facility] Lymphocyte Absolute 1.9 0.8 - 2.9 10 3/uL 07/12/2019 7:07 PM [facility] Monocytes Absolute 0.67(H) 0.14 - 0.66 10 3/uL 07/12/2019 7:07 PM [facility] Eosinophils Absolute 0.19 0.00 - 0.45 10 3/uL 07/12/2019 7:07 PM [facility] Basophils Absolute 0.03 0.00 - 0.06 10 3/uL 07/12/2019 7:07 PM [facility] Immature Granulocytes % 0.4 0.0 - 1.0 % 07/12/2019 7:07 PM [facility] Blood BLOOD SPECIMEN / Unknown Venipuncture / Unknown 07/12/2019 6:53 PM CDT 07/12/2019 7:03 PM CDT Beba Meyer PA-C LAB - HEMATOLOGY ORDERABLES [facility] [address] [place] [address] * (ABNORMAL) COMPREHENSIVE METABOLIC PANEL (07/12/2019 6:53 PM CDT) Only the most recent of2 resultswithin the time period is included. BUN 12 7 - 26 mg/dL 07/12/2019 7:20 PM [facility] Creatinine 1.1 0.6 - 1.2 mg/dL 07/12/2019 7:20 PM [facility] Sodium 142 136 - 145 mmol/L 07/12/2019 7:20 PM [facility] Potassium 4.1 3.5 - 4.5 mmol/L 07/12/2019 7:20 PM [facility] Chloride 103 98 - 107 mmol/L 07/12/2019 7:20 PM [facility] CO2 28 22 - 29 mmol/L 07/12/2019 7:20 PM [facility] Glucose 107 70 - 115 mg/dL 07/12/2019 7:20 PM [facility] Calcium 10.0 8.4 - 10.2 mg/dL 07/12/2019 7:20 PM [facility] Protein Total 8.6(H) 6.0 - 8.3 g/dL 07/12/2019 7:20 PM [facility] Albumin 4.7 3.4 - 5.0 g/dL 07/12/2019 7:20 PM [facility] Bilirubin Total 0.4 0.2 - 1.2 mg/dL 07/12/2019 7:20 PM [facility] Alkaline Phosphatase 99 40 - 150 Units/L 07/12/2019 7:20 PM [facility] ALT 36 0 - 55 Units/L 07/12/2019 7:20 PM [facility] AST 35(H) 5 - 34 Units/L 07/12/2019 7:20 PM [facility] Anion Gap 15 8 - 18 07/12/2019 7:20 PM [facility] BUN/Creatinine Ratio 11 7 - 23 07/12/2019 7:20 PM [facility] Osmolality Calculated 294 270 - 300 mOsm/kg 07/12/2019 7:20 PM [facility] Albumin/Globulin Ratio 1.2 1.1 - 2.3 07/12/2019 7:20 PM [facility] eGFR >60 >60 mL/min/1.7 3 m2 07/12/2019 7:20 PM [facility] Blood BLOOD SPECIMEN / Unknown Venipuncture / Unknown 07/12/2019 6:53 PM CDT 07/12/2019 7:03 PM T Beba Meyer PA-C LAB - CHEMISTRY ORDERABLES [facility] [address] [phone] * CT SOFT TISSUE NECK WITH CONTRAST (01/26/2016 7:57 PM BAR CATCHER) Anatomical Region Laterality Modality Head Computed Tomogra phy 01/26/2016 8:02 PM BAR CATCHER Impressions 01/26/2016 8:06 PM BAR CATCHER No retropharyngeal fluid collection or airway compromise. Trace right more so than left tonsillar pillar bed gas consistent with the expected appearance status post recent tonsillectomy without fluid pocket suggesting abscess or asymmetric edema. Narrative 01/26/2016 8:[address] Neck With Contrast INDICATION: Difficulty swallowing. Head tonsils out on Wednesday. Cannot swallow TECHNIQUE: Axial CT imaging from the skull base to the lung apices was performed following Omnipaque 350 80 cc intravenous contrast administration. FINDINGS: No maxillary sinus fluid levels. There is a trace amount of gas in the bed of the right palatine tonsil. The airway is widely patent. No retropharyngeal soft tissue swelling. The parapharyngeal fat planes are symmetric. The epiglottis is not thickened. The area epiglottic folds as well as true/false vocal folds minimal thickening suggesting some mild edema. The piriform sinuses are symmetric. Reactive size bilateral level II lymph nodes. The lung apices are clear. The bony structures are normal. Procedure Note Owen Aponte MD - 01/26/2016 CT Neck With Contrast INDICATION: Difficulty swallowing. Head tonsils out on Wednesday. Cannot swallow TECHNIQUE: Axial CT imaging from the skull base to the lung apices was performed following Omnipaque 350 80 cc intravenous contrast administration. FINDINGS: No maxillary sinus fluid levels. There is a trace amount of gas in the bed of the right palatine tonsil. The airway is widely patent. No retropharyngeal soft tissue swelling. The parapharyngeal fat planes are symmetric. The epiglottis is not thickened. The area epiglottic folds as well as true/false vocal folds minimal thickening suggesting some mild edema. The piriform sinuses are symmetric. Reactive size bilateral level II lymph nodes. The lung apices are clear. The bony structures are normal. IMPRESSION No retropharyngeal fluid collection or airway compromise. Trace right more so than left tonsillar pillar bed gas consistent with the expected appearance status post recent tonsillectomy without fluid pocket suggesting abscess or asymmetric edema. Owen Gallardo DO CT ORDERABLES * MAGNESIUM BLOOD (01/26/2016 7:16 PM BAR CATCHER) Magnesium 2.1 1.6 - 2.6 mg/dL 01/26/2016 7:40 PM BAR CATCHER [facility] Blood BLOOD SPECIMEN / Unknown Venipuncture / Unknown 01/26/2016 7:16 PM BAR CATCHER 01/26/2016 7:22 PM BAR CATCHER Owen Master Gallardo DO LAB - CHEMISTRY [place] [facility] Organization Address City/State/ZIP Co de Phone Number [facility] [address] [place] [address] * PATHOLOGY/CYTOLOGY REPORT ORDER (01/21/2016 6:17 PM BAR CATCHER) Narrative 01/21/2016 6:17 PM BAR CATCHER Ordered by an unspecified provider. Scanned Document LAB - PATHOLOGY/CYTO LOGY ORDERABLES * GROSS + MICRO EXAM (STL) (01/20/2016 8:45 AM BAR CATCHER) Case Report Surgical Pathology Report Case: [id number] Authorizing Provider: Epi Taylor MD Collected: 01/20/2016 08:45 AM Ordering Location: [facility] Received: 01/20/2016 03:50 PM Pathologist: Tarah Beth MD Specimens: A) - Tonsil(s), Left Tonsil B) - Tonsil(s), Right Tonsil 01/22/2016 4:50 PM BAR CATCHER [facility] Final Diagnosis Tonsil, right, tonsillectomy: - Follicular lymphoid hyperplasia Tonsil, left, tonsillectomy: - Follicular lymphoid hyperplasia KL/selin 01/22/2016 4:50 PM BAR CATCHER [facility] Gross Description Received are two containers each labeled Gerson Navarrete. Container 1 is labeled as right tonsil marked with pin. The container holds a 4 x 3.2 x 2.5 cm right tonsil with the safety pin. The tonsil is covered by a samson convoluted squamous mucosa overlying a pink-samson grossly unremarkable soft tissue. Dry Wall Sprayer sections are submitted in cassettes A1 and A2. Container 2 is labeled as left tonsil per data sheet. The container holds a 4.5 x 3.5 x 2 cm pink-samson tonsil. The tonsil is covered by a samson convoluted squamous mucosa overlying a pink-samson grossly unremarkable soft tissue. Dry Wall Sprayer sections are submitted in cassettes B1 and B2. DYT/an 01/22/2016 4:50 PM BAR CATCHER [facility] Microscopic Description Histologic sections of the bilateral tonsils show benign follicular lymphoid hyperplasia. There is no evidence of malignancy. KL/selin 01/22/2016 4:50 PM BAR CATCHER [facility] Pathology/Cytology SPECIMEN FROM TONSIL / Unknown 01/20/2016 8:45 AM BAR CATCHER 01/20/2016 3:50 PM BAR CATCHER Miscellaneous samples (specimen) SPECIMEN FROM TONSIL / Unknown 01/20/2016 8:45 AM BAR CATCHER 01/20/2016 3:50 PM BAR CATCHER Epi Taylor MD LAB - PATHOLOGY/C YTOLOGY ORDERABLES Performing Organization Address [facility]/State/[facility] Co de Phone Number [facility] [address] [place] [address] Care Teams Finisher Card Tender Relationship Specialty Start Date End Date Alvina Maldonado MD [address] [phone] PCP - General Internal Medicine 01/20/16 Alvina Maldonado MD [address] [phone] Internal Medicine 01/20/16
--- OUTSIDE RECORDS SUMMARY | 2025-02-05 08:27 | XMS_ITS | Continuity of Care Document ---
Author Organization [facility] Address [address] [facility] [address] [place] [address] Phone Care Team Providers Care Syrup Mixer Helper Name Role Phone Iggy Robertson Unavailable Unavailable Procedures Procedure Date Office Consultation Ophthalmoscopy Ophthalmoscopy Advance Directives Directive Yes / No Effective Date File Name No Information Encounters Encounter Description Practice Location Reason(s) For Visit Diagnoses Date Provider Providers Copied on Encounter Office Consultation [facility], [address] [place], [place], [id number], [place] tel:[phone] [facility] No Information [address] [place], [address], [place]. tel:[phone] Referring Provider: Lindsay Cruz, [address], [place], [address]. tel:[phone] Family History Family Member Type Diagnosis Age At Onset No Information Payers Payer name Insurance type Covered alliance party ID Authoriza tion(s) [facility] [id number] Social History Type Description Quantity Date Captured Comments Sex Male Smoking Status No Information Chief Complaint And Reason For Visit No Information Reason For Referral Reason For Referral No Information History Of Present Illness Encounter Date Complaint History Of Prese nt Illness No Information Functional Status Date Functional Assessmen t No Information Instructions Date Instruction Additional Infor mation No Information Assessments Type Assessment Date No Information Patient Care Teams Name Effective Dates (start - stop) Status Members No Information
--- OUTSIDE RECORDS SUMMARY | 2025-02-05 08:27 | XMS_ITS | Referral Summary ---
Author Organization [facility] Address [address] [place] [address] Care Team Providers Care Metal Fabricator Helper Name Role Phone Alvina Maldonado MD Primary Care Provider [phone] Alvina Maldonado MD Unavailable [phone] Source Comments [facility],non-owned Affiliates and Associated Physician Practices is amultiple site organization consisting of ambulatory clinics and hospital sitesin [place], [place], [place]. This disclosure is being madepursuant to the Care Everywhere program and may not contain all information available regarding this patient. Last updated 18.[facility] Allergies Active Allergy Reactions Criticality Noted Date [...] 07/12/2019 6:41 PM CDT Plan of Treatment Not on file Procedures Procedure Name Priority Date/Time Associated Diagnosis Comments HIV-1 HIV-2 ANTIGEN/ANTIBODY STAT 07/12/2019 6:55 PM CDT from Last 3 Months or Most Recently Relevant to Health Maintenance Results * HIV-1 HIV-2 ANTIGEN/ANTIBODY (07/12/2019 6:55 PM CDT) HIV Antigen/Antibod y 1 & 2 Non-reacti ve Non-react daniela 07/12/2019 7:39 PM CDT [facility] Comment: Neither HIV-1 p24 Antigen nor HIV-1/HIV-2 Antibodies are detected. Blood BLOOD SPECIMEN / Unknown Venipuncture / Unknown 07/12/2019 6:55 PM CDT 07/12/2019 7:03 PM CDT Pepper Levi MD LAB - HEMATOLOGY ORD ERABLES [facility] [address] [phone] from Last 3 Months or Most Recently Relevant to Health Maintenance Care Teams Metal Fabricator Helper Relationship Specialty Start Date End Date Alvina Maldonado MD [address] [address] PCP - General Internal Medicine 01/20/16 Alvina Maldonado MD [address] [address] Internal Medicine 01/20/16
--- OUTSIDE RECORDS SUMMARY | 2025-02-05 08:27 | XMS_ITS | Data Portability ---
Author Organization [place] [facility] [employer], Main Office Address [address] [place] [address] Assessment No assessment recorded. Plan of Treatment Reminders Order Date Submit Date Provider Last Modified By Organization Details Last Modified Time Details Appointments Follow Up 15 2024 09:15A WM Haile Not available Not available Not available Lab hepatitis panel (A+B+C), acute, serum [address] (Lab), [address] [place], [address], 01/08/2025 11:38:25 gamma-glu tamyl transfera se (ggt), serum [address] (Lab), [address] [place], [address], 01/08/2025 11:38:26 amylase, serum or plasma [address] (Lab), [address] [place], [address], 01/08/2025 11:38:26 hepatitis C virus Ab, serum [address] (Lab), [address] [place], [address], 01/08/2025 11:38:26 CMP, serum or plasma [address] (Lab), [address] [place], [address], 01/08/2025 11:38:26 lipase, serum or plasma [address] (Lab), [address] [place], [address], 01/08/2025 11:38:26 hepatitis panel (A+B+C), acute, serum [address] (Lab), [address] [place], [address], 12/11/2024 10:00:42 gamma-glu tamyl transfera se (ggt), serum [address] (Lab), [address] [place], [address], 12/11/2024 10:00:42 amylase, serum or plasma [address] (Lab), [address] [place], [address], 12/11/2024 10:00:42 hepatitis C virus Ab, serum [address] (Lab), [address] [place], [address], 12/11/2024 10:00:42 lipase, serum or plasma [address] (Lab), [address] [place], [address], 12/11/2024 10:00:42 CMP, serum or plasma [address] (Lab), [address] [place], [address], 12/11/2024 10:00:43 PSA, serum or plasma [address] (Lab), [address] [place], [address], 10/10/2024 08:29:58 vitamin D, 25-hydrox y, total, serum [address] (Lab), [address] [place], [address], 10/10/2024 08:29:57 lipid panel, serum 2023 024 [facility] (Lab), [address] [place], [address], 10/03/2024 18:55:35 CMP, serum or plasma 2023 024 [facility] (Lab), [address] [place], [address], 10/03/2024 18:55:35 CK (creatine kinase), total, serum [address] (Lab), [address] [place], [address], 10/10/2024 08:29:58 CBC w/ auto diff [address] (Lab), [address] [place], [address], 10/10/2024 08:29:58 TSH, serum or plasma 2023 024 [facility] (Lab), [address] [place], [address], 10/03/2024 18:55:35 glycohemo globin, total, blood [address] (Lab), [address] [place], [address], 10/10/2024 08:29:58 glycohemo globin, total, blood [address] (Lab), [address] [place], [address], 11/23/2023 16:22:21 vitamin B12 + folate, serum or blood [address] (Lab), [address] [place], [address], 11/23/2023 16:22:21 vitamin D, 25-hydrox y, total, serum [address] (Lab), [address] [place], [address], 11/23/2023 16:22:21 magnesium , serum or plasma [address] (Lab), [address] [place], [address], 11/23/2023 16:22:21 lipid panel, serum 2022 023 [facility] (Lab), [address] [place], [address], 11/19/2023 01:37:53 CMP, serum or plasma [address] (Lab), [address] [place], [address], 11/23/2023 16:22:20 CK (creatine kinase), total, serum [address] (Lab), [address] [place], [address], 11/23/2023 16:22:20 unlisted lab - free thyroxine w/TSH [address] (Lab), [address] [place], [address], 11/23/2023 16:22:20 CBC w/ auto diff 2022 023 [facility] (Lab), [address] [place], [address], 11/23/2023 16:22:21 Referral None recorded. Procedures None recorded. Surgeries None recorded. Imaging US, liver [address] (Imaging), [address] [facility] [address], [place], [address], 01/01/2025 11:32:01 US, liver [address] (Imaging), [address] [facility] [address], [place], [address], 12/18/2024 17:23:00 Medication Orders cholecalc iferol (vitamin D3) 1,250 mcg (50,000 unit) capsule 2024 025 [facility]49545, [address] [place], [place], [id number], 12/04/2024 12:01:59 losartan 100 mg tablet 2024 025 [facility] #04827, [address] [place], [place], [id number], 12/04/2024 12:08:05 amlodipin e 5 mg tablet 2024 025 [facility]47861, [address] [facility], [place], [place], [id number], 12/04/2024 12:08:04 ibuprofen 800 mg tablet 2024 025 [facility] #47657, [address] [facility], [place], [place], [id number], 12/04/2024 12:08:06 ibuprofen 800 mg tablet 2023 024 [facility] #99274, [address] , [place], [place], [id number], 10/03/2024 11:31:59 spironola ctone 25 mg tablet 2023 024 [facility] #06755, [address] , [place], [place], [id number], 10/03/2024 11:19:09 losartan 100 mg tablet 2023 024 [facility] #06775, [address] , [place], [place], [id number], 10/03/2024 11:19:10 carvedilo l 12.5 mg tablet [email or web address] [place] [address] [facility] #49627, [address] , [place], [place], [id number], 10/04/2024 15:30:13 Vitamin D3 50 mcg (2,000 unit) capsule 2023 024 [facility] #25360, [address] , [place], [place], [id number], 12/01/2023 10:22:55 carvedilo l 12.5 mg tablet 2022 023 [facility] #67081, [address] , [place], [place], [id number], 11/03/2023 10:36:43 losartan 100 mg tablet 2022 023 [facility] #33398, [address] , [place], [place], [id number], 11/03/2023 10:36:45 spironola ctone 25 mg tablet 2022 023 [facility] #08983, [address], [place], [place], [id number], 11/03/2023 10:36:31 atorvasta tin 40 mg tablet 2022 023 [email or web address]70[facility], [address], [place], [place], [id number], 12/04/2024 12:08:27 aspirin 81 mg chewable tablet 2022 023 [facility] #97063, [address], [place], [place], [id number], 11/03/2023 10:36:28 Patient TargetsNo targets recorded. Patient Instructions Encounter Date Encounter Id Patient Instructions Last Modified By Organization Details Last Modified Time 11/03/2023 [id number] get BP hecked here in 2 days , go to ED if light headed [email or web address] Not available 11/15/2023 15:42:46 10/03/2024 [id number] recheck BP on own [email or web address] Not avai lable 10/25/2024 15:06:03 12/04/2024 [id number] recheck BP here tomorrow when he brings his son [email or web address] Not available 12/11/2024 17:39:43 Reason for Referral None Reported. Results Created Date Observation Date Name Description Value Unit Range Abnormal Flag Note LastModifiedBy Organization Detail LastModifiedTime Result Notes None recorded. Problems Name Problem SNOMED Code Status Onset Date Resolution Date Notes Provider Name and Address Organization Details Recorded Time Essential hypertensio n 90987882 Active 2022 WM العراقي [address], [place], [address], [facility] 3 10:20:42 Hyperlipide jayesh 11210466 Active 2022 WM العراقي [address], [address], [place], [address], [facility] 3 10:34:54 Obese 592604517 Active 2022 WM العراقي [address], [address], [place], [address], [facility] 3 10:37:54 At increased risk of nutritional deficit 928446920 Active 2022 WM العراقي [address], [address], [place], [address], [facility] 3 10:38:29 Vitamin D deficiency 38108369 Active 2023 WM العراقي [address], [address], [place], [address], [facility] 4 10:21:36 Asthma 449155910 Active 2023 Kyle Hubbard RN null, [email or web address] 4 14:17:05 Pain of right knee region 3956259809134 05 Active 2023 WM العراقي [address], [address], [place], [address], [facility] 4 11:13:55 Screening for malignant neoplasm of prostate Active 2023 WM العراقي [address], [address], [place], [address], [employer] 4 11:16:19 Adult health examination Active 2023 WM العراقي [address], [address], [place], [address], [facility] 4 15:04:42 Liver enzymes level above reference range 824355956 Active 2024 WM العراقي [address], [address], [place], [address], [employer] 5 12:09:10 Notes:his has MS, can't work Some problems listed in Documents: #[id number], #[id number], #[id number] could not be added to this patient's chart. Please review these documents and add these problems to the patient's chart manually as needed. Problem Notes None recorded. Procedures Surgical History Date Name Laterality Status Provider Name and Address Organization Details Recorded Time tonsillectomy completed Sunita Wray MA [facility] 11/03/2023 10:08:33 Imaging Results None recorded. Procedure Notes None recorded. Medical Equipment None Reported. Allergies Allergen ID Allergen Name Allergen Category Reaction Reaction Severity Criticality Documentation Date Start Date Code Code System Note Provider Name and Address Organization Details Recorded Time 42497 Augmentin medicatio n hives Not available [facility] 11/03/2023 01435 2 RxNorm Sunita Wray MA [facility], [facility] 10:02:30 Medications Name Sig Start Date Stop Date Status Note LastModified by Organization Details LastModified Time cyclobenzapr ine 10 mg tablet TAKE 1 TABLET BY MOUTH EVERY 8 HOURS FOR 7 DAYS NEEDED FOR MUSCLE SPASM 11/03 completed Not Available Not Available Not Available atorvastatin 40 mg tablet TAKE 1 TABLET BY MOUTH EVERY DAY IN THE MORNING active Not Available Not Available No t Available carvedilol 12.5 mg tablet TAKE 1 TABLET BY MOUTH TWICE DAILY active Not Available Not Available No t Available ibuprofen 800 mg tablet TAKE 1 TABLET BY MOUTH THREE TIMES DAILY WITH FOOD active Not Available Not Available No t Available amlodipine 5 mg tablet TAKE 1 TABLET BY MOUTH EVERY DAY IN THE MORNING active Not Available Not Available No t Available aspirin 81 mg tablet,delay ed release TAKE 1 TABLET BY MOUTH EVERY MORNING 10/03 completed Not Available Not Available Not Available spironolacto ne 25 mg tablet TAKE 1 TABLET BY MOUTH EVERY DAY IN THE MORNING active Not Available Not Available No t Available lisinopril 10 mg tablet TAKE 1 TABLET BY MOUTH DAILY 11/03 completed Not Available Not Available Not Available aspirin 81 mg chewable tablet CHEW AND SWALLOW 1 TABLET BY MOUTH EVERY DAY IN THE MORNING active Not Available Not Available No t Available albuterol sulfate HFA 90 mcg/actuatio n aerosol inhaler INHALE 2 PUFFS BY MOUTH EVERY 4 TO 6 HOURS NEEDED active Not Available Not Available No t Available losartan 100 mg tablet TAKE 1 TABLET BY MOUTH EVERY DAY IN THE MORNING active Not Available Not Available No t Available cholecalcife rol (vitamin D3) 1,250 mcg (50,000 unit) capsule TAKE 1 CAPSULE BY MOUTH EVERY WEEK active Not Available Not Available No t Available Vitamin D3 50 mcg (2,000 unit) capsule Take 1 capsule every day by oral route with meal(s) for 90 days. 2023 active Not Available Not Available Not Avai labwes Jardiance 10 mg tablet TAKE 1 TABLET BY MOUTH DAILY 10/03 completed Not Available Not Available Not Available Vitals Date Recorded Body weight Body temperature Heart rate Oxygen saturation Oxygen saturation in Arterial blood by Pulse oximetry Systolic blood pressure Diastolic blood pressure Provider Name and Address Organization Details Last Updated DateTime 3 841503. 56 g 97.9 [degF] 84 /min 97 % 97 % 192 mm[Hg] 120 mm[Hg] Sunita Wray MA [facility] [employer] 3 10:01:59 Date Recorded Body weight Body temperature Heart rate Oxygen saturation Oxygen saturation in Arterial blood by Pulse oximetry Systolic blood pressure Diastolic blood pressure Provider Name and Address Organization Details Last Updated DateTime 4 881061. 56 g 97 [degF] 78 /min 98 % 98 % 176 mm[Hg] 112 mm[Hg] Sunita Wray MA [place] [facility] [employer] 4 10:09:18 Date Recorded Body weight Body mass index (BMI) Body height Body temperature Heart rate Oxygen saturation Oxygen saturation in Arterial blood by Pulse oximetry Systolic blood pressure Diastolic blood pressure Provider Name and Address Organization Details Last Updated DateTime 4 948113. 93 g 46.5 kg/m2 177.8 cm 98.1 [degF] 85 /min 95 % 95 % 144 mm[Hg] 110 mm[Hg] Nohemy Chung RN [facility] [employer] 4 10:53:33 Date Recorded Body height Body temperature Oxygen saturation Oxygen saturation in Arterial blood by Pulse oximetry Heart rate Body mass index (BMI) Body weight Systolic blood pressure Diastolic blood pressure Provider Name and Address Organization Details Last Updated DateTime 5 177.8 cm 97.7 [degF] 97 % 97 % 86 /min 46.9 kg/m2 647725. 63 g 148 mm[Hg] 110 mm[Hg] Kyle Hubbard RN [facility] [employer] 11:53:39 Date Recorded Body height Body mass index (BMI) Body weight Body temperature Heart rate Respiratory rate Oxygen saturation Oxygen saturation in Arterial blood by Pulse oximetry Systolic blood pressure Diastolic blood pressure Provider Name and Address Organization Details Last Updated DateTime 5 177.8 cm 46.4 kg/m2 698365. 77 g 98 [degF] 98 /min 16 /min 98 % 98 % 130 mm[Hg] 90 mm[Hg] Sisi Cotter [facility] [employer] 5 10:59:29 Social History Question Answer Notes LastModified by [employer] ion Details LastModified Time Tobacco Smoking Status Never Smoker SHANIKA Baptiste, [facility] [place] [facility] 11/03/2023 10:07:25 What Is Your Level Of Alcohol Consumption? Occasional Information not available 11/03/2023 What Is Your Level Of Caffeine Consumption? None [email or web address] Information not available 11/03/2023 Do You Use Your Seat Belt Or Car Seat Routinely? Yes [email or web address] Information not available 11/03/2023 Do You Participate In Social Media? No [email or web address] Information not available 11/03/2023 Do You Feel Stressed (tense, Restless, Nervous, Or Anxious, Or Unable To Sleep At Night)? [id number] [email or web address] Information not available 11/03/2023 Do You Use Any Illicit Or Recreational Drugs? No [email or web address] Information not available 11/03/2023 Do You Or Have You Ever Used Any Other Forms Of Tobacco Or Nicotine? No [email or web address] Information not available 11/03/2023 Sex: Unknown Functional Status None recorded. Mental Status None recorded. Family History Relationship Description Onset Age of this Age Resolved Age Notes LastModified by Organization Details LastModified Time Father Family history of malignant neoplasm [email or web address] Not available 10/22 10:05:35 Mother Asthma [email or web address] Not availabl e 11/03/2023 10:05:43 Mother Hypertensive disorder [email or web address] Not available 10/22 10:06:01 Medical History No medical history recorded. Past Encounters Encounter ID Performer Location Encounter Start Date Encounter Closed Date Diagnosis/Indication Diagnosis SNOMED-CT Code Diagnosis ICD10 Code Diagnosis Note [id number] WM العراقي [facility] [place] [address] [place] [address] 11/03/2023 09:50:45 11/03/2023 10:43:26 Essential hypertension 41168471 I10 Hyperlipidemia 23909596 E78.5 Obese 488190898 E66.9 [facility] risk of nutritional deficit 767880678 Z91.89 [id number] WM العراقي [facility] [place] [address] [place] [address] 12/01/2023 10:04:01 12/01/2023 10:48:39 Vitamin D deficiency 46055132 E55.9 Essential hypertension 13861032 I10 Hyperlipidemia 76266897 E78.5 Obese 388809568 E66.9 [id number] WM العراقي [facility] [place] [address] [facility] [place] [place] [address] 10/03/2024 10:36:52 10/03/2024 11:24:44 Essential hypertension 85263945 I10 Pain of ri ght knee region 2057986856 69068 M25.561 Hyperlipidemia 60587021 E78.5 Screening for malignant neoplasm of prostate 703813351 Z12.5 Vitamin D deficiency 347 25410 E55.9 Adult heal th examination 115642015 Z00.00 [id number] WM العراقي [facility] [address] [place] [address] 12/04/2024 11:33:17 12/04/2024 12:14:30 Vitamin D deficiency 51675613 E55.9 Pain of ri ght knee region 1385531985 53925 M25.561 Essential hypertension 88149917 I10 Liver enzy mes level above reference range 311694004 R74.01 Hyperlipidemia 87672503 E78.5 [id number] WM العراقي [facility] [address] [place] [address] 01/01/2025 10:51:54 01/01/2025 11:22:17 Liver enzymes level above reference range 014308343 R74.01 Asthma 549483765 J45.90 9 Essential hypertension 54860850 I10 Hyperlipidemia 09487502 E78.5 Obese 078252224 E66.9 Health Concerns Section Related Observation LastModified by Organization Detai ls LastModified Time None Recorded Concern Status LastModified by Organization Details LastModified Time None Recorded Advance Directives Directive None Recorded Payers Encounter Date Sequence Insurance Name Policy Number Policy Sheridan Covered Member ID Sheridan Member ID Guarantor Name 11/03/2023 1 [facility] (MEDICAID REPLACEMENT - HMO) [id number] Gerson Navarrete [id number] Gerson Navarrete 12/01/2023 1 [facility] (MEDICAID REPLACEMENT - HMO) [id number] Gerson Navarrete [id number] Gerson Navarrete 10/03/2024 1 [facility] (PPO) [id number] Gerson Navarrete [id number] Gerson Navarrete 12/04/2024 1 [facility] (PPO) [id number] Gerson Navarrete [id number] Gerson Navarrete 01/01/2025 1 [facility] (PPO) [id number] Gerson Navarrete [id number] Gerson Navarrete Notes Date Note Type Note Provider Name and Address Organization Details Recorded Time 11/03/2023 text/html 43 y/o here to establish care WM العراقي [address] [employer], [place], [address], [facility] 11/15/2023 15:43:04 12/01/2023 text/html here for f./u WM العراقي [address], [place], [address], [facility] 12/05/2023 15:33:14 10/03/2024 text/html no changes WM العراقي [address], [address], [place], [address], [place] 10/25/2024 15:06:20 12/04/2024 text/html knee pain since starting atorvastatin . never had knee pain ever before WM العراقي [address], [place], [address], [employer] [facility] 12/11/2024 17:40:26 01/01/2025 text/html no changes WM العراقي [address], [place], [address], [employer] [facility] 01/04/2025 15:50:25
[2025-02-05 08:53] LABS: Alanine Aminotransferase 39 U/L (6-50); Albumin Level 4.5 g/dL (3.5-5.1); Alkaline Phosphatase 143 U/L (38-126); Amylase 90 U/L (30-110); Anion Gap 10 mmol/L (4-12); Aspartate Amino Transferase 38 U/L (17-59); Bilirubin,Total 0.4 mg/dL (0.2-1.3); Blood Urea Nitrogen 14 mg/dL (9-20); Calcium 9.2 mg/dL (8.4-10.2); Carbon Dioxide 27 mmol/L (22-30); Chloride 103 mmol/L (98-107); Estimated Glomerular Filt Rate > 60; Glucose 121 mg/dL (65-110); Lipase 126 U/L (23-300); Potassium 4.1 mmol/L (3.4-5.0); Sodium 140 mmol/L (137-145)
[2025-02-05 10:26] LABS: Hepatitis B Surface Antigen Negative (Negative)
[2025-02-05 10:32] LABS: HAV RESULT Negative (Negative); Hepatitis B Core IgM Result Negative (Negative)
[2025-02-05 10:43] LABS: Hepatitis C Virus Antibody Negative (Negative)
[2025-02-06 01:39] LABS: GGT 35 U/L (3-95)
== END 2025-02-05 08:13 | disposition home or self-care (01) ==
PROVIDERS: Visit Provider Physician Assistant
DX: R74.01 Elevation of levels of liver transaminase levels (principal)
CPT/HCPCS: 36415; 80053; 80074; 82150; 82977; 83690; 86803

== ENCOUNTER 2025-02-12 08:29 | Outpatient (CLI) | payer OTHER, SELFPAY ==
--- NOTE | ~2025-02-12 | US_ITS ---
RIGHT UPPER QUADRANT ABDOMINAL ULTRASOUND (Doppler ultrasound interrogation techniques used as needed for this exam.) Ordering provider: Martínez Grimes, PA History: . liver enzymes above reference range . Comparison: None. FINDINGS: PANCREAS: Normal echotexture and size. PORTAL VEIN: Hepatopedal flow demonstrated. LIVER: Normal size and increased echotexture. No focal hepatic lesions or perihepatic fluid collectio ns are identified. BILIARY DUCTS: No intra or extrahepatic biliary dilation. Common bile duct measures 3 mm in diameter which is normal for patient's age. GALLBLADDER: Normal. No stones, sludge, gallbladder wall thickening or pericholecystic fluid. Negati ve sonographic Fernandez's sign. RIGHT KIDNEY: Normal size. Measures 9.8 cm. No hydronephrosis, solid renal mass, renal calculi or per inephric fluid collections. No renal cysts. FREE FLUID: None visualized within the upper abdomen. IMPRESSION: Fat infiltration of the liver. Otherwise, normal right upper quadrant ultrasound. Reviewed, dictated and finalized at location A. IMPRESSION: Fat infiltration of the liver. Otherwise, normal right upper quadrant ultrasoun d.
== END 2025-02-12 08:30 | disposition home or self-care (01) ==
PROVIDERS: PCP Physician Assistant; Visit Provider Physician Assistant
DX: R74.01 Elevation of levels of liver transaminase levels (principal); K76.0 Fatty (change of) liver, not elsewhere classified
CPT/HCPCS: 76705

== ENCOUNTER 2025-04-29 22:50 | Emergency (ER) | payer OTHER, SELFPAY ==
--- NOTE | ~2025-04-29 | XR_ITS ---
Right Knee Technique: AP, lateral, and oblique views were obtained. Clinical History: Pain Findings: No fracture or dislocation is seen. Osseous alignment is anatomic. Joint spaces are preserv ed without degenerative or erosive change. Soft tissues are unremarkable. No joint effusion is seen. Impression: Unremarkable right knee radiographs. Reviewed, dictated and finalized at location . Impression: Unremarkable right knee radiographs.
--- OUTSIDE RECORDS SUMMARY | 2025-04-29 22:51 | XMS_ITS | Continuity of Care Document ---
Author Organization [facility] Address [address] [place] [address] Phone Care Team Providers Care Auto Radiator Specialist Name Role Phone Iggy Robertson Unavailable Unavailable Procedures Procedure Date Office Consultation Ophthalmoscopy Ophthalmoscopy Advance Directives Directive Yes / No Effective Date File Name No Information Encounters Encounter Description Practice Location Reason(s) For Visit Diagnoses Date Provider Providers Copied on Encounter Office Consultation [facility], [address], [place], [place], [id number], [place] tel:[phone] [facility] No Information [address] [place], [address], [place]. tel:[phone] Referring Provider: Lindsay Cruz, [address], [place], [address]. tel:[phone] Family History Family Member Type Diagnosis Age At Onset No Information Payers Payer name Insurance type Covered constitution party ID Authoriza tion(s) Medicaid [facility] [id number] Social History Type Description Quantity Date Captured [...]
--- OUTSIDE RECORDS SUMMARY | 2025-04-29 22:51 | XMS_ITS | Clinical Summary ---
Author Organization [facility] Address [address] [place] [address] Care Team Providers Care Field Marketing Representative Name Role Phone Alvina Maldonado MD Primary Care Provider [phone] Alvina Maldonado MD Unavailable [phone] Source Comments [facility],non-owned Affiliates and Associated Physician Practices is amultiple site organization consisting of ambulatory clinics and hospital sitesin [place], [place], [place] and [place]. This disclosure is being madepursuant to the Care Everywhere program and may not contain all information available regarding this patient. Last updated 18.[facility] Allergies Active Allergy Reactions Criticality Noted Date Comments Augmentin Rash Low 01/20/2016 Medications * Be aware that medications may not be up to date on this document. Alwaysverify current medications with the patient. 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 Gender Identity Not on file Sexual Orientation [...] 6:41 PM CDT Height 180 cm (5' 10.87) 07/12/2019 6:41 PM CDT Body Mass Index 39.2 07/12/2019 6:41 PM CDT Plan of Treatment Health Maintenance Due Date Last Done Comments LIPID TESTING 1981 HEPATITIS C SCREENING 01/24/1999 DTAP/TDAP/TD VACCINES (1 - Tdap) 01/29/2000 HEPATITIS B VACCINE (1 of 3 - 19+ 3-dose series) 01/29/2000 COVID-19 VACCINE ( - 2023-2 5 season) 2024 DEPRESSION SCREENING 11/22/2024 INFLUENZA VACCINE (Season Ended) 2025 ZOSTER VACCINE (1 of 2) 2031 HIV [...] ve Non-react daniela 07/12/2019 7:39 PM CDT [facility] Comment: Neither HIV-1 p24 Antigen nor HIV-1/HIV-2 Antibodies are detected. Blood BLOOD SPECIMEN / Unknown Venipuncture / Unknown 07/12/2019 6:55 PM CDT 07/12/2019 7:03 PM CDT us Pepper Levi MD LAB - HEMATOLOGY ORDERABLES F inal Result [address] [phone] from Last 3 Months or Most Recently Relevant to Health Maintenance Insurance [employer] A[employer] Care Teams Field Marketing Representative Relationship Specialty Start Date End Date Alvina Maldonado MD [address] [address] PCP - General Internal Medicine 01/20/16 Alvina Maldonado MD [address] [address] Internal Medicine 01/20/16
[2025-04-29 22:52] VITALS: BP 173/119; PULSE 87; RESP 16; TEMP 36.6; O2SAT 99
--- OUTSIDE RECORDS SUMMARY | 2025-04-29 22:52 | XMS_ITS | Data Portability ---
Author Organization [place] [facility] [employer] [facility], Main Office Address [address] [place] [address] Assessment No assessment recorded. Plan of Treatment Reminders Order Date Submit Date Provider Last Modified By Organization Details Last Modified Time Details Appointments Any 15 2024 08:00A WM Haile Not available Not available Not available Lab hepatitis panel (A+B+C), acute, serum [address] (Lab), [address] [place], [address], 01/08/2025 11:38:25 gamma-glu tamyl transfera se (ggt), serum [address] (Lab), [address] [place], [address], 01/08/2025 11:38:26 amylase, serum or plasma [address] (Lab), [address] [place], [address], 01/08/2025 11:38:26 hepatitis C virus Ab, serum [address] (Lab), [address] [place], [address], 01/08/2025 11:38:26 CMP, serum or plasma [address] (Lab), [address] [place], [address], 01/08/2025 11:38:26 lipase, serum or plasma [address] (Lab), [address] [place], [address], 01/08/2025 11:38:26 hepatitis panel (A+B+C), acute, serum [address] (Lab), [address] [place], [address], 12/11/2024 10:00:42 gamma-glu tamyl transfera se (ggt), serum [address] [place] [address] (Lab), [address] [place], [address], 12/11/2024 10:00:42 amylase, serum or plasma [address] [place] [address] (Lab), [address] [place], [address], 12/11/2024 10:00:42 hepatitis C virus Ab, serum [address] (Lab), [address] [place], [address], 12/11/2024 10:00:42 lipase, serum or plasma [address] [place] [address] (Lab), [address] [place], [address], 12/11/2024 10:00:42 CMP, serum or plasma [address] [place] [address] (Lab), [address] [place], [address], 12/11/2024 10:00:43 PSA, serum or plasma [address] (Lab), [address] [place], [address], 10/10/2024 08:29:58 vitamin D, 25-hydrox y, total, serum [address] (Lab), [address] [place], [address], 10/10/2024 08:29:57 lipid panel, serum 2023 [facility] (Lab), [address] [place], [address], 10/03/2024 18:55:35 CMP, serum or plasma 2023 [facility] (Lab), [address] [place], [address], 10/03/2024 18:55:35 CK (creatine kinase), total, serum [address] (Lab), [address] [place], [address], 10/10/2024 08:29:58 CBC w/ auto diff [address] (Lab), [address] [place], [address], 10/10/2024 08:29:58 TSH, serum or plasma 2023 024 [facility] (Lab), [address] [place], [address], 10/03/2024 18:55:35 glycohemo globin, total, blood [address] (Lab), [address] [place], [address], 10/10/2024 08:29:58 Referral None recorded. Procedures None recorded. Surgeries None recorded. Imaging US, liver [address] (Imaging), [address] [facility] [address], [place], [address], 01/01/2025 11:32:01 US, liver [address] (Imaging), [address] [facility] [address], [place], [address], 12/18/2024 17:23:00 Medication Orders amlodipin e 10 mg tablet 2024 025 [facility] #13053, [address], [place], [place], [id number], 02/05/2025 10:19:45 cholecalc iferol (vitamin D3) 1,250 mcg (50,000 unit) capsule 2024 025 [facility] #66283, [address], [place], [place], [id number], 12/04/2024 12:01:59 losartan 100 mg tablet 2024 025 [facility] #29958, [address], [place], [place], [id number], 12/04/2024 12:08:05 amlodipin e 5 mg tablet 2024 025 [facility] #27507, [address], [place], [place], [id number], 12/04/2024 12:08:04 ibuprofen 800 mg tablet 2024 025 [facility] #91791, [address], [place], [place], [id number], 12/04/2024 12:08:06 ibuprofen 800 mg tablet 2023 024 [facility] #25925, [address], [place], [place], [id number], 10/03/2024 11:31:59 spironola ctone 25 mg tablet 2023 024 [facility], [address], [place], [place], [id number], 10/03/2024 11:19:09 losartan 100 mg tablet 2023 024 [facility], [address], [place], [place], [id number], 10/03/2024 11:19:10 carvedilo l 12.5 mg tablet 2023 024 [email or web address] [facility] #74211, [address] , [place], [place], [id number], 10/04/2024 15:30:13 Vitamin D3 50 mcg (2,000 unit) capsule 2023 024 [facility] #60135, [address] , [place], [place], [id number], 12/01/2023 10:22:55 Patient TargetsNo targets recorded. Patient Instructions Encounter Date Encounter Id Patient Instructions Last Modified By Organization Details Last Modified Time 10/03/2024 [id number] recheck BP on own [email or web address] Not avai lable 10/25/2024 15:06:03 12/04/2024 [id number] recheck BP here tomorrow when he brings his son [email or web address] Not available 12/11/2024 17:39:43 02/05/2025 [id number] he will check hi s BP at home , and call us if it is high [email or web address] Not available 02/05/2025 10:22:21 Reason for Referral None Reported. Results Created Date Observation Date Name Description Value Unit Range Abnormal Flag Note LastModifiedBy Organization Detail LastModifiedTime 02/14/2002/12/2025 imagi ng/di agnos tic resul t No observ ation record ed. JACQUELIN [facility] [address], [place], [address], 02/13/2025 07:52:39 Result Notes None recorded. Problems Name Problem SNOMED Code Status Onset Date Resolution Date Notes Provider Name and Address Organization Details Recorded Time Essential hypertensio n 99757462 Active 2022 WM العراقي [address], [address], [place], [address], [employer] 3 10:20:42 Hyperlipide jayesh 68400724 Active 2022 WM العراقي [address], [address], [place], [address], [facility] [employer] [facility] 3 10:34:54 Obese 934449909 Active 2022 WM العراقي [address], [address], [place], [address], [employer] 3 10:37:54 At increased risk of nutritional deficit 923188864 Active 2022 WM العراقي [address], [address], [place], [address], [employer] [facility] 3 10:38:29 Vitamin D deficiency 25317990 Active 2023 WM العراقي [address], [address], [place], [address], [employer] 4 10:21:36 Asthma 158259887 Active 2023 Kyle Hubbard RN null, [employer] 4 14:17:05 Pain of right knee region 8043778373597 05 Active 2023 WM العراقي [address], [address], [place], [address], [facility] 4 11:13:55 Screening for malignant neoplasm of prostate Active 2023 WM العراقي [address], [address], [place], [address], [facility] 4 11:16:19 Adult health examination Active 2023 WM العراقي [address], [address], [place], [address], [facility] 4 15:04:42 Liver enzymes level above reference range 606772267 Active 2024 WM العراقي [address], [address], [place], [address], [facility] 5 12:09:10 Notes:his has MS, can't work Some problems listed in Documents: #[id number], #[id number], #[id number] could not be added to this patient's chart. Please review these documents and add these problems to the patient's chart manually as needed. Problem Notes None recorded. Procedures Surgical History Date Name Laterality Status Provider Name and Address Organization Details Recorded Time tonsillectomy completed Sunita Wray MA [place] [employer] 11/03/2023 10:08:33 Imaging Results None recorded. Procedure Notes None recorded. Medical Equipment None Reported. Allergies Allergen ID Allergen Name Allergen Category Reaction Reaction Severity Criticality Documentation Date Start Date Code Code System Note Provider Name and Address Organization Details Recorded Time 31494 Augmentin medicatio n hives Not available high 11/03/2023 22853 2 RxNorm Sunita Wray MA null, [employer] [facility] [employer] [facility] 3 10:02:30 Medications Name Sig Start Date Stop [...] Available Not Available No t Available amlodipine 10 mg tablet TAKE 1 TABLET BY [...] active Not Available Not Available Not Avai lable Jardiance 10 mg tablet TAKE 1 TABLET BY MOUTH DAILY 10/03 completed Not Available Not Available Not Available Vitals Date Recorded Body weight Body temperature Heart rate Oxygen saturation Oxygen saturation in Arterial blood by Pulse oximetry Systolic blood pressure Diastolic blood pressure Provider Name and Address Organization Details Last Updated DateTime 4 963754. 56 g 97 [degF] 78 /min 98 % 98 % 176 mm[Hg] 112 mm[Hg] Sunita Wray MA [place] [employer] [facility] 4 10:09:18 Date Recorded Body height Body temperature Oxygen saturation Oxygen saturation in Arterial blood by Pulse oximetry Heart rate Body mass index (BMI) Body weight Systolic blood pressure Diastolic blood pressure Provider Name and Address Organization Details Last Updated DateTime 5 177.8 cm 97.7 [degF] 97 % 97 % 86 /min 46.9 kg/m2 368942. 63 g 148 mm[Hg] 110 mm[Hg] Celesta Brown, RN [facility] [employer] [facility] 5 11:53:39 Date Recorded Body height Body mass index (BMI) Body weight Body temperature Heart rate Respiratory rate Oxygen saturation Oxygen saturation in Arterial blood by Pulse oximetry Systolic blood pressure Diastolic blood pressure Provider Name and Address Organization Details Last Updated DateTime 5 177.8 cm 46.4 kg/m2 028560. 77 g 98 [degF] 98 /min 16 /min 98 % 98 % 130 mm[Hg] 90 mm[Hg] Sisi [facility] [employer] [facility] 5 10:59:29 Date Recorded Body height Body mass index (BMI) Body weight Body temperature Heart rate Respiratory rate Oxygen saturation Oxygen saturation in Arterial blood by Pulse oximetry Systolic blood pressure Diastolic blood pressure Provider Name and Address Organization Details Last Updated DateTime 5 177.8 cm 47 kg/m2 489089. 14 g 97.9 [degF] 91 /min 16 /min 98 % 98 % 150 mm[Hg] 94 mm[Hg] Sisi [facility] [employer] [facility] 5 10:05:17 Date Recorded Body weight Body mass index (BMI) Body height Body temperature Heart rate Oxygen saturation Oxygen saturation in Arterial blood by Pulse oximetry Systolic blood pressure Diastolic blood pressure Provider Name and Address Organization Details Last Updated DateTime 4 804718. 93 g 46.5 kg/m2 177.8 cm 98.1 [degF] 85 /min 95 % 95 % 144 mm[Hg] 110 mm[Hg] Nohemy Chung RN [facility] [employer] [facility] 4 10:53:33 Social History Question Answer Notes LastModified by Organizat ion Details LastModified Time Tobacco Smoking Status Never Smoker SHANIKA Baptiste, [facility] [employer] [facility] 11/03/2023 10:07:25 What Is Your Level Of Caffeine Consumption? None [email or web address] Information not available 11/03/2023 Do You Use Your Seat Belt Or Car Seat Routinely? Yes [email or web address] Information not available 11/03/2023 Do You Participate In Social Media? No [email or web address] Information not available 11/03/2023 Sex: Unknown Functional Status Question Answer Note LastModified by Organizat ion Details LastModified Time Do you use any illicit or recreational drugs? No [email or web address] Information not available 11/03/2023 Do you or have you ever used any other forms of tobacco or nicotine? No [email or web address] Information not available 11/03/2023 What is your level of alcohol consumption? Occasional [email or web address] Information not available 11/03/2023 Mental Status Question Answer Note LastModified by Organization D etails LastModified Time Do you feel stressed (tense, restless, nervous, or anxious, or unable to sleep at night)? [id number] [email or web address] Information not available 11/03/2023 Family History Relationship Description Onset Age of this Age Resolved Age Notes LastModified by Organization Details LastModified Time Father Family history of malignant neoplasm Not available 10/22 10:05:35 Mother Asthma Not availabl e 11/03/2023 10:05:43 Mother Hypertensive disorder [email or web address] Not available 10/22 10:06:01 Medical History No medical history recorded. Past Encounters Encounter ID Performer Location Encounter Start Date Encounter Closed Date Diagnosis/Indication Diagnosis SNOMED-CT Code Diagnosis ICD10 Code Diagnosis Note [id number] Ria Dueñas MD [facility]reet [facility] [place] [address] 11/03/2023 09:50:45 11/03/2023 10:43:26 Essential hypertension 27095006 I10 Hyperlipidemia 59073567 E78.5 Obese 486400096 E66.9 At [facility] risk of nutritional deficit 644729310 Z91.89 [id number] Ria Dueñas MD [facility] Manpreet llnicholas [address] [place] [address] 12/01/2023 10:04:01 12/01/2023 10:48:39 Vitamin D deficiency 53315036 E55.9 Essential hypertension 44001193 I10 Hyperlipidemia 33586720 E78.5 Obese 942900172 E66.9 [id number] Errol Arcos MD [facility] Manpreet vizcarra [facility] [place] [address] 10/03/2024 10:36:52 10/03/2024 11:24:44 Essential hypertension 56190889 I10 Pain of ri ght knee region 4814590011 40536 M25.561 Hyperlipidemia 99155576 E78.5 Screening for malignant neoplasm of prostate 005931057 Z12.5 Vitamin D deficiency 347 61829 E55.9 Adult heal th examination 273343447 Z00.00 [id number] Errol Arcos MD [facility] [address] [place] [address] 12/04/2024 11:33:17 12/04/2024 12:14:30 Vitamin D deficiency 63761798 E55.9 Pain of ri ght knee region 3107952209 84439 M25.561 Essential hypertension 46343605 I10 Liver enzy mes level above reference range 540257331 R74.01 Hyperlipidemia 91017484 E78.5 [id number] Errol Arcos MD [facility] [address] [place] [address] 01/01/2025 10:51:54 01/01/2025 11:22:17 Liver enzymes level above reference range 132263061 R74.01 Asthma 882617864 J45.90 9 Essential hypertension 32815818 I10 Hyperlipidemia 89827240 E78.5 Obese 629719204 E66.9 [id number] Errol Arcos MD [address] [address] 02/05/2025 09:45:57 02/05/2025 11:15:42 Essential hypertension 39610613 I10 Health Concerns Section Related Observation LastModified by Organization Detai ls LastModified Time None Recorded Concern Status LastModified by Organization Details LastModified Time None Recorded Advance Directives Directive None Recorded Payers Encounter Date Sequence Insurance Name Policy Number Policy Sheridan Covered Member ID Sheridan Member ID Guarantor Name 12/01/2023 1 [facility] (MEDICAID REPLACEMENT - HMO) [id number] Gerson Navarrete [id number] Gerson Navarrete 10/03/2024 1 [facility] (PPO) [id number] Gerson Hancock Landon [id number] Gerson Navarrete 12/04/2024 1 [facility] (PPO) [id number] Gerson Hancock Landon [id number] Gerson Navarrete 01/01/2025 1 [facility] (PPO) [id number] Gerson Hancock Landon [id number] Gerson Navarrete 02/05/2025 1 [facility] (PPO) [id number] Gerson Hancock Landon [id number] Gerson Navarrete Notes Date Note Type Note Provider Name and Address Organization Details Recorded Time 12/01/2023 text/html here for f./u WM العراقي [address], [place], [address], [employer] 12/05/2023 15:33:14 10/03/2024 text/html no changes WM العراقي [address], [place], [address], [employer] 10/25/2024 15:06:20 12/04/2024 text/html knee pain since starting atorvastatin . never had knee pain ever before WM العراقي [address], [place], [address], [employer] [facility] 12/11/2024 17:40:26 01/01/2025 text/html no changes WM العراقي [address], [place], [address], [facility] [facility] 01/04/2025 15:50:25 02/05/2025 text/html no changes WM العراقي [address], [place], [address], [employer] 02/11/2025 15:25:29
[2025-04-30 01:28] VITALS: BP 150/99; PULSE 69; RESP 18; O2SAT 98
--- NOTE | 2025-04-30 02:08 | ED_ITS ---
HPI - General Adult General Chief complaint: Extremity Injury, Lower Stated complaint: RIGHT KNEE PAIN Time Seen by Provider: 04/30/25 01:55 History of Present Illness HPI narrative: Patient is a 45-year-old male who presents emergency department this evening complaining of chronic right knee pain for the past month. Patient states that he can not remember exactly what he was doing when the pain started but denies any trauma, any falls, and any sports injury. Patient states the pain is worse when he stands up from a seated position or when he is walking for a long. No additional symptoms or concerns at this time. Patient admits that he has not been taking anything for pain at home. Related Data Allergies Allergy/AdvReac Type Severity Reaction Status Date / Time amoxicillin (From Augmentin) Allergy Unknown Verified 04/30/25 01:33 clavulanic acid (From Allergy Unknown Verified 04/30/25 01:33 Augmentin) AMOXICILLIN TRIHYDRATE Allergy Mild Unknown Uncoded 04/29/25 22:56 POTASSIUM CLAVULANATE Allergy Mild Unknown Uncoded 04/29/25 22:56 Review of Systems Review of Systems: All systems are reviewed and are negative unless stated otherwise in the HPI. [facility] Past Medical History Medical History Essential hypertension, malignant Obesity BMI of 41.4 10/31/2022 Kidney stones Left ureteral stone with hydronephrosis April 2021 Hepatic steatosis Asthma Surgical History Surgical History History of tonsillectomy (~2018) Family History Family History Father , 68 Agent orange exposure Mother Asthma Meningitis Social History Social History Social History: Patient lives with his of 21 years. They have 2 children ages 18 and 19 years old. He very rarely drinks alcohol and only small amounts. 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 Code status: Full code Surrogate decision maker: Smoking status: Never smoker Alcohol intake: never Drinks per week: 1 Alcohol use details: Rare use in small amounts Substance use: never Substance use type: does not use Lack of Transportation: No Lack of Food: Never True Current Housing: I Have Housing Concerned About Future Housing: No Difficulty Paying Gas/Electric Bills: No Difficulty Paying for Meds: No Currently Unemployed: No Education: Decline to Answer Difficulty w/ Childcare or Family Care: No Additional living arrangements comments: Gender identity (if verbalized by the patient): Male Sexual Orientation (if Verbalized by the Patient): Straight or Heterosexual Spiritual care concerns: No Exam Narrative: General: Alert, awake, afebrile, in no acute distress. HEENT: PERRL, no rhinorrhea, no post nasal drip, oropharynx clear. Neck: Trachea midline, no JVD, no lymphadenopathy. Cardiovascular: Regular rate and rhythm, no murmurs, rubs or gallops, no peripheral edema. Respiratory: Clear to auscultation bilaterally, no tachypnea, no wheezing, no rhonchi, no rubs, no respiratory distress. Abdomen: Soft, nontender, nondistended, no rebound, no guarding, no peritoneal signs. Musculoskeletal: No joint swelling or deformity specifically in the right knee joint, normal muscle tone, intact bilateral hip flexions any extensions, negative anterior/posterior drawer. Skin: No rashes or petechia, no signs of infection. Psychiatric: Alert and oriented, normal behavior and judgment for situation. Neurological: Alert and oriented to person, place, and time. Follows all commands. No focal deficits, speech is clear and fluent. Course Vital Signs Vital signs: Vital Signs Temperature 97.8 F 04/29/25 22:52 Pulse Rate 87 04/29/25 22:52 Respiratory Rate 16 04/29/25 22:52 Blood Pressure 173/119 H 04/29/25 22:52 Pulse Oximetry 99 04/29/25 22:52 Oxygen Delivery Room Air 04/29/25 22:52 Temperature 97.8 F 04/29/25 22:52 Pulse Rate 78 04/30/25 02:12 Respiratory Rate 18 04/30/25 02:12 Blood Pressure 160/100 H 04/30/25 02:12 Pulse Oximetry 97 04/30/25 02:12 Oxygen Delivery Room Air 04/29/25 22:52 Medical Decision Making MDM Narrative Medical decision making narrative: The patient was evaluated by myself in the emergency department. History is obtained from patient who is an independent historian and physical exam was performed. External medical records were reviewed at this time. Patient was administered ibuprofen 400 mg p.o. Imaging studies obtained included right knee x-ray which was independently interpreted by me revealing no acute process, which is pending final radiology interpretation. Differential diagnosis considerations include meniscal versus ligamentous injury, fracture, dislocation, musculoskeletal strain. Comorbidities impacting this visit include none. I have evaluated and discussed social determinants of health with the patient that could potentially impact subsequent diagnosis and treatment plans. On repeat assessment of the patient, reevaluation revealed that the patient is doing well and is in no acute distress. Patient symptoms have improved since he arrived to our emergency department. Repeat vital signs were all reviewed and noted to be stable. Differential diagnosis and treatment plan were discussed with the patient at bedside. Patient agrees with discussion and after shared medical decision making agrees with discharge. All questions were answered to the patient's satisfaction. Patient will follow up with his PCP in 3-5 days. He was provided with an orthopedic consult instructed to call to follow-up appointment. Patient was provided with strict return precautions and instructed to return to the emergency department if any new or worsening symptoms develop. The patient was discharged in stable condition. Vital Signs Vital Signs: Vital Signs Temperature 97.8 F 04/29/25 22:52 Pulse Rate 87 04/29/25 22:52 Respiratory Rate 16 04/29/25 22:52 Blood Pressure 173/119 H 04/29/25 22:52 Pulse Oximetry 99 04/29/25 22:52 Oxygen Delivery Room Air 04/29/25 22:52 Temperature 97.8 F 04/29/25 22:52 Pulse Rate 78 04/30/25 02:12 Respiratory Rate 18 04/30/25 02:12 Blood Pressure 160/100 H 04/30/25 02:12 Pulse Oximetry 97 04/30/25 02:12 Oxygen Delivery Room Air 04/29/25 22:52 Discharge Plan Discharge Clinical Impression: Acute internal derangement of right knee Patient Disposition: Home Condition: Improved Instructions: Antibiotic Form, Knee Pain (ED) Additional Instructions: Please follow-up with your family doctor within the next 3-5 days. Return to emergency department if any new or worsening symptoms develop. Your provided with an orthopedic referral and instructed to call to set up a follow-up appointment. Use ibuprofen 400 mg every 8 hours as needed for pain. Patient Language: Australian Prescriptions: No Action atorvastatin 40 mg tablet 40 mg PO DAILY Qty: 30 0RF carvedilol [Coreg] 12.5 mg Tablet 12.5 mg PO Q12HR Qty: 60 0RF spironolactone 25 mg Tablet 25 mg PO QAM Qty: 30 0RF aspirin [Children's Aspirin] 81 mg Tablet,Chewable 81 mg PO DAILY@0800 Qty: 30 0RF albuterol sulfate 90 mcg/actuation HFA aerosol inhaler 2 puff inhalation Q4-6H PRN (Reason: shortness of breath or wheezing) 30 Days Qty: 8.5 0RF losartan 100 mg Tablet 100 mg PO DAILY Qty: 30 0RF Follow-up/Referrals: Cornelio,WM Thomas [Primary Care Provider] - Conrado Penn MD [Physician] - 3 Days Time of Disposition: 02:08
[2025-04-30 02:12] VITALS: BP 160/100; PULSE 78; RESP 18; O2SAT 97
[2025-04-30] MEDS: IBUPROFEN 400 MG TABLET PO (02:12)
--- OUTSIDE RECORDS SUMMARY | 2025-04-30 02:13 | XMS_ITS | Clinical Summary ---
Author Organization [facility] Address [address] [address] Care Team Providers Care Safety Tech Name Role Phone Alvina Maldonado MD Primary Care Provider [phone] Alvina Maldonado MD Unavailable [phone] Source Comments [facility],non-owned Affiliates and Associated Physician Practices is amultiple site organization consisting of ambulatory clinics and hospital sitesin [place], [place], [place] and [place]. 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 Blood BLOOD SPECIMEN / Unknown Venipuncture / Unknown 07/12/2019 6:55 PM CDT 07/12/2019 7:03 PM CDT us Pepper Levi MD LAB - HEMATOLOGY ORDERABLES F inal Result [address] [phone] from Last 3 Months or Most Recently Relevant to Health Maintenance Insurance AETNA AETNA Care Teams Safety Tech Relationship Specialty Start Date End Date Alvina Maldonado MD [address] [address] PCP - General Internal Medicine 01/20/16 Alvina Maldonado MD [address] [address] Internal Medicine 01/20/16
--- OUTSIDE RECORDS SUMMARY | 2025-04-30 02:13 | XMS_ITS | Continuity of Care Document ---
Author Organization [facility] Address [address] [place] [address] Phone Care Team Providers Care Mechanic Welder Truck Driver Name Role Phone Iggy Robertson Unavailable Unavailable Procedures Procedure Date Office Consultation Ophthalmoscopy Ophthalmoscopy Advance Directives Directive Yes / No Effective Date File Name No Information Encounters Encounter Description Practice Location Reason(s) For Visit Diagnoses Date Provider Providers Copied on Encounter Office Consultation Formerly [facility], [address], [place], [place], [id number], [place] tel:[phone] [facility] No Information [address] [place], [address], [place]. tel:[phone] Referring Provider: Lindsay Cruz, [address], [place], [address]. tel:[phone] Family History Family Member Type Diagnosis Age At Onset No Information Payers Payer name Insurance type Covered republican ID Authoriza tion(s) Medicaid [facility] [id number] Social History Type Description Quantity Date Captured [...]
== END 2025-04-30 02:17 | disposition home or self-care (01) ==
LOC: ANHED 04-30 02:11
PROVIDERS: Emergency Provider Emergency Medicine; PCP Physician Assistant
DX: M23.91 Unspecified internal derangement of right knee (principal); I10 Essential (primary) hypertension
CPT/HCPCS: 73562; 99283; A9270

== ENCOUNTER 2025-06-24 00:46 | Emergency (ER) | payer OTHER, SELFPAY ==
[2025-06-24 00:47] VITALS: BP 192/112; PULSE 87; RESP 18; TEMP 36.6; O2SAT 98
--- OUTSIDE RECORDS SUMMARY | 2025-06-24 00:48 | XMS_ITS | Continuity of Care Document ---
Author Organization [facility] Address [address] [facility] [address] [place] [address] Phone Care Team Providers Care Correctional Maintenance Technician Name Role Phone Iggy Robertson Unavailable Unavailable Procedures Procedure Date Office Consultation Ophthalmoscopy Ophthalmoscopy Advance Directives Directive Yes / No Effective Date File Name No Information Encounters Encounter Description Practice Location Reason(s) For Visit Diagnoses Date Provider Providers Copied on Encounter Office Consultation [facility], [address], [place], [place], [id number], [place] tel:[phone] [facility] No Information [address] [place], [address], [place]. tel:[phone] Referring Provider: Lindsay Cruz, [address], [place], [address]. tel:[phone] Family History Family Member Type Diagnosis Age At Onset No Information Payers Payer name Insurance type Covered green party ID Authoriza tion(s) Medicaid [facility] [id number] Social History Type Description Quantity Date Captured [...]
--- OUTSIDE RECORDS SUMMARY | 2025-06-24 00:48 | XMS_ITS | Clinical Summary ---
Author Organization [facility] Address [address] [place] [address] Care Team Providers Care Play Therapist Name Role Phone Alvina Maldonado MD Primary Care Provider [phone] Alvina Maldonado MD Unavailable [phone] Source Comments [facility],non-owned Affiliates and Associated Physician Practices is amultiple site organization consisting of ambulatory clinics and hospital sitesin [place], [place], [place] and [place]. This disclosure is being madepursuant to the Care Everywhere program and may not contain all information available regarding this patient. Last updated 18.[facility] Allergies Active Allergy Reactions [...] on file Legal Sex Male 3:30 PM [employer] Gender Identity Not on file Sexual Orientation [...] of 3 - 19+ 3-dose series) 01/29/2000 HPV VACCINE (1 - 3-dose SCDM series) 01/29/2008 COVID-19 VACCINE (1 - 2023-2 5 season) 2024 DEPRESSION SCREENING 11/22/2024 INFLUENZA VACCINE (#1) 2025 ZOSTER VACCINE (1 of 2) 2031 [...] ve Non-react daniela 07/12/2019 7:39 PM CDT [facility] Comment: Neither HIV-1 p24 Antigen nor HIV-1/HIV-2 Antibodies are detected. Blood BLOOD SPECIMEN / Unknown Venipuncture / Unknown 07/12/2019 6:55 PM CDT 07/12/2019 7:03 PM CDT us Pepper Levi MD LAB - HEMATOLOGY ORDERABLES F inal Result [address] [phone] from Last 3 Months or Most Recently Relevant to Health Maintenance Insurance AETNA AETNA Care Teams Play Therapist Relationship Specialty Start Date End Date Alvina Maldonado MD [address] [address] PCP - General Internal Medicine 01/20/16 Alvina Maldonado MD [address] [address] Internal Medicine 01/20/16
[2025-06-24 02:09] VITALS: BP 187/110; PULSE 89; RESP 17; O2SAT 98
[2025-06-24] MEDS: dexAMETHasone SOD PHOS INJ 10 MG/ML 1 ML VIAL BY MOUTH (02:16)
[2025-06-24] MEDS: KETOROLAC 30 MG/ML VIAL (*BKC) 15 MG IM (02:16)
--- OUTSIDE RECORDS SUMMARY | 2025-06-24 02:37 | XMS_ITS | Continuity of Care Document ---
Author Organization [facility] Address [address] [facility] [address] [place] [address] Phone Care Team Providers Care Manager Privacy Name Role Phone Iggy Robertson Unavailable Unavailable Procedures Procedure Date Office Consultation Ophthalmoscopy Ophthalmoscopy Advance Directives Directive Yes / No Effective Date File Name No Information Encounters Encounter Description Practice Location Reason(s) For Visit Diagnoses Date Provider Providers Copied on Encounter Office Consultation [facility], [address] [place] [address], [place], [place], [id number], [place] tel:[phone] [facility] No Information [address] [place], [address], [place]. tel:[phone] Referring Provider: Lindsay Cruz, [address] [place] [address], [place], [address]. tel:[phone] Family History Family Member Type Diagnosis Age At Onset No Information Payers Payer name Insurance type Covered green party ID Authoriza tion(s) Medicaid [facility] [id number] Social History Type Description Quantity Date Captured [...]
--- OUTSIDE RECORDS SUMMARY | 2025-06-24 02:37 | XMS_ITS | Clinical Summary ---
Author Organization [facility] Address [address] [place] [address] Care Team Providers Care Trust Administrative Assistant Name Role Phone Alvina Maldonado MD Primary Care Provider [phone] Alvina Maldonado MD Unavailable [phone] [facility],non-owned Affiliates and Associated Physician Practices is amultiple site organization consisting of ambulatory clinics and hospital sitesin [place], [place], [place] and [place]. This disclosure is being madepursuant to the Care Everywhere program and may not contain all information available regarding this patient. Last updated 18.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 Blood BLOOD SPECIMEN / Unknown Venipuncture / Unknown 07/12/2019 6:55 PM CDT 07/12/2019 7:03 PM CDT us Pepper Levi MD LAB - HEMATOLOGY ORDERABLES F inal Result [address] [phone] from Last 3 Months or Most Recently Relevant to Health Maintenance Insurance AETNA AETNA Care Teams Trust Administrative Assistant Relationship Specialty Start Date End Date Alvina Maldonado MD [address] [address] PCP - General Internal Medicine 01/20/16 Alvina Maldonado MD [address] [address] Internal Medicine 01/20/16
[2025-06-24 02:41] LABS: Strep Group A RT-PCR NOT DETECTED (Negative)
[2025-06-24 02:53] LABS: Influenza A QL RT-PCR Negative (Negative); Influenza B QL RT-PCR Negative (Negative); RSV RNA, RT-PCR Negative (Negative); SARS-CoV-2 RNA PCR Negative (Negative)
--- NOTE | 2025-06-24 02:53 | ED.GENADULT ---
HPI - General Adult General Chief complaint: Unspecified Stated complaint: sore throat Time Seen by Provider: 06/24/25 02:04 History of Present Illness HPI narrative: Patient presents here with sore throat, has been ongoing for last 2 days. History of frequent strep infections but had his tonsils removed. Also has congestion and nasal drainage. No chest pain, shortness of breath, headache Related Data Allergies Allergy/AdvReac Type Severity Reaction Status Date / Time amoxicillin (From Augmentin) Allergy Unknown Verified 06/24/25 02:09 clavulanic acid (From Allergy Unknown Verified 06/24/25 02:09 Augmentin) AMOXICILLIN TRIHYDRATE Allergy Mild Unknown Uncoded 04/29/25 22:56 POTASSIUM CLAVULANATE Allergy Mild Unknown Uncoded 04/29/25 22:56 Review of Systems Review of Systems: All systems reviewed & are unremarkable except as noted in HPI and below PMFSH Past Medical History Medical History Essential hypertension, malignant Obesity BMI of 41.4 10/31/2022 Kidney stones Left ureteral stone with hydronephrosis April 2021 Hepatic steatosis Asthma Surgical History Surgical History History of tonsillectomy (~2018) Family History Family History Father , 68 Agent orange exposure Mother Asthma Meningitis Social History Social History Social History: Patient lives with his of 21 years. They have 2 children ages 18 and 19 years old. He very rarely drinks alcohol and only small amounts. 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 Code status: Full code Surrogate decision maker: Smoking status: Never smoker Alcohol intake: never Drinks per week: 1 Alcohol use details: Rare use in small amounts Substance use: never Substance use type: does not use Lack of Transportation: No Lack of Food: Never True Current Housing: I Have Housing Concerned About Future Housing: No Difficulty Paying Gas/Electric Bills: No Difficulty Paying for Meds: No Currently Unemployed: No Education: Decline to Answer Difficulty w/ Childcare or Family Care: No Additional living arrangements comments: Gender identity (if verbalized by the patient): Male Sexual Orientation (if Verbalized by the Patient): Straight or Heterosexual Spiritual care concerns: No Exam Narrative: EXAMINATION OF ORGAN SYSTEMS/BODY AREAS: Constitutional: Vital signs per nursing GENERAL:[No acute distress, non-toxic appearing.] HEAD: Normal with no signs of head trauma. EYES: EOMI, conjunctiva normal ENT: No trismus, no oropharyngeal swelling LUNGS: Nonlabored breathing. HEART: [Regular rate and rhythm] ABD: [Soft], [nontender to palpation] EXT: Normal range of motion SKIN: [No rashes or lesions.] NEURO: [Alert and oriented x 3. No gross focal sensory or strength deficits.] PSYCH: Normal affect Course Vital Signs Vital signs: Vital Signs Temperature 97.8 F 06/24/25 00:47 Pulse Rate 87 06/24/25 00:47 Respiratory Rate 18 06/24/25 00:47 Blood Pressure 192/112 H 06/24/25 00:47 Pulse Oximetry 98 06/24/25 00:47 Oxygen Delivery Room Air 06/24/25 00:47 Temperature 97.8 F 06/24/25 00:47 Pulse Rate 89 06/24/25 02:09 Respiratory Rate 17 06/24/25 02:09 Blood Pressure 187/110 H 06/24/25 02:09 Pulse Oximetry 98 06/24/25 02:09 Oxygen Delivery Room Air 06/24/25 02:09 Medical Decision Making MDM Narrative Medical decision making narrative: Patient with sore throat for the last 2 days, he also happens to have asymptomatic hypertension. He does have history of hypertension and has been medications for this, No signs or symptoms of end organ dysfunction; no chest pain or shortness of breath, neurological deficits, severe headaches, visual disturbance, oliguria, or symptoms of dissection/AAA). Since he has a known history of this and no symptoms, discussed with patient he may need to talk to his doctor about readjusting his medications and following up with them. Patient very well-appearing here, speaking with normal voice, no trismus or neck swelling. He will be swabbed for the flu, COVID, RSV, given dose of medications for his symptoms. Swabs are negative, I do feel he is stable for discharge with close follow-up his primary care doctor for further evaluation and possible change to his medications. Vital Signs Vital Signs: Vital Signs Temperature 97.8 F 06/24/25 00:47 Pulse Rate 87 06/24/25 00:47 Respiratory Rate 18 06/24/25 00:47 Blood Pressure 192/112 H 06/24/25 00:47 Pulse Oximetry 98 06/24/25 00:47 Oxygen Delivery Room Air 06/24/25 00:47 Temperature 97.8 F 06/24/25 00:47 Pulse Rate 89 06/24/25 02:09 Respiratory Rate 17 06/24/25 02:09 Blood Pressure 187/110 H 06/24/25 02:09 Pulse Oximetry 98 06/24/25 02:09 Oxygen Delivery Room Air 06/24/25 02:09 Lab Data Labs: Lab Results 06/24/25 Range/Units 02:08 Influenza A (RT-PCR) Negative (Negative) Influenza B (RT-PCR) Negative (Negative) RSV (RT-PCR) Negative (Negative) SARS-CoV-2 RNA (RT-PCR) Negative (Negative) Group A Strep (PCR) Not detected (Negative) Discharge Plan Discharge Clinical Impression: Acute sore throat Patient Disposition: Home Condition: Stable Instructions: Pharyngitis (ED), Chronic Hypertension (ED) Additional Instructions: Your swabs today for flu, COVID, RSV, and strep are thankfully negative. Your blood pressure was quite elevated today, please talk to your doctor about possibly changing your medications to help get your blood pressure under better control. You can try the medications as prescribed. Please follow up with your doctor; you can always return for any further issues. Patient Language: Czech Prescriptions: New acetaminophen [Tylenol Extra Strength] 500 mg tablet 1,000 mg PO Q6H PRN (Reason: pain) Qty: 50 0RF fluticasone propionate [Allergy Relief (fluticasone)] 50 mcg/actuation spray,suspension 1 spray intranasal DAILY Qty: 16 0RF Rx Instructions: administer into each nostril ibuprofen 600 mg tablet 600 mg PO TID PRN (Reason: fever or pain) Qty: 30 0RF No Action atorvastatin 40 mg tablet 40 mg PO DAILY Qty: 30 0RF carvedilol [Coreg] 12.5 mg Tablet 12.5 mg PO Q12HR Qty: 60 0RF spironolactone 25 mg Tablet 25 mg PO QAM Qty: 30 0RF aspirin [Children's Aspirin] 81 mg Tablet,Chewable 81 mg PO DAILY@0800 Qty: 30 0RF albuterol sulfate 90 mcg/actuation HFA aerosol inhaler 2 puff inhalation Q4-6H PRN (Reason: shortness of breath or wheezing) 30 Days Qty: 8.5 0RF losartan 100 mg Tablet 100 mg PO DAILY Qty: 30 0RF Follow-up/Referrals: PHYSICIAN,OPHTHALMIC TECHNICIAN [Primary Care Provider] -
== END 2025-06-24 03:36 | disposition home or self-care (01) ==
PROVIDERS: Emergency Provider Emergency Medicine
DX: J02.9 Acute pharyngitis, unspecified (principal); Z20.822 Contact with and (suspected) exposure to COVID-19; J45.909 Unspecified asthma, uncomplicated; E66.9 Obesity, unspecified; Z68.42 Body mass index [BMI] 45.0-49.9, adult; Z87.442 Personal history of urinary calculi; Z79.82 Long term (current) use of aspirin; Z79.899 Other long term (current) drug therapy
CPT/HCPCS: 87637; 87651; 96372; 99283; J1100; J1885